=== PATIENT | female | born 1985 | race Hispanic/Latino ===

== ENCOUNTER → 2016-09-18 | Outpatient (CLI) | payer OTHER ==
[~2016-09-18] MED LIST: AMOX500T2 PO; DOCU-143 PO; FERR-74 PO; HYDR-3812 PO; IBUP-1773 PO; PREN-148 PO
--- NOTE | 2016-09-18 15:09 | Diagnostic Imaging Report ---
PROCEDURE: US OB SINGLE FETUS <14 WKS. TECHNIQUE: Multiple real-time grayscale images were obtained over the gravid uterus in various projections. INDICATION: Dating. FINDINGS: The growth parameters are: Head circumference: 14 weeks and one day Abdominal circumference: 14 weeks and one day Femur length: 14 weeks and zero day These average at: 14 weeks and one day. This corresponds with PENELOPE of 03/18/2017. The cervix appears closed and measures approximately 4 cm. There is some shadowing obscuring portions of the cervix. The placental implantation is anterior and appears close to the internal os at this time. IMPRESSION: Live intrauterine . PENELOPE is 03/18/2017. survey at 18-20 weeks of gestation is recommended. Dictated by: Dictated on workstation # [id number]
== END ==
LOC: RAD 13:49
PROVIDERS: ATTEND Family Medicine
DX: Z36 Encounter for antenatal screening of mother (principal); Z3A.14 14 weeks gestation of pregnancy
CPT/HCPCS: 76801

== ENCOUNTER → 2016-10-16 | Outpatient (CLI) | payer OTHER ==
--- NOTE | 2016-10-16 14:33 | Diagnostic Imaging Report ---
INDICATION: survey. TECHNIQUE: Multiple real-time grayscale images were obtained over the gravid uterus. COMPARISON: 09/18/2016. FINDINGS: The previous OB ultrasound exam of 09/18/2016 noted a single live fetus of approximately 14 weeks 1 day gestation +/- 1 week. On this study, the fetus is again identified. The fetus is cephalic in presentation. heart motion is noted and a rate of 142 bpm is recorded. There are no abnormalities identified, but the cord insertion is not well visualized. The placenta is posterior and there is no previa. The amniotic fluid volume is within normal limits. The growth parameters are fairly uniform and have progressed as expected since the prior exam. IMPRESSION: 1. There is a single live fetus of approximately 18 weeks 1 day gestation +/- 1 week. The EDC remains March 18, 2017. 2. There are no abnormalities identified although the cord insertion is not well visualized. It may prove worthwhile to have a short-term (4-6 weeks) follow-up exam for further evaluation of the cord insertion. 3. The growth parameters have progressed as expected since the prior study. Biometrical measurements are as follows: Biparietal 3.8 cm, age 17 weeks 4 days. Head circumference 14.2 cm, age 17 weeks 4 days. Abdominal circumference 11.8 cm, age 17 weeks 4 days. Femur length 2.6 cm, age 18 weeks 0 days. Sonographic estimate age: 17 weeks 5 days. Sonographic estimated date of delivery: 03/21/17. Estimated Weight: 207 gm (+/- 30 gm). LMP percentile: 22%. heart rate: 142 beats per minute. number: 1 of 1. Dictated by: Dictated on workstation # [id number]
== END ==
LOC: RAD 10:03
PROVIDERS: ATTEND Family Medicine
DX: Z36 Encounter for antenatal screening of mother (principal); Z3A.17 17 weeks gestation of pregnancy
CPT/HCPCS: 76805

== ENCOUNTER 2017-03-15 08:58 | Inpatient (IN) | payer SELFPAY ==
[~2017-03-15] VITALS: Ht 152.4 cm; Wt 65.8 kg
[~2017-03-15 08:58] MED LIST changes: +ACHD5005 PO; -FERR-74 PO; +FERR325T18 PO; -HYDR-3812 PO
[2017-03-15] MEDS ORDERED: CITRIC ACID/SOB CIT (BICITRA) 30 ML UDC ONE (09:01)
[2017-03-15] MEDS ORDERED: ceFAZolin 2 GM/50 ML NS 50 ML ONE (09:01)
[2017-03-15] MEDS ORDERED: METOCLOPRAMIDE INJ 10 MG/2 ML (REGLAN) ONE (09:01)
[2017-03-15] MEDS ORDERED: FAMOTIDINE 20MG/2ML IV (PEPCID) ONE (09:01)
[2017-03-15] MEDS: LACTATED RINGERS 1,000 ML IV PRN ×2 (09:10→10:21)
[2017-03-15] MEDS ORDERED: D5 LR IV SOLUTION 1,000 ML IV SCH (09:21)
[2017-03-15 09:27] LABS: BASOPHILS % (AUTO) 0 % (0-10); EOSINOPHILS % (AUTO) 0 % (0-10); HEMATOCRIT 39 % (35-52); HEMOGLOBIN 13.2 G/DL (11.5-16.0); LYMPHOCYTES % (AUTO) 21 % (12-44); MEAN CORPUSCULAR HEMOGLOBIN 28 PG (25-34); MEAN CORPUSCULAR HGB CONC 34 G/DL (32-36); MEAN CORPUSCULAR VOLUME 82 FL (80-99); MEAN PLATELET VOLUME 10.7 FL (7.4-10.4); MONOCYTES # (AUTO) 0.6 X 10^3 (0.0-1.0); MONOCYTES % (AUTO) 7 % (0-12); NEUTROPHILS # (AUTO) 6.7 X 10^3 (1.8-7.8); NEUTROPHILS % (AUTO) 72 % (42-75); PLATELET COUNT 302 10^3/uL (130-400); RED BLOOD COUNT 4.73 10^6/uL (4.35-5.85); RED CELL DISTRIBUTION WIDTH 14.1 % (10.0-14.5); WHITE BLOOD COUNT 9.4 10^3/uL (4.3-11.0)
[2017-03-15 09:30] VITALS: BP 130/88
[2017-03-15] MEDS ORDERED: MINERAL OIL CONCENTRATE 99.9% 15 ML UDC TOP PRN (09:30)
--- NOTE | 2017-03-15 09:48 | Progress Note-Standard ---
Standard Progress Note Progress Notes/Assess & Plan Date Seen by Provider: Mar 15, 2017 Time Seen by Provider: 09:35 Progress/Assessment & Plan This 31-year-old presented today in active labor at 8 cm. This patient followed for care at [facility] and has a significant history for severe shoulder dystocia lasting greater than 5 minutes last previous delivery. Upon screening the patient is no obvious risk factors for shoulder dystocia but given her history of what happened with the last delivery and the records being reviewed section was recommended. I was contacted for delivery of care. Medical history: None Surgical history: None Medications: vitamin Allergies: None heart tracing: Baseline of 150 with minimal to moderate variability, some early decelerations are noted. Tocometry: Contractions every 2-3 minutes noted on external tocometry Membranes intact, SVE 8\80\-1 Diagnosis: 31-year-old at 39 weeks and 3 days' gestation History of shoulder dystocia > 5 minutes Plan: It was discussed with the patient the significant risk of subsequent shoulder dystocia and infant morbidity and mortality with attempted vaginal delivery versus proceeding with therefore section was recommended. Risk of the procedure was discussed with the patient in detail, and all of her questions were answered, and consent was obtained. JANNETTE HAGEN DO Mar 15, 2017 9:48 am
[2017-03-15] MEDS ORDERED: OXYTOCIN/NORMAL SALINE 500 ML IV SCH (09:55)
[2017-03-15] MEDS ORDERED: LACTATED RINGERS 1,000 ML IV PRN (09:57)
[2017-03-15] MEDS ORDERED: MEASLES,MUMPS,RUBELLA 1 EA INJ SC SCH (10:00)
[2017-03-15] MEDS ORDERED: CATHETER FLUSH 10 ML SYR IV PRN (10:00)
[2017-03-15] MEDS ORDERED: FAMOTIDINE 20MG/2ML IV (PEPCID) IV ONE (10:00)
[2017-03-15] MEDS ORDERED: CITRIC ACID/SOB CIT (BICITRA) 30 ML UDC PO ONE (10:00)
[2017-03-15] MEDS ORDERED: TETANUS,DIPTH,PERTUSS P/F (BOOSTRIX) 0.5 ML VIAL IM SCH (10:00)
[2017-03-15] MEDS ORDERED: ONDANSETRON 4 MG/2 ML (SDV) Z0FRAN IVP PRN (10:00)
[2017-03-15] MEDS ORDERED: HYDROmorphone (DILAUDID) 2 MG/ML VIAL IVP PRN (10:00)
[2017-03-15] MEDS ORDERED: METOCLOPRAMIDE INJ 10 MG/2 ML (REGLAN) IV ONE (10:00)
--- NOTE | 2017-03-15 10:00 | Discharge Inst-Women's Service ---
Discharge Inst-Women's Serv Depart Medication/Instructions New, Converted or Re-Newed RX: RX on Chart Consults/Follow Up Additional Follow Up: Yes Orders/Referrals Dr. Saab in 7-[address] Carmona in 6 weeks Activity Activity: Activity as Tolerated Driving Instructions: No Driving for 1 Week NO SMOKING: NO SMOKING Nothing Inside Vagina: No Douching, No [place], No Tampons Diet Discharge Diet: No Restrictions Symptoms to Report to : Bleeding Excessive, Pain Increased, Fever Over 101 Degrees F, Vaginal Bleeding Increase, Questions/Concerns For Any Problems or Questions: Contact Your Physician Skin/Wound Care Infection Signs and Symptoms: Increased Redness, Foul Odor of Wound, Increased Drainage, Skin Itchy or Has a Rash, Increased Swelling, Temperature Above 101 F Operative Area Clean and Dry: Keep Incision Clean/Dry Stitches/[place]/Dermabond: Dermabond, Care of Stitches Bathing Instructions: JANNETTE Paredes DO Mar 15, 2017 10:00
[2017-03-15] MEDS ORDERED: DOCU100C37 PO (10:02)
[2017-03-15] MEDS ORDERED: IBUP-1773 PO (10:02)
[2017-03-15] MEDS ORDERED: ACHD5005 PO (10:02)
--- NOTE | 2017-03-15 10:06 | Progress Note-Post Operative ---
Post-Operative Progess Note Surgeon (s)/Scientist Propagator (s) Surgeon JANNETTE HAGEN DO Scientist Propagator: Belkys Caicedo MS4 Pre-Operative Diagnosis 39 week IUP, Hx of Shoulder dystocia > 5 min Post-Operative Diagnosis same Procedure & Operative Findings Date of Procedure 03/15/17 Procedure Performed/Findings Date of Procedure 03/15/17 Procedure Performed/Findings Once in the operating room epidural analgesia sign of adequate she's placed in supine position with leftward tilt prepped and draped in normal sterile fashion. a Pfannenstiel skin incision is made with a knife and carried down to the underlying fascia using Bovie cautery. The fascial incision is extended laterally using Bovie cautery, the superior aspect of the fascial incision is then grasped with [place] clamps, tented upward, and dissected off the underlying rectus muscles. The inferior aspect of the fascial incision is then grasped with [place] clamps and tented upward and dissected off the rectus muscles. The rectus muscles were then dissected down the midline using Metzenbaum scissors and blunt traction. Peritoneum is identified and entered bluntly and extended using blunt traction. An extra-large Eric ring retractor is placed within the peritoneal incision which offers excellent lateral sidewall retraction. The lower uterine segment is identified, a shallow incision is made to the vascular uterine peritoneum and a low transverse fashion and a bladder flap is developed using blunt dissection. The myotomy is continued until membranes were visualized at which point the uterine incision is extended laterally using banded scissors. The is found in vertex presentation with gentle fundal pressure the infant's head is elevated up to the incision and delivered through the incision. The nares and oropharynx are bulb suctioned, the anterior posterior shoulders were then delivered and the infant is then brought onto the operative field with a cortisol clamped and cut is handed off to waiting nurses in attendance. Cord blood is collected. Three-vessel cord with intact placenta is delivered spontaneously thereafter, IV Pitocin is initiated to facilitate uterine contractions. The uterus becomes firm and bimanual massage the endometrium endometrial cavity is cleared of all clots and debris. The uterus is then exteriorized, I then closed the uterine incision using 0 Vicryl suture running locked fashion, a second layer of imbricating 0 Monocryl was placed excellent hemostasis is noted after doing this. The uterus is in place back within the pelvis, with the pelvis is copious E irrigated using normal saline. Once again no active bleeding is noted from any my dissection planes. I placed Interceed anti-adhesive over my low-transverse incision and proceeded with closing the peritoneum. The peritoneum is reapproximated using 2-0 Vicryl suture in a running fashion. The rectus muscle reapproximated using 3-0 Vicryl suture in an interrupted fashion. The fascia approximated using 0 Vicryl suture running fashion. The subcutaneous tissue was reapproximated using 0 plain in an interrupted subcutaneous stitch and the skin reapproximated using jasen. The patient tolerated the procedure well and was taken to recovery area in stable condition. Lap and sponge count is correct at end of the procedure instrument counts correct as well. 1 g of Ancef were given preoperatively for infection prophylaxis. Anesthesia Type spinal Estimated Blood Loss Estimated blood loss (mL): 500 Specimens/Packing Specimens Removed placenta HIEUJANNETTE Mar 15, 2017 10:06
[2017-03-15] MEDS ORDERED: fentaNYL INJECTION 100 MCG/2 ML AMP ONE (10:13)
[2017-03-15] MEDS ORDERED: NALOXONE 0.4 MG/ML 1 ML (NARCAN) VIAL IV PRN (11:15)
[2017-03-15] MEDS ORDERED: diphenhydrAMINE 50 MG/ML INJ (BENADRYL) IV PRN (11:15)
[2017-03-15] MEDS ORDERED: ONDANSETRON 4 MG/2 ML (SDV) Z0FRAN IV PRN (11:15)
--- NOTE | 2017-03-15 12:35 | History & Physical-OB ---
OB - Chief Complaint & HPI Date/Time Date of Admission: Date of Admission: Mar 15, 2017 at 09:19 Time Seen by Provider: 09:00 Chief Complaint/History OB-Reason for Admission/Chief: Onset of Labor (Presented dilated to 7) Hx : 4 Hx Para: 3 Expected Date of Delivery: Mar 18, 2017 Gestational Age in Weeks: 39 Gestational Age in Days: 4 Allergies and Home Medications Allergies Coded Allergies: No Known Drug Allergies (Unverified , 05/18/15) Home Medications Docusate Sodium 100 Mg Capsule, 100 MG PO BID PRN for constipation, #60 Ref 0 Prescribed by: MELVIN COHEN on 11/14/15 0826 Docusate Sodium 100 Mg Capsule, 100 MG PO BID PRN for CONSTIPATION-1ST LINE, #40 Prescribed by: JANNETTE HAGEN on 03/15/17 1002 Ferrous Sulfate 325 Mg Tablet, 325 MG PO DAILY@0700, #30 Ref 0 Prescribed by: MELVIN COHEN on 11/14/15 0824 Hydrocodone Bit/Acetaminophen 1 Each Tablet, 1-2 TAB PO Q4H PRN for PAIN, #60 Ref 0 Prescribed by: MELVIN COHEN on 11/14/15 0824 Hydrocodone Bit/Acetaminophen 1 Tab Tab, 1-2 TAB PO Q4H PRN for PAIN-MODERATE, # 50 Prescribed by: JANNETTE HAGEN on 03/15/17 1002 Ibuprofen 600 Mg Tablet, 600 MG PO Q6H PRN for PAIN, #60 Ref 0 Prescribed by: MELVIN COHEN on 11/14/15 0824 Ibuprofen 600 Mg Tablet, 600 MG PO Q6H, #80 Prescribed by: JANNETTE HAGEN on 03/15/17 1002 Vit #76/Iron,Carb/FA 1 Each Tablet, 1 EACH PO DAILY, (Reported) OB - History Hx of Present Care: Yes Ultrasounds: Normal mid trimester US Obstetrical Complications: None Medical Complications: None Information Induced Hypertension: No Maternal Gestational Diabetes: No Hemorrhage: Yes (Required 2 units) Obstetrical History Hx : 4 Hx Para: 3 Hx Termination: No Hx Multiple Gestation: No Hx Stillbirth: No Hx Complication: Yes (HEMORRHAGE) Hx Induced Hypertens: No Hx Maternal Gestational Diabet: No Hx Hemorrhage: Yes Delivery History Hx Dystocia: Yes (>5 mins that required 4th degree episotomy) Hx Vacuum Extraction Assisted: Yes Hx Large For Gestational Age I: Yes Hx Small for Gestational Age I: No Hx Section: No Hx Vaginal Delivery Post C-Sec: No Hx Blood Disorders: No Adverse Rxn to Tranfusion: No Patient Past Medical History No chronic medical problems Social History/Family History HIV/AIDS: No Recent Infectious Disease Expo: No Sexually Transmitted Disease: No Alcohol Use: Denies Use Recreational Drug Use: No Smoking Cessation: Never smoker 2nd Hand Smoke Exposure: No Immunizations Rubella: immune RPR/VDRL: Negative GBS Status: Negative HBsAG: Negative OB - Admission Exam Physical Exam Vitals: Vital Signs 03/15/17 09:30 Temp 98.1 Pulse 120 Resp 20 B/P (MAP) 130/88 (102) HEENT: NCAT Heart: Rhythm Normal Lungs: Clear Abdomen: Gravid Extremities: Normal Reflexes: Normal Cervical Dilatation: 8cm Effacement: 100% Station: 0 Membranes: Intact Heart Rate: 140's Accelerations: Accelerations Present Decelerations: No Decelerations Short Term Variability: Present Frequency of Contractions: 5 mins Intensity: Firm Labs Laboratory Tests Test 03/15/17 09:10 Range/Units White Blood Count 9.4 4.3-11.0 10^3/uL Red Blood Count 4.73 4.35-5.85 10^6/uL Hemoglobin 13.2 11.5-16.0 G/DL Hematocrit 39 35-52 % Mean Corpuscular Volume 82 80-99 FL Mean Corpuscular Hemoglobin 28 25-34 PG Mean Corpuscular Hemoglobin Concent 34 32-36 G/DL Red Cell Distribution Width 14.1 10.0-14.5 % Platelet Count 302 130-400 10^3/uL Mean Platelet Volume 10.7 H 7.4-10.4 FL Neutrophils (%) (Auto) 72 42-75 % Lymphocytes (%) (Auto) 21 12-44 % Monocytes (%) (Auto) 7 0-12 % Eosinophils (%) (Auto) 0 0-10 % Basophils (%) (Auto) 0 0-10 % Neutrophils # (Auto) 6.7 1.8-7.8 X 10^3 Lymphocytes # (Auto) 2.0 1.0-4.0 X 10^3 Monocytes # (Auto) 0.6 0.0-1.0 X 10^3 Eosinophils # (Auto) 0.0 0.0-0.3 10^3/uL Basophils # (Auto) 0.0 0.0-0.1 10^3/uL OB - Assessment/Plan/Diagnosis Plan Plan: Section Other Plan 31 yo @ 39.4 wga here in active labor Plan - Plan for primary c/s given previous traumatic vaginal deliveries with shoulder dystocia and hemorrhage - Dr Hagen notified and agrees with plan and consulted for C/s Copy Copies To 1: YAJAIRA CRANE MD, HOLLY R MD Mar 15, 2017 12:35
[2017-03-15 12:45] VITALS: BP 101/68
[2017-03-15] MEDS ORDERED: CATHETER FLUSH 10 ML SYR IV SCH ×2 (14:00)
[2017-03-15] MEDS: KETOROLAC 30 MG/ML VIAL IVP SCH ×2 (14:00→20:50)
[2017-03-15 17:38] VITALS: BP 103/63
[2017-03-15 18:32] VITALS: BP 134/77
[2017-03-15] MEDS: DOCUSATE SODIUM 100 MG (COLACE) CAP PO SCH (20:51)
[2017-03-15 23:15] VITALS: BP 105/60
[2017-03-16] MEDS: HYDROcodone/APAP 5 MG/325 MG (LORTAB) TAB PO PRN ×3 (01:22→13:55)
[2017-03-16 03:30] VITALS: BP 100/59
[2017-03-16] MEDS: KETOROLAC 30 MG/ML VIAL IVP SCH ×2 (03:30→20:43)
[2017-03-16 05:23] LABS: BASOPHILS % (AUTO) 0 % (0-10); EOSINOPHILS # (AUTO) 0.1 10^3/uL (0.0-0.3); EOSINOPHILS % (AUTO) 1 % (0-10); HEMATOCRIT 35 % (35-52); HEMOGLOBIN 11.8 G/DL (11.5-16.0); LYMPHOCYTES # (AUTO) 2.1 X 10^3 (1.0-4.0); LYMPHOCYTES % (AUTO) 19 % (12-44); MEAN CORPUSCULAR HEMOGLOBIN 29 PG (25-34); MEAN CORPUSCULAR HGB CONC 34 G/DL (32-36); MEAN CORPUSCULAR VOLUME 84 FL (80-99); MEAN PLATELET VOLUME 10.2 FL (7.4-10.4); MONOCYTES # (AUTO) 0.8 X 10^3 (0.0-1.0); MONOCYTES % (AUTO) 7 % (0-12); NEUTROPHILS # (AUTO) 8.3 X 10^3 (1.8-7.8); NEUTROPHILS % (AUTO) 74 % (42-75); PLATELET COUNT 270 10^3/uL (130-400); RED BLOOD COUNT 4.13 10^6/uL (4.35-5.85); RED CELL DISTRIBUTION WIDTH 14.2 % (10.0-14.5); WHITE BLOOD COUNT 11.3 10^3/uL (4.3-11.0)
[2017-03-16 08:00] VITALS: BP 100/61
[2017-03-16] MEDS: DOCUSATE SODIUM 100 MG (COLACE) CAP PO SCH ×2 (08:25→21:34)
[2017-03-16] MEDS: IBUPROFEN 600 MG (MOTRIN) TAB PO SCH ×3 (08:26→21:34)
--- NOTE | 2017-03-16 08:28 | Progress Note-Standard ---
Standard Progress Note Progress Notes/Assess & Plan Date Seen by Provider: Mar 16, 2017 Time Seen by Provider: 08:15 Progress/Assessment & Plan Patient is doing well POD 1 PLTCS. Reports decent pain control, pain medication to be given this AM. Ambulating and voiding freely. Vital Sign - Last 24 Hours 03/15/17 03/15/17 03/15/17 03/15/17 09:30 12:45 15:49 17:38 Temp 98.1 97.9 97.9 Pulse 120 64 69 Resp 20 20 20 B/P (MAP) 130/88 (102) 101/68 (79) 103/63 (76) Pulse Ox 99 O2 Delivery Room Air 03/15/17 03/15/17 03/15/17 03/15/17 18:32 19:33 20:16 23:15 Temp 97.5 97.7 98.4 Pulse 94 62 62 67 Resp 20 14 16 B/P (MAP) 134/77 (96) 105/60 (75) Pulse Ox 99 97 97 96 03/16/17 03:30 Temp 97.1 Pulse 79 Resp 18 B/P (MAP) 100/59 (73) Intake and Output 03/15/17 03/15/17 03/16/17 15:00 23:00 07:00 Intake Total 1050 ml 2080 ml Output Total 75 ml 300 ml 400 ml Balance 975 ml 1780 ml -400 ml Incision: c/d/i Laboratory Tests Test 03/15/17 09:10 03/16/17 05:15 Range/Units White Blood Count 9.4 11.3 H 4.3-11.0 10^3/uL Red Blood Count 4.73 4.13 L 4.35-5.85 10^6/uL Hemoglobin 13.2 11.8 11.5-16.0 G/DL Hematocrit 39 35 35-52 % Mean Corpuscular Volume 82 84 80-99 FL Mean Corpuscular Hemoglobin 28 29 25-34 PG Mean Corpuscular Hemoglobin Concent 34 34 32-36 G/DL Red Cell Distribution Width 14.1 14.2 10.0-14.5 % Platelet Count 302 270 130-400 10^3/uL Mean Platelet Volume 10.7 H 10.2 7.4-10.4 FL Neutrophils (%) (Auto) 72 74 42-75 % Lymphocytes (%) (Auto) 21 19 12-44 % Monocytes (%) (Auto) 7 7 0-12 % Eosinophils (%) (Auto) 0 1 0-10 % Basophils (%) (Auto) 0 0 0-10 % Neutrophils # (Auto) 6.7 8.3 H 1.8-7.8 X 10^3 Lymphocytes # (Auto) 2.0 2.1 1.0-4.0 X 10^3 Monocytes # (Auto) 0.6 0.8 0.0-1.0 X 10^3 Eosinophils # (Auto) 0.0 0.1 0.0-0.3 10^3/uL Basophils # (Auto) 0.0 0.0 0.0-0.1 10^3/uL Diagnosis: 31-year-old at 39 weeks and 3 days' gestation POD 1 PLTCS History of shoulder dystocia > 5 minutes Plan: Continue routine PO care Encourage ambulation Anticipate dc tomorrow JANNETTE HAGEN DO Mar 16, 2017 08:28
[2017-03-16 13:00] VITALS: BP 96/61
[2017-03-16 16:25] VITALS: BP 92/54
[2017-03-16 21:34] VITALS: BP 98/67
[2017-03-17] MEDS: IBUPROFEN 600 MG (MOTRIN) TAB PO SCH ×2 (02:34→08:57)
[2017-03-17 02:35] VITALS: BP 92/57
[2017-03-17] MEDS: HYDROcodone/APAP 5 MG/325 MG (LORTAB) TAB PO PRN ×2 (02:35→12:48)
[2017-03-17 08:49] VITALS: BP 98/57
--- NOTE | 2017-03-17 08:50 | Progress Note-Standard ---
Standard Progress Note Progress Notes/Assess & Plan Date Seen by Provider: Mar 17, 2017 Time Seen by Provider: 08:30 Progress/Assessment & Plan Patient is doing well POD 2 PLTCS. Reports decent pain control, pain medication to be given this AM. Ambulating and voiding freely. Vital Sign - Last 24 Hours 03/16/17 03/16/17 03/16/17 03/17/17 13:00 16:25 21:34 02:35 Temp 97.7 98.7 98.6 98.1 Pulse 70 71 90 66 Resp 18 B/P (MAP) 96/61 (73) 92/54 (67) 98/67 (77) 92/57 (69) Pulse Ox 97 98 100 99 O2 Delivery Room Air Room Air Room Air Room Air Intake and Output 03/16/17 03/16/17 03/17/17 15:00 23:00 07:00 Intake Total 1630 ml 800 ml Output Total 1075 ml 1000 ml Balance 555 ml -200 ml Incision: c/d/i Diagnosis: 31-year-old at 39 weeks and 3 days' gestation POD 2 PLTCS History of shoulder dystocia > 5 minutes Plan: Continue routine PO care Encourage ambulation Anticipate dc today JANNETTE HAGEN DO Mar 17, 2017 8:50 am
[2017-03-17 13:00] VITALS: BP 108/67
[2017-03-17 14:00] VITALS: BP 108/67
== END 2017-03-17 14:00 | disposition home or self-care (01) | DRG 766 ==
LOC: WSo 08:58 → LDRP 08:59 → WSo 09:19 → LDRP 09:19
PROVIDERS: ADMIT Family Medicine; ATTEND Family Medicine
PROC: 10D00Z1 Extraction of Products of Conception, Low, Open Approach (ICD-10-PCS; principal; 2017-03-15 10:02)
DX: O26.893 Other specified pregnancy related conditions, third trimester (principal); Z37.0 Single live birth; Z3A.39 39 weeks gestation of pregnancy
CPT/HCPCS: 36415; 85025; 86850; 86900; 86901; 94664; 99212

== ENCOUNTER 2017-12-02 04:34 | Emergency (ER) | payer MEDICAID, OTHER ==
[~2017-12-02] VITALS: Ht 152.4 cm; Wt 65.8 kg
[~2017-12-02 04:34] MED LIST changes: +DOCU100C37 PO
[2017-12-02] MEDS ORDERED: fentaNYL INJECTION 100 MCG/2 ML AMP IVP STA (04:58)
[2017-12-02] MEDS ORDERED: NS IV 1000 ML 1,000 ML IV STA (04:58)
[2017-12-02] MEDS ORDERED: ONDANSETRON 4 MG/2 ML (SDV) Z0FRAN IVP ONE (05:00)
--- NOTE | 2017-12-02 05:05 | ED Abdominal Pain ---
General Stated Complaint: ABD PAIN Source of Information: Patient, Family Exam Limitations: Language Barrier (DALE REMY MD) History of Present Illness Date Seen by Provider: Dec 02, 2017 Time Seen by Provider: 04:47 Initial Comments Here with report of abdominal pain associated with fever, vomiting and diarrhea. This is been going on for 3 days. Reports that is left-sided but also periumbilical. Hurts when she walks or moves. 3 weeks ago had a box fall at work on the right side and had a little pain from that but this appears to be different and is on the left side. Does have some mild back pain. Does report some pain with urination. Timing/Duration: 2-3 Days Severity/Quality: Moderate, Severe, Aching Location: LLQ, Periumbilical Radiation: RLQ, Back Activities at Onset: None Modifying Factors: Improves With Analgesics (Tylenol helping a little with the fever); Worsens With Movement Associated Symptoms: Back Pain; No Chest Pain; Fever/Chills, Nausea/Vomiting; No Shortness of Air (DALE REMY MD) Allergies and Home Medications Allergies Coded Allergies: No Known Drug Allergies (Unverified , 05/18/15) Home Medications Docusate Sodium 100 Mg Capsule, 100 MG PO BID PRN for CONSTIPATION-1ST LINE Prescribed by: JANNETTE HAGEN on 03/15/17 1002 Hydrocodone Bit/Acetaminophen 1 Tab Tab, 1-2 TAB PO Q4H PRN for PAIN-MODERATE Prescribed by: JANNETTE HAGEN on 03/15/17 1002 Ibuprofen 600 Mg Tablet, 600 MG PO Q6H Prescribed by: JANNETTE HAGEN on 03/15/17 1002 Vit #76/Iron,Carb/FA 1 Each Tablet, 1 EACH PO DAILY, (Reported) Patient Home Medication List Home Medication List Reviewed: Yes (DALE REMY MD) Review of Systems Review of Systems Constitutional: chills, fever EENTM: No Symptoms Reported Respiratory: No Symptoms Reported Cardiovascular: No Symptoms Reported Gastrointestinal: See HPI, Abdominal Pain, Diarrhea, Nausea, Vomiting Genitourinary: Burning, Pain Musculoskeletal: back pain, muscle pain Skin: no symptoms reported Psychiatric/Neurological: No Symptoms Reported (DALE REMY MD) All Other Systems Reviewed Negative Unless Noted: Yes (DALE REMY MD) Past Cfwvsud-Fntjht-Bxqqwh Hx Past Med/Social Hx: Reviewed Nursing Past Med/Soc Hx (DALE REMY MD) Patient Social History Alcohol Use: Denies Use Recreational Drug Use: No Smoking Status: Never a Smoker 2nd Hand Smoke Exposure: No Recent Foreign Travel: No Contact w/Someone Who Travel: No (DALE REMY MD) Immunizations Up To Date Date of Influenza Vaccine: Dec 29, 2016 (DALE REMY MD) Seasonal Allergies Seasonal Allergies: No (DALE REMY MD) Past Medical History Surgeries: No Respiratory: No Cardiac: No Neurological: No Reproductive Disorders: No Sexually Transmitted Disease: No HIV/AIDS: No Gastrointestinal: No Musculoskeletal: No Endocrine: No Cancer: No Psychosocial: No Integumentary: No Blood Disorders: No Adverse Reaction/Blood Tranf: No (DALE REMY MD) Family Medical History Reviewed Nursing Family Hx (DALE REMY MD) Patient reports no known family medical history. No Pertinent Family Hx (DALE REMY MD) Physical Exam Vital Signs Vital Signs - First Documented 12/02/17 05:05 Temp 99.9 Pulse 113 Resp 20 B/P (MAP) 116/73 (87) Pulse Ox 100 O2 Delivery Room Air (TERESITA,AMELIA K DO) Vital Signs Capillary Refill : (DALE REMY MD) Height/Weight/BMI Height: 5'0.00" Weight: 145lbs. 2.0oz. [id number]; 28.3 BMI Method: General Appearance: WD/WN, mild distress HEENT: PERRL/EOMI, pharynx normal Neck: full range of motion, supple Respiratory: lungs clear, normal breath sounds Cardiovascular: no murmur, tachycardia Peripheral Pulses: 2+ Dorsalis Pedis (R), 2+ Left Dors-Pedis (L), 2+ Radial Pulses (R), 2+ Radial Pulses (L) Gastrointestinal: soft, tenderness (across the lower abdomen with the greatest on the left lower quadrant and to a lesser extent in the right lower quadrant) Extremities: non-tender, normal inspection Back: no CVA tenderness, other (mild pain in the area of low thoracic upper lumbar region.) Neurologic/Psychiatric: no motor/sensory deficits, alert, oriented x 3 Skin: normal color, warm/dry (DALE REMY MD) Focused Exam Lactate Level 12/02/17 05:05: Lactic Acid Level 1.01 (AMELAI HAYES DO) Lactic Acid Level Laboratory Tests Test 12/02/17 05:05 Lactic Acid Level 1.01 MMOL/L (0.50-2.00) (AMELIA HAYES DO) Progress/Results/Core Measures Results/Orders Lab Results Laboratory Tests Test 12/02/17 04:57 12/02/17 05:05 Range/Units Urine Color YELLOW Urine Clarity CLEAR Urine pH 6 5-9 Urine Specific [place] 1.020 1.016-1.022 Urine Protein NEGATIVE NEGATIVE Urine Glucose (UA) NEGATIVE NEGATIVE Urine Ketones NEGATIVE NEGATIVE Urine Nitrite NEGATIVE NEGATIVE Urine Bilirubin NEGATIVE NEGATIVE Urine Urobilinogen 1 NORMAL MG/DL Urine Leukocyte Esterase 1+ H NEGATIVE Urine RBC (Auto) NEGATIVE NEGATIVE Urine RBC NONE /HPF Urine WBC 0-2 /HPF Urine Squamous Epithelial Cells RARE /HPF Urine Crystals NONE /LPF Urine Bacteria FEW H /HPF Urine Casts NONE /LPF Urine Mucus SMALL H /LPF Urine Culture Indicated YES White Blood Count 12.3 H 4.3-11.0 10^3/uL Red Blood Count 5.11 4.35-5.85 10^6/uL Hemoglobin 14.6 11.5-16.0 G/DL Hematocrit 42 35-52 % Mean Corpuscular Volume 82 80-99 FL Mean Corpuscular Hemoglobin 29 25-34 PG Mean Corpuscular Hemoglobin Concent 35 32-36 G/DL Red Cell Distribution Width 13.0 10.0-14.5 % Platelet Count 316 130-400 10^3/uL Mean Platelet Volume 10.1 7.4-10.4 FL Neutrophils (%) (Auto) 74 42-75 % Lymphocytes (%) (Auto) 12 12-44 % Monocytes (%) (Auto) 8 0-12 % Eosinophils (%) (Auto) 6 0-10 % Basophils (%) (Auto) 0 0-10 % Neutrophils # (Auto) 9.0 H 1.8-7.8 X 10^3 Lymphocytes # (Auto) 1.4 1.0-4.0 X 10^3 Monocytes # (Auto) 1.0 0.0-1.0 X 10^3 Eosinophils # (Auto) 0.8 H 0.0-0.3 10^3/uL Basophils # (Auto) 0.0 0.0-0.1 10^3/uL Sodium Level 137 135-145 MMOL/L Potassium Level 3.7 3.6-5.0 MMOL/L Chloride Level 106 98-107 MMOL/L Carbon Dioxide Level 20 L 21-32 MMOL/L Anion Gap 11 5-14 MMOL/L Blood Urea Nitrogen 11 7-18 MG/DL Creatinine 0.72 0.60-1.30 MG/DL Estimat Glomerular Filtration Rate > 60 BUN/Creatinine Ratio 15 Glucose Level 92 70-105 MG/DL Lactic Acid Level 1.01 0.50-2.00 MMOL/L Calcium Level 9.4 8.5-10.1 MG/DL Corrected Calcium 9.2 8.5-10.1 MG/DL Total Bilirubin 0.4 0.1-1.0 MG/DL Aspartate Amino Transf (AST/SGOT) 25 5-34 U/L Alanine Aminotransferase (ALT/SGPT) 26 0-55 U/L Alkaline Phosphatase 88 40-136 U/L C-Reactive Protein High Sensitivity 1.18 H 0.00-0.50 MG/DL Total Protein 7.9 6.4-8.2 GM/DL Albumin 4.3 3.2-4.5 GM/DL Lipase 29 8-78 U/L (AMELIA HAYES DO) My Orders Orders - AMELIA HAYES DO Us Non Ob Pelvis Comp/Transvag (12/02/17 07:13) (AMELIA HAYES DO) Medications Given in ED Current Medications Medications Dose Ordered Sig/Luze Lena Route Start Time Stop Time Status Last Admin Dose Admin Iohexol 100 ml ONCE ONCE IV 12/02/17 05:45 12/02/17 05:46 DC 12/02/17 05:46 100 ML Ondansetron HCl 4 mg ONCE ONCE IVP 12/02/17 05:00 12/02/17 05:01 DC 12/02/17 05:09 4 MG Sodium Chloride 250 ml ONCE ONCE IV 12/02/17 05:45 12/02/17 05:46 DC 12/02/17 05:46 80 ML (AQUILINO HAYESA Berry PAREDES) Vital Signs/I&O 12/02/17 05:05 Temp 99.9 Pulse 113 Resp 20 B/P (MAP) 116/73 (87) Pulse Ox 100 O2 Delivery Room Air (AMELIA HAYES DO) Progress Progress Note : Progress Note Seen and evaluated. IV, labs, UA, UCG, blood cultures and lactic acid ordered. Normal saline 1 L bolus, Zofran 4 mg IV and fentanyl 50 g IV ordered. Anticipate CT abdomen and pelvis. 0615: Patient resting comfortably. I did discuss all the findings and concerns with patient and family regarding CT scan. We will get a ultrasound due to left ovarian cyst finding an pain. This is likely hemorrhagic but will rule out torsion. Also informed family of renal cyst requiring further evaluation at community done as outpatient. She will need follow-up for this. Ultrasound ordered. Care transferred to Dr. Hayes pending ultrasound results. (DALE REMY MD) Progress Note : Progress Note 0600--ASSUMED CARE FROM DR. REMY, ULTRASOUND PENDING (AMELIA HAYES DO) Diagnostic Imaging Diagonstic Imaging: CT Plain Films/CT/US/NM/MRI: abdomen, pelvis Comments 1. Prominent mesenteric lymph nodes along with fluid seen throughout the small bowel and suspected mild wall thickening with hyperemia raises concern for infectious versus inflammatory enteritis. 2. Multiple cortical right renal cyst, some of which contained thin internal septations. Non-emergent renal mass protocol CT versus MRI is recommended for further evaluation. 3. A 1.5 cm left ovarian hemorrhagic cyst. Pelvic ultrasound may be obtained for further evaluation. 4. Probable under distention of the urinary bladder. Correlate with urinalysis to exclude cystitis. 5. Hepatic steatosis. 6. Left-sided pelvic congestion syndrome is suggested. Reviewed: Reviewed Night [facility] Study, Reviewed by Me (DALE REMY MD) Comments PELVIS ULTRASOUND--IUD IN PLACE, LEFT OVARY NOT VISUALIZED, NO ACUTE ABNORMALITIES PER RADIOLOGIST REPORT @ 1014 Reviewed: Reviewed by Me (AMELIA HAYES DO) Departure Impression Primary Impression: Gastroenteritis Additional Impression: UTI (urinary tract infection) Disposition: 01 HOME, SELF-CARE Condition: Improved Departure-Patient Inst. Referrals: HUNTER REED DO (PCP/Family) Primary Care Physician Patient Instructions: Viral Gastroenteritis, Adult (DC), Urinary Tract Infection, Adult (DC) Add. Discharge Instructions: CLEAR LIQUIDS--WATER, BROTH, JELLO, GATORADE BRATS DIET--BANANAS, RICE, APPLESAUCE, TOAST, SALTINES TYLENOL AND MOTRIN NEEDED FOR PAIN FOLLOW UP WITH YOUR DR IN 2-3 DAYS IF NO BETTER Follow-up with your primary care doctor regarding cyst on the right kidney as you need further evaluation on an outpatient basis. Scripts Ondansetron (Zofran Odt) 4 Mg Tab.rapdis 4 MG PO Q4H for Nausea/Vomiting, #10 TAB Prov: AMELIA HAYES DO 12/02/17 Nitrofurantoin Monohyd/M-Cryst (Macrobid 100 mg Capsule) 100 Mg Capsule 100 MG PO BID, #20 CAP Prov: AMELIA HAYES DO 12/02/17 Copy Copies To 1: HUNTER REED TIMOTHY D MD Dec 02, 2017 05:05 AMELIA HAYES DO Dec 02, 2017 10:19
[2017-12-02 05:10] LABS: BILIRUBIN,URINE NEGATIVE (NEGATIVE); GLUCOSE, URINE (UA) NEGATIVE (NEGATIVE); KETONES,URINE NEGATIVE (NEGATIVE); LEUKOCYTE ESTERASE ,URINE 1+ (NEGATIVE); NITRITE,URINE NEGATIVE (NEGATIVE); PH,URINE 6 (5-9); PROTEIN,URINE NEGATIVE (NEGATIVE); UROBILINOGEN,URINE 1 MG/DL (NORMAL)
[2017-12-02 05:11] LABS: CLARITY,URINE CLEAR; COLOR,URINE YELLOW
[2017-12-02 05:12] LABS: WBC,URINE 0-2 /HPF
[2017-12-02 05:13] LABS: BACTERIA,URINE FEW /HPF; SQUAMOUS EPITHELIAL CELL,UR RARE /HPF
[2017-12-02 05:16] LABS: BASOPHILS % (AUTO) 0 % (0-10); EOSINOPHILS # (AUTO) 0.8 10^3/uL (0.0-0.3); EOSINOPHILS % (AUTO) 6 % (0-10); HEMATOCRIT 42 % (35-52); HEMOGLOBIN 14.6 G/DL (11.5-16.0); LYMPHOCYTES # (AUTO) 1.4 X 10^3 (1.0-4.0); LYMPHOCYTES % (AUTO) 12 % (12-44); MEAN CORPUSCULAR HEMOGLOBIN 29 PG (25-34); MEAN CORPUSCULAR HGB CONC 35 G/DL (32-36); MEAN CORPUSCULAR VOLUME 82 FL (80-99); MEAN PLATELET VOLUME 10.1 FL (7.4-10.4); MONOCYTES % (AUTO) 8 % (0-12); NEUTROPHILS % (AUTO) 74 % (42-75); PLATELET COUNT 316 10^3/uL (130-400); RED BLOOD COUNT 5.11 10^6/uL (4.35-5.85); WHITE BLOOD COUNT 12.3 10^3/uL (4.3-11.0)
[2017-12-02 05:45] LABS: ALANINE AMINOTRANSFERASE 26 U/L (0-55); ALBUMIN 4.3 GM/DL (3.2-4.5); ALKALINE PHOSPHATASE 88 U/L (40-136); BILIRUBIN,TOTAL 0.4 MG/DL (0.1-1.0); BUN/CREATININE RATIO 15; CALCIUM 9.4 MG/DL (8.5-10.1); CARBON DIOXIDE 20 MMOL/L (21-32); CHLORIDE 106 MMOL/L (98-107); CREATININE SERUM 0.72 MG/DL (0.60-1.30); GFR ESTIMATED > 60; GLUCOSE 92 MG/DL (70-105); LIPASE 29 U/L (8-78); POTASSIUM 3.7 MMOL/L (3.6-5.0); SODIUM 137 MMOL/L (135-145); TOTAL PROTEIN 7.9 GM/DL (6.4-8.2)
[2017-12-02] MEDS ORDERED: NS 250 ML (IVPB) BAG IV ONE (05:45)
[2017-12-02] MEDS ORDERED: IOHEXOL 350 MG/ML 100 ML (OMNIPAQUE 350) VIAL IV ONE (05:45)
--- NOTE | 2017-12-02 07:19 | Diagnostic Imaging Report ---
PROCEDURE: CT abdomen and pelvis with contrast. TECHNIQUE: Multiple contiguous axial images were obtained through the abdomen and pelvis after administration of intravenous contrast. INDICATION: Abdominal pain with nausea and vomiting for three days. Patient does have IUD. FINDINGS: Lung bases are clear. Good opacification of the aorta and abdominal organs and vessels. Vessels appear normal throughout. The liver appears normal. Gallbladder and bile ducts are normal. Pancreas is normal. The spleen is normal. Adrenal glands are normal. There are multiple cortical cyst present scattered diffusely throughout the right kidney averaging approximately 1.5 cm in size. No solid masses are demonstrated. Left kidney appears normal. There is no hydronephrosis. No intra-abdominal adenopathy. Small bowel is not distended. The colon shows very little stool throughout. The appendix is normal. There is diverticulosis of the sigmoid colon without evidence of diverticulitis. Uterus appears normal with IUD in place. There is 1.5 cm complex cyst in the left ovary. No free air or free fluid. No intra-abdominal adenopathy. No bony lesion. IMPRESSION: 1. The appendix is normal. 2. Multiple cysts within the right kidney without evidence of solid renal masses or obstruction. 3. 1.5 cm cyst in the left ovary with some internal echoes likely representing hemorrhagic cyst. Dictated by: Dictated on workstation # [id number]
--- NOTE | 2017-12-02 09:38 | Diagnostic Imaging Report ---
PROCEDURE: US Non-ob pelvis comp/trans. TECHNIQUE: Multiple realtime grayscale images were obtained of the pelvis in various projections endovaginally. Transabdominal imaging was also performed. INDICATION: Abdominal pain and irregular menses. The uterus measures 7.8 x 6.5 x 4.4 cm. No myometrial mass is seen. Endometrium is 4 mm in thickness. There is an IUD which appears to be appropriately centered in the endometrial canal. The left ovary was not visualized. Right ovary measures 3.4 x 2.2 x 1.8 cm. There is blood flow to the right ovary. No mass or free fluid is seen. IMPRESSION: 1. IUD appears to be appropriately located within the endometrial canal. 2. No significant abnormalities detected. Dictated by: Dictated on workstation # [id number]
[2017-12-02] MEDS ORDERED: ONDA4TAB8 PO (10:18)
[2017-12-02] MEDS ORDERED: NITR-65 PO (10:18)
[2017-12-02 10:56] VITALS: BP 116/73
== END 2017-12-02 10:56 | disposition home or self-care (01) ==
LOC: EDUNIT# 04:34 → ER 04:35
DX: K52.9 Noninfective gastroenteritis and colitis, unspecified (principal); N39.0 Urinary tract infection, site not specified
CPT/HCPCS: 36415; 74177; 76830; 76856; 80053; 81000; 83605; 83690; 84703; 85025; 86141; 87040; 87088

== ENCOUNTER 2018-03-19 14:49 | Emergency (ER) | payer MEDICAID, OTHER ==
[~2018-03-19] VITALS: Ht 157.5 cm; Wt 59.9 kg
[~2018-03-19 14:49] MED LIST changes: +NITR-65 PO; +ONDA4TAB8 PO
[2018-03-19] MEDS ORDERED: ONDANSETRON 4 MG/2 ML (SDV) Z0FRAN IVP ONE (15:00)
[2018-03-19] MEDS ORDERED: NS IV 1000 ML 1,000 ML IV SCH ×2 (15:00→17:00)
[2018-03-19] MEDS ORDERED: fentaNYL INJECTION 100 MCG/2 ML AMP IVP ONE (15:00)
--- NOTE | 2018-03-19 15:08 | ED Abdominal Pain ---
General Stated Complaint: ABD PAIN/VOMITING Source of Information: Patient, Family, [employer] Exam Limitations: No Limitations History of Present Illness Date Seen by Provider: Mar 19, 2018 Time Seen by Provider: 15:05 Initial Comments This 32-year-old female presents with a complaint of right-sided abdominal pain that began yesterday. Patient had associated nausea and vomiting today. The patient states that her last period was approximately a week ago. Patient has a 1 female. The patient denies use of daily medication. She denies allergies. She denies smoking drinking or drugs. The patient has had no significant constipation or dysuria. Patient was referred to the emergency department from [facility]. Allergies and Home Medications Allergies Coded Allergies: No Known Drug Allergies (Unverified , 05/18/15) Home Medications Docusate Sodium 100 Mg Capsule, 100 MG PO BID PRN for CONSTIPATION-1ST LINE Prescribed by: JANNETTE HAGEN on 03/15/17 1002 Hydrocodone Bit/Acetaminophen 1 Tab Tab, 1-2 TAB PO Q4H PRN for PAIN-MODERATE Prescribed by: JANNETTE HAGEN on 03/15/17 1002 Ibuprofen 600 Mg Tablet, 600 MG PO Q6H Prescribed by: JANNETTE HAGEN on 03/15/17 1002 Nitrofurantoin Monohyd/M-Cryst 100 Mg Capsule, 100 MG PO BID Prescribed by: AMELIA LO on 12/02/17 1018 Ondansetron 4 Mg Tab.rapdis, 4 MG PO Q4H Prescribed by: AMELIA LO on 12/02/17 1018 Vit #76/Iron,Carb/FA 1 Each Tablet, 1 EACH PO DAILY, (Reported) Patient Home Medication List Home Medication List Reviewed: Yes Review of Systems Review of Systems Constitutional: No chills, No fever EENTM: No Blurred Vision, No Ear Pain Respiratory: Denies Cough Cardiovascular: Denies Chest Pain Gastrointestinal: Abdominal Pain; Denies Diarrhea; Nausea, Vomiting Genitourinary: No Symptoms Reported; Denies Frequency, Denies Flank Pain Musculoskeletal: No back pain Skin: No change in color, No rash Psychiatric/Neurological: No Symptoms Reported Endocrine: No Symptoms Reported Hematologic/Lymphatic: No Symptoms Reported Past Xbalugg-Ouwugt-Yoqaey Hx Past Med/Social Hx: Reviewed Nursing Past Med/Soc Hx Patient Social History 2nd Hand Smoke Exposure: No Recent Foreign Travel: No Contact w/Someone Who Travel: No Immunizations Up To Date Date of Influenza Vaccine: Dec 29, 2016 Seasonal Allergies Seasonal Allergies: No Past Medical History Surgeries: No Respiratory: No Cardiac: No Neurological: No Reproductive Disorders: No Sexually Transmitted Disease: No HIV/AIDS: No Gastrointestinal: No Musculoskeletal: No Endocrine: No Cancer: No Psychosocial: No Integumentary: No Blood Disorders: No Adverse Reaction/Blood Tranf: No Family Medical History Patient reports no known family medical history. No Pertinent Family Hx Physical Exam Vital Signs Vital Signs - First Documented 03/19/18 14:56 Temp 98.7 Pulse 73 Resp 18 B/P (MAP) 124/82 (96) Pulse Ox 99 O2 Delivery Room Air Capillary Refill : Height/Weight/BMI Height: 5'0.00" Weight: 145lbs. 2.0oz. 65.860002lv; 28.3 BMI Method:Stated General Appearance: mild distress HEENT: normal ENT inspection Neck: non-tender, full range of motion, normal inspection Respiratory: lungs clear Cardiovascular: regular rate, rhythm Gastrointestinal: abnormal bowel sounds (hypoactive), tenderness (right upper and right lower quadrants) Extremities: normal range of motion, non-tender, normal inspection Back: normal inspection Neurologic/Psychiatric: no motor/sensory deficits, alert, normal mood/affect, oriented x 3 Skin: normal color, warm/dry; No rash Progress/Results/Core Measures Results/Orders Lab Results Laboratory Tests Test 03/19/18 14:58 03/19/18 15:16 Range/Units White Blood Count 10.9 4.3-11.0 10^3/uL Red Blood Count 5.29 4.35-5.85 10^6/uL Hemoglobin 15.0 11.5-16.0 G/DL Hematocrit 44 35-52 % Mean Corpuscular Volume 83 80-99 FL Mean Corpuscular Hemoglobin 28 25-34 PG Mean Corpuscular Hemoglobin Concent 34 32-36 G/DL Red Cell Distribution Width 13.1 10.0-14.5 % Platelet Count 390 130-400 10^3/uL Mean Platelet Volume 9.7 7.4-10.4 FL Neutrophils (%) (Auto) 61 42-75 % Lymphocytes (%) (Auto) 31 12-44 % Monocytes (%) (Auto) 6 0-12 % Eosinophils (%) (Auto) 2 0-10 % Basophils (%) (Auto) 0 0-10 % Neutrophils # (Auto) 6.6 1.8-7.8 X 10^3 Lymphocytes # (Auto) 3.4 1.0-4.0 X 10^3 Monocytes # (Auto) 0.7 0.0-1.0 X 10^3 Eosinophils # (Auto) 0.2 0.0-0.3 10^3/uL Basophils # (Auto) 0.0 0.0-0.1 10^3/uL Sodium Level 140 135-145 MMOL/L Potassium Level 3.5 L 3.6-5.0 MMOL/L Chloride Level 102 98-107 MMOL/L Carbon Dioxide Level 29 21-32 MMOL/L Anion Gap 9 5-14 MMOL/L Blood Urea Nitrogen 7 7-18 MG/DL Creatinine 0.70 0.60-1.30 MG/DL Estimat Glomerular Filtration Rate > 60 BUN/Creatinine Ratio 10 Glucose Level 96 70-105 MG/DL Calcium Level 9.7 8.5-10.1 MG/DL Corrected Calcium 9.3 8.5-10.1 MG/DL Total Bilirubin 0.4 0.1-1.0 MG/DL Aspartate Amino Transf (AST/SGOT) 25 5-34 U/L Alanine Aminotransferase (ALT/SGPT) 28 0-55 U/L Alkaline Phosphatase 95 40-136 U/L Total Protein 8.3 H 6.4-8.2 GM/DL Albumin 4.5 3.2-4.5 GM/DL Lipase 12 8-78 U/L Urine Color YELLOW Urine Clarity CLEAR Urine pH 7 5-9 Urine Specific [place] 1.015 L 1.016-1.022 Urine Protein 2+ H NEGATIVE Urine Glucose (UA) NEGATIVE NEGATIVE Urine Ketones 1+ H NEGATIVE Urine Nitrite NEGATIVE NEGATIVE Urine Bilirubin NEGATIVE NEGATIVE Urine Urobilinogen 1 NORMAL MG/DL Urine Leukocyte Esterase 2+ H NEGATIVE Urine RBC (Auto) 1+ H NEGATIVE Urine RBC RARE /HPF Urine WBC 10-25 H /HPF Urine Squamous Epithelial Cells 10-25 H /HPF Urine Crystals NONE /LPF Urine Bacteria FEW H /HPF Urine Casts NONE /LPF Urine Mucus MODERATE H /LPF Urine Culture Indicated YES Urine Test NEGATIVE NEGATIVE My Orders Orders - HOLLY ALVAREZ MD Cbc With Automated Diff (03/19/18 14:58) Comprehensive Metabolic Panel (03/19/18 14:58) Lipase (03/19/18 14:58) Ua Culture If Indicated (03/19/18 14:58) Ns Iv 1000 Ml (Sodium Chloride 0.9%) (03/19/18 15:00) Fentanyl Injection (Sublimaze Injection (03/19/18 15:00) Ondansetron Injection (Zofran Injectio (03/19/18 15:00) Ct Abd/Pelv W (Appendicitis) (03/19/18 14:58) Iohexol Injection (Omnipaque 350 Mg/Ml 1 (03/19/18 15:15) Contrast Received (Contrast Received) (03/19/18 15:15) Sodium Chloride Flush (Catheter Flush Sy (03/19/18 15:15) Ns (Ivpb) (Sodium Chloride 0.9% Ivpb Bag (03/19/18 15:15) Urine Culture (03/19/18 15:16) Ns Iv 1000 Ml (Sodium Chloride 0.9%) (03/19/18 17:00) Ciprofloxacin Iv 400mg/200ml (Cipro Iv S (03/19/18 17:00) Hcg,Qualitative Urine (03/19/18 17:44) Medications Given in ED Current Medications Medications Dose Ordered Sig/Luz Elena Route Start Time Stop Time Status Last Admin Dose Admin Ciprofloxacin/ Dextrose 200 ml @ 200 mls/hr ONCE ONCE IV 03/19/18 17:00 03/19/18 17:59 DC 03/19/18 17:20 200 MLS/HR Fentanyl Citrate 50 mcg ONCE ONCE IVP 03/19/18 15:00 03/19/18 15:02 DC 03/19/18 15:14 50 MCG Iohexol 100 ml ONCE ONCE IV 03/19/18 15:15 03/19/18 15:16 DC 03/19/18 18:35 100 ML Ondansetron HCl 4 mg ONCE ONCE IVP 03/19/18 15:00 03/19/18 15:02 DC 03/19/18 15:14 4 MG Promethazine HCl 25 mg ONCE ONCE IVP 03/19/18 16:30 03/19/18 16:31 DC 03/19/18 16:36 25 MG Sodium Chloride 10 ml NEEDED PRN IV 03/19/18 15:15 03/19/18 18:35 10 ML Sodium Chloride 100 ml ONCE ONCE IV 03/19/18 15:15 03/19/18 15:16 DC 03/19/18 18:35 100 ML Vital Signs/I&O 03/19/18 14:56 Temp 98.7 Pulse 73 Resp 18 B/P (MAP) 124/82 (96) Pulse Ox 99 O2 Delivery Room Air Progress Progress Note : Time: 18:40 Progress Note Patient had laboratory evidence of acute UTI. She received 400 mg of Cipro IV. Patient's white count was not significantly elevated. Her urine test was negative. Patient's pain was much improved with fentanyl and her nausea was relieved with Zofran and subsequently Phenergan. [address] demonstrated ladder wall thickening but no evidence of other acute pathology. All treat the patient was Cipro and Zofran at home for her urinary tract infection and nausea. I will ask that she follow up with [facility] on Thursday. I invited her to return to the emergency department she had any further problems or questions. Departure Impression Primary Impression: Urinary tract infection Qualified Codes: N30.00 - Acute cystitis without hematuria Disposition: HOME, SELF-CARE Condition: Improved Departure-Patient Inst. Decision time for Depature: 18:55 Referrals: HUNTER REED DO (PCP/Family) Primary Care Physician Patient Instructions: Urinary Tract Infection, Adult (DC) Add. Discharge Instructions: Cipro and Zofran as prescribed. Close follow-up with [facility] Thursday. Return if any problems or questions. HOLLY ALVAREZ MD Mar 19, 2018 15:08
[2018-03-19 15:13] LABS: BASOPHILS % (AUTO) 0 % (0-10); EOSINOPHILS # (AUTO) 0.2 10^3/uL (0.0-0.3); EOSINOPHILS % (AUTO) 2 % (0-10); HEMATOCRIT 44 % (35-52); LYMPHOCYTES # (AUTO) 3.4 X 10^3 (1.0-4.0); LYMPHOCYTES % (AUTO) 31 % (12-44); MEAN CORPUSCULAR HEMOGLOBIN 28 PG (25-34); MEAN CORPUSCULAR HGB CONC 34 G/DL (32-36); MEAN CORPUSCULAR VOLUME 83 FL (80-99); MEAN PLATELET VOLUME 9.7 FL (7.4-10.4); MONOCYTES # (AUTO) 0.7 X 10^3 (0.0-1.0); MONOCYTES % (AUTO) 6 % (0-12); NEUTROPHILS # (AUTO) 6.6 X 10^3 (1.8-7.8); NEUTROPHILS % (AUTO) 61 % (42-75); PLATELET COUNT 390 10^3/uL (130-400); RED BLOOD COUNT 5.29 10^6/uL (4.35-5.85); RED CELL DISTRIBUTION WIDTH 13.1 % (10.0-14.5); WHITE BLOOD COUNT 10.9 10^3/uL (4.3-11.0)
[2018-03-19] MEDS ORDERED: CATHETER FLUSH 10 ML SYR IV PRN (15:15)
[2018-03-19] MEDS ORDERED: RECEIVED CONTRAST (Hold Metformin) IV SCH (15:15)
[2018-03-19] MEDS ORDERED: IOHEXOL 350 MG/ML 100 ML (OMNIPAQUE 350) VIAL IV ONE (15:15)
[2018-03-19] MEDS ORDERED: NS 100 ML (IVPB) BAG IV ONE (15:15)
[2018-03-19 15:30] LABS: BILIRUBIN,URINE NEGATIVE (NEGATIVE); CLARITY,URINE CLEAR; COLOR,URINE YELLOW; GLUCOSE, URINE (UA) NEGATIVE (NEGATIVE); KETONES,URINE 1+ (NEGATIVE); LEUKOCYTE ESTERASE ,URINE 2+ (NEGATIVE); NITRITE,URINE NEGATIVE (NEGATIVE); PH,URINE 7 (5-9); PROTEIN,URINE 2+ (NEGATIVE); UROBILINOGEN,URINE 1 MG/DL (NORMAL)
[2018-03-19 15:33] LABS: ALANINE AMINOTRANSFERASE 28 U/L (0-55); ALBUMIN 4.5 GM/DL (3.2-4.5); ALKALINE PHOSPHATASE 95 U/L (40-136); BILIRUBIN,TOTAL 0.4 MG/DL (0.1-1.0); BUN/CREATININE RATIO 10; CALCIUM 9.7 MG/DL (8.5-10.1); CARBON DIOXIDE 29 MMOL/L (21-32); CHLORIDE 102 MMOL/L (98-107); GFR ESTIMATED > 60; GLUCOSE 96 MG/DL (70-105); LIPASE 12 U/L (8-78); POTASSIUM 3.5 MMOL/L (3.6-5.0); SODIUM 140 MMOL/L (135-145); TOTAL PROTEIN 8.3 GM/DL (6.4-8.2)
[2018-03-19 15:43] LABS: BACTERIA,URINE FEW /HPF; RBC,URINE RARE /HPF
[2018-03-19] MEDS ORDERED: PROMETHAZINE INJ 25 MG/ML (PHENERGAN) AMP IVP ONE (16:30)
[2018-03-19] MEDS ORDERED: CIPROFLOXACIN IV 400MG/200ML 200 ML IV ONE (17:00)
--- NOTE | 2018-03-19 18:51 | Diagnostic Imaging Report ---
PROCEDURE: CT abdomen and pelvis with contrast, rule out appendicitis. TECHNIQUE: Multiple contiguous axial images were obtained through the abdomen and pelvis after the administration of intravenous contrast. INDICATION: Abdominal pain, nausea, vomiting. COMPARISON: 12/02/2017. FINDINGS: Lung bases are clear. Gallbladder, solid organs, vascular structures and bowel are stable. Benign renal cysts are seen on the right. There is no hydronephrosis. No free air, free fluid or inflammation is seen. The appendix is normal. There is no mesenteric or retroperitoneal lymphadenopathy. IUD is seen within the uterus. There is some slight thickening of the urinary bladder wall which could be a cystitis. Please correlate with urinalysis. There is no hernia. Osseous structures are age-appropriate. IMPRESSION: 1. Questionable urinary bladder thickening, possibly cystitis. Please correlate with urinalysis. 2. IUD within the uterus. 3. Normal appendix. 4. No additional acute abnormality identified. Dictated by: Dictated on workstation # [id number]
[2018-03-19 19:05] VITALS: BP 105/65
== END 2018-03-19 19:05 | disposition home or self-care (01) ==
LOC: EDUNIT# 14:49 → ER 14:50
DX: N39.0 Urinary tract infection, site not specified (principal); Z98.890 Other specified postprocedural states
CPT/HCPCS: 36415; 74177; 80053; 81000; 83690; 84703; 85025; 87088

== ENCOUNTER 2018-07-02 14:43 | Emergency (ER) | payer SELFPAY ==
[~2018-07-02] VITALS: Ht 160 cm; Wt 68.0 kg
--- NOTE | 2018-07-02 15:05 | ED Abdominal Pain ---
General Chief Complaint: - Urinary Stated Complaint: ABD PAIN Source of Information: Patient Exam Limitations: No Limitations History of Present Illness Date Seen by Provider: July 02, 2018 Time Seen by Provider: 15:03 Initial Comments To ER per private vehicle from [facility] with reports of periumbilical/ suprapubic abdominal pain that radiates through to her back. She has had nausea but no vomiting. No bowel changes. No dysuria. Her only abdominal surgical history is of a 1. The symptoms of pain and nausea began last night. Timing/Duration: 12-24 Hours Severity/Quality: Moderate Location: Suprapubic Radiation: No Radiation Activities at Onset: None Associated Symptoms: Nausea/Vomiting Allergies and Home Medications Allergies Coded Allergies: No Known Drug Allergies (Unverified , 05/18/15) Home Medications Docusate Sodium 100 Mg Capsule, 100 MG PO BID PRN for CONSTIPATION-1ST LINE Prescribed by: JANNETTE HAGEN on 03/15/17 1002 Hydrocodone Bit/Acetaminophen 1 Tab Tab, 1-2 TAB PO Q4H PRN for PAIN-MODERATE Prescribed by: JANNETTE HAGEN on 03/15/17 1002 Ibuprofen 600 Mg Tablet, 600 MG PO Q6H Prescribed by: JANNETTE HAGEN on 03/15/17 1002 Nitrofurantoin Monohyd/M-Cryst 100 Mg Capsule, 100 MG PO BID Prescribed by: AMELIA LO on 12/02/17 1018 Ondansetron 4 Mg Tab.rapdis, 4 MG PO Q4H Prescribed by: AMELIA LO on 12/02/17 1018 Vit #76/Iron,Carb/FA 1 Each Tablet, 1 EACH PO DAILY, (Reported) Patient Home Medication List Home Medication List Reviewed: Yes Review of Systems Review of Systems Constitutional: see HPI EENTM: No Symptoms Reported Respiratory: No Symptoms Reported Cardiovascular: No Symptoms Reported Gastrointestinal: See HPI, Abdominal Pain, Nausea Genitourinary: No Symptoms Reported Musculoskeletal: no symptoms reported Skin: no symptoms reported Psychiatric/Neurological: No Symptoms Reported Endocrine: No Symptoms Reported Past Eaghuwz-Dtafub-Adfpib Hx Patient Social History 2nd Hand Smoke Exposure: No Recent Foreign Travel: No Contact w/Someone Who Travel: No Recent Hopitalizations: No Immunizations Up To Date Date of Influenza Vaccine: Dec 29, 2016 Seasonal Allergies Seasonal Allergies: No Past Medical History Surgeries: No Respiratory: No Cardiac: No Neurological: No Reproductive Disorders: No Sexually Transmitted Disease: No HIV/AIDS: No Gastrointestinal: No Musculoskeletal: No Endocrine: No Cancer: No Psychosocial: No Integumentary: No Blood Disorders: No Adverse Reaction/Blood Tranf: No Family Medical History Patient reports no known family medical history. No Pertinent Family Hx Physical Exam Vital Signs Vital Signs - First Documented 07/02/18 14:58 Temp 98.1 Pulse 75 Resp 16 B/P (MAP) 117/68 (84) Capillary Refill : Height/Weight/BMI Height: 5'2.00" Weight: 132lbs. 0oz. [id number]; 28.3 BMI Method:Stated General Appearance: WD/WN, no apparent distress Respiratory: no respiratory distress, no accessory muscle use Gastrointestinal: normal bowel sounds, soft, tenderness Extremities: normal range of motion, non-tender Neurologic/Psychiatric: alert, normal mood/affect, oriented x 3 Skin: normal color, warm/dry Progress/Results/Core Measures Results/Orders Lab Results Laboratory Tests Test 07/02/18 15:00 07/02/18 15:37 Range/Units Urine Color YELLOW Urine Clarity CLEAR Urine pH 6 5-9 Urine Specific Welsh 1.015 L 1.016-1.022 Urine Protein NEGATIVE NEGATIVE Urine Glucose (UA) NEGATIVE NEGATIVE Urine Ketones 1+ H NEGATIVE Urine Nitrite NEGATIVE NEGATIVE Urine Bilirubin NEGATIVE NEGATIVE Urine Urobilinogen NORMAL NORMAL MG/DL Urine Leukocyte Esterase 1+ H NEGATIVE Urine RBC (Auto) NEGATIVE NEGATIVE Urine RBC NONE /HPF Urine WBC 2-5 /HPF Urine Squamous Epithelial Cells 5-10 /HPF Urine Crystals NONE /LPF Urine Bacteria NEGATIVE /HPF Urine Casts NONE /LPF Urine Mucus SMALL H /LPF Urine Culture Indicated NO Urine Test NEGATIVE NEGATIVE White Blood Count 10.1 4.3-11.0 10^3/uL Red Blood Count 4.74 4.35-5.85 10^6/uL Hemoglobin 13.4 11.5-16.0 G/DL Hematocrit 40 35-52 % Mean Corpuscular Volume 84 80-99 FL Mean Corpuscular Hemoglobin 28 25-34 PG Mean Corpuscular Hemoglobin Concent 34 32-36 G/DL Red Cell Distribution Width 12.6 10.0-14.5 % Platelet Count 332 130-400 10^3/uL Mean Platelet Volume 9.8 7.4-10.4 FL Neutrophils (%) (Auto) 61 42-75 % Lymphocytes (%) (Auto) 29 12-44 % Monocytes (%) (Auto) 6 0-12 % Eosinophils (%) (Auto) 4 0-10 % Basophils (%) (Auto) 0 0-10 % Neutrophils # (Auto) 6.2 1.8-7.8 X 10^3 Lymphocytes # (Auto) 2.9 1.0-4.0 X 10^3 Monocytes # (Auto) 0.6 0.0-1.0 X 10^3 Eosinophils # (Auto) 0.5 H 0.0-0.3 10^3/uL Basophils # (Auto) 0.0 0.0-0.1 10^3/uL Sodium Level 137 135-145 MMOL/L Potassium Level 3.6 3.6-5.0 MMOL/L Chloride Level 106 98-107 MMOL/L Carbon Dioxide Level 22 21-32 MMOL/L Anion Gap 9 5-14 MMOL/L Blood Urea Nitrogen 7 7-18 MG/DL Creatinine 0.64 0.60-1.30 MG/DL Estimat Glomerular Filtration Rate > 60 BUN/Creatinine Ratio 11 Glucose Level 80 70-105 MG/DL Calcium Level 9.1 8.5-10.1 MG/DL Corrected Calcium 9.1 8.5-10.1 MG/DL Total Bilirubin 0.5 0.1-1.0 MG/DL Aspartate Amino Transf (AST/SGOT) 19 5-34 U/L Alanine Aminotransferase (ALT/SGPT) 27 0-55 U/L Alkaline Phosphatase 80 40-136 U/L Total Protein 7.2 6.4-8.2 GM/DL Albumin 4.0 3.2-4.5 GM/DL My Orders Orders - NEYMAR LANDAVERDE APRN Ua Culture If Indicated (07/02/18 14:57) Cbc With Automated Diff (07/02/18 14:57) Comprehensive Metabolic Panel (07/02/18 14:57) Ed Iv/Invasive Line Start (07/02/18 14:57) Ct Abd/Pelv W (Appendicitis) (07/02/18 15:02) Ondansetron Injection (Zofran Injectio (07/02/18 15:15) Fentanyl Injection (Sublimaze Injection (07/02/18 15:15) Iohexol Injection (Omnipaque 350 Mg/Ml 1 (07/02/18 15:15) Received Contrast (Hold Metformin- Contr (07/02/18 15:15) Hcg,Qualitative Urine (07/02/18 15:29) Ketorolac Injection (Toradol Injection) (07/02/18 16:30) Wet Prep (07/02/18 16:24) Neisseria Gonorrhea Swab (07/02/18 16:24) Shannan Prep (07/02/18 16:24) Chlamydia Trachomatis Swab (07/02/18 16:24) Medications Given in ED Current Medications Medications Dose Ordered Sig/Luz Elena Route Start Time Stop Time Status Last Admin Dose Admin Fentanyl Citrate 50 mcg ONCE ONCE IVP 07/02/18 15:15 07/02/18 15:16 DC 07/02/18 15:27 50 MCG Iohexol 100 ml ONCE ONCE IV 07/02/18 15:15 07/02/18 15:16 DC 07/02/18 16:03 100 ML Ondansetron HCl 8 mg ONCE ONCE IVP 07/02/18 15:15 07/02/18 15:16 DC 07/02/18 15:23 8 MG Vital Signs/I&O 07/02/18 14:58 Temp 98.1 Pulse 75 Resp 16 B/P (MAP) 117/68 (84) Departure Communication (Admissions) Pelvic exam done with GIORGIO Flood student support advisor at the bedside accompanying me. There is no cervical motion tenderness, minimal whitish discharge from the cervix. Impression Primary Impression: Pelvic pain Disposition: 01 HOME, SELF-CARE Condition: Stable Departure-Patient Inst. Decision time for Depature: 16:41 [facility]: [facility] (PCP/Family) Primary Care Physician Patient Instructions: Acute Pelvic Pain, Ovarian Cyst (DC) Add. Discharge Instructions: 1. Return to the emergency room for any concerns such as worsening pain lightheadedness or fevers. 2. Follow-up with your doctor next week 3. All discharge instructions reviewed with patient and/or family. Voiced understanding. Scripts Hydrocodone Bit/Acetaminophen (Hydrocodone/Acetaminophen 5/325mg Tablet) 1 Tab Tab 1 EACH PO Q4-6HR PRN for PAIN-MODERATE MDD 10 for 3 Days, #14 TAB Prov: NEYMAR LANDAVERDE ANESTHESIOLOGY MEDICAL DOCTOR 07/02/18 NEYMAR LANDAVERDE ANESTHESIOLOGY MEDICAL DOCTOR July 02, 2018 15:04
[2018-07-02] MEDS ORDERED: ONDANSETRON 4 MG/2 ML (SDV) Z0FRAN IVP ONE (15:15)
[2018-07-02] MEDS ORDERED: fentaNYL INJECTION 100 MCG/2 ML AMP IVP ONE (15:15)
[2018-07-02] MEDS ORDERED: IOHEXOL 350 MG/ML 100 ML (OMNIPAQUE 350) VIAL IV ONE (15:15)
[2018-07-02] MEDS ORDERED: HOLD METFORMIN - RECEIVED CONTRAST 20 ML VIAL IV SCH (15:15)
[2018-07-02 15:17] LABS: BILIRUBIN,URINE NEGATIVE (NEGATIVE); GLUCOSE, URINE (UA) NEGATIVE (NEGATIVE); KETONES,URINE 1+ (NEGATIVE); LEUKOCYTE ESTERASE ,URINE 1+ (NEGATIVE); NITRITE,URINE NEGATIVE (NEGATIVE); PH,URINE 6 (5-9); PROTEIN,URINE NEGATIVE (NEGATIVE); UROBILINOGEN,URINE NORMAL (NORMAL)
[2018-07-02 15:40] LABS: BACTERIA,URINE NEGATIVE /HPF; CLARITY,URINE CLEAR; COLOR,URINE YELLOW
[2018-07-02 15:44] LABS: BASOPHILS % (AUTO) 0 % (0-10); EOSINOPHILS # (AUTO) 0.5 10^3/uL (0.0-0.3); EOSINOPHILS % (AUTO) 4 % (0-10); HEMATOCRIT 40 % (35-52); HEMOGLOBIN 13.4 G/DL (11.5-16.0); LYMPHOCYTES # (AUTO) 2.9 X 10^3 (1.0-4.0); LYMPHOCYTES % (AUTO) 29 % (12-44); MEAN CORPUSCULAR HEMOGLOBIN 28 PG (25-34); MEAN CORPUSCULAR HGB CONC 34 G/DL (32-36); MEAN CORPUSCULAR VOLUME 84 FL (80-99); MEAN PLATELET VOLUME 9.8 FL (7.4-10.4); MONOCYTES # (AUTO) 0.6 X 10^3 (0.0-1.0); MONOCYTES % (AUTO) 6 % (0-12); NEUTROPHILS # (AUTO) 6.2 X 10^3 (1.8-7.8); NEUTROPHILS % (AUTO) 61 % (42-75); PLATELET COUNT 332 10^3/uL (130-400); RED CELL DISTRIBUTION WIDTH 12.6 % (10.0-14.5); WHITE BLOOD COUNT 10.1 10^3/uL (4.3-11.0)
[2018-07-02 16:05] LABS: ALANINE AMINOTRANSFERASE 27 U/L (0-55); ALKALINE PHOSPHATASE 80 U/L (40-136); BILIRUBIN,TOTAL 0.5 MG/DL (0.1-1.0); BUN/CREATININE RATIO 11; CALCIUM 9.1 MG/DL (8.5-10.1); CARBON DIOXIDE 22 MMOL/L (21-32); CHLORIDE 106 MMOL/L (98-107); CREATININE SERUM 0.64 MG/DL (0.60-1.30); GFR ESTIMATED > 60; GLUCOSE 80 MG/DL (70-105); POTASSIUM 3.6 MMOL/L (3.6-5.0); SODIUM 137 MMOL/L (135-145); TOTAL PROTEIN 7.2 GM/DL (6.4-8.2)
--- NOTE | 2018-07-02 16:26 | Diagnostic Imaging Report ---
PROCEDURE: CT abdomen and pelvis with contrast, rule out appendicitis. TECHNIQUE: Multiple contiguous axial images were obtained through the abdomen and pelvis after the administration of intravenous contrast. DATE: July 02, 2018. COMPARISON: CT abdomen and pelvis, March 19, 2018. INDICATION: 33-year-old female, abdominal pain for three days. FINDINGS: The visualized portions of the lungs are clear. The heart is not enlarged. There is no identified pericardial effusion. The liver is normal in size and contour. There is no identified liver lesion. The main, right and left portal veins are patent. The gallbladder is unremarkable. There is no intrahepatic or extrahepatic bile duct dilation. The main pancreatic duct is not abnormally dilated. Unremarkable appearance of the pancreatic parenchyma. The spleen is normal in size. The adrenal glands are unremarkable. There are numerous low-attenuation right renal lesions with internal attenuation values consistent with benign cysts. The right renal parenchyma is unremarkable in appearance. The urinary collecting systems are not distended. There is no identified renal or ureteral stone. The urinary bladder is underdistended. There is mild diffuse urinary bladder wall thickening which does appear to be prominent for degree of underdistention. This is similar to prior exam. This may relate to chronic outlet obstruction and/or cystitis. The intrauterine contraceptive device appears to be within the midline uterus, most likely in the endometrial cavity. The uterus is heterogeneous in attenuation which is nonspecific. There is a low-attenuation right adnexal mass on axial image 105, measuring 2.8 cm in size most likely relating to an ovarian cyst or follicle. This is new since comparison exam. The appendix is best seen on axial image 101 and adjacent sequential images. There is no evidence of acute appendicitis. The appendix is normal in appearance. There is a very small fat-containing umbilical hernia. There is no free intraperitoneal air. There is no drainable fluid collection. There is no free pelvic fluid. There is no identified abnormally enlarged lymph node in the abdomen or pelvis which specifically meets CT size criteria for adenopathy. There is no identified acute bony abnormality. Subcentimeter sclerotic focus in the right femoral head most likely relates to a benign bone island. IMPRESSION: CT abdomen and pelvis: 1. Mild diffuse urinary bladder wall thickening which may relate to cystitis and/or chronic outlet obstruction. Appearance is similar to prior CT. 2. No evidence of acute appendicitis. 3. Multiple right renal cysts. Dictated by: Dictated on workstation # [id number]
[2018-07-02] MEDS ORDERED: KETOROLAC 30 MG/ML VIAL IVP ONE (16:30)
[2018-07-02] MEDS ORDERED: ACHD5005 PO (16:42)
[2018-07-02 17:18] VITALS: BP 110/60
== END 2018-07-02 17:22 | disposition home or self-care (01) ==
LOC: EDUNIT# 14:43 → ER 14:45
DX: R10.2 Pelvic and perineal pain (principal)
CPT/HCPCS: 36415; 74177; 80053; 81000; 84703; 85025; 87210; 87491; 87591

== ENCOUNTER 2018-07-05 15:44 | Emergency (ER) | payer SELFPAY ==
[~2018-07-05] VITALS: Ht 149.9 cm; Wt 60.8 kg
--- NOTE | 2018-07-05 16:05 | NUR ---
LANGUAGE LINE USED TO COMMUNICATE WITH PT. PT STANDING MOVING SIDE TO SIDE AT TRIAGE, UNABLE TO SIT STILL
--- NOTE | 2018-07-05 16:06 | ED Abdominal Pain ---
General Chief Complaint: Abdominal/GI Problems Stated Complaint: STOMACH PAIN WORSE Source of Information: Patient Exam Limitations: No Limitations History of Present Illness Date Seen by Provider: July 05, 2018 Time Seen by Provider: 16:04 Initial Comments To ER per private vehicle with reports of having worsening suprapubic lower abdominal pain that is midline. No dysuria or bowel changes. She has had nausea and vomiting a few times. She's had chills but no measured fever. She was seen here 3 days ago for the same. History of present illness review of systems on exam done with the help of phone interpreters as she is Congolese-speaking Timing/Duration: 3-4 Days Severity/Quality: Severe Location: Periumbilical, Suprapubic Radiation: No Radiation Activities at Onset: None Allergies and Home Medications Allergies Coded Allergies: No Known Drug Allergies (Unverified , 05/18/15) Home Medications Docusate Sodium 100 Mg Capsule, 100 MG PO BID PRN for CONSTIPATION-1ST LINE Prescribed by: JANNETTE HAGEN on 03/15/17 1002 Hydrocodone Bit/Acetaminophen 1 Tab Tab, 1-2 TAB PO Q4H PRN for PAIN-MODERATE Prescribed by: JANNETTE HAGEN on 03/15/17 1002 Hydrocodone Bit/Acetaminophen 1 Tab Tab, 1 EACH PO Q4-6HR PRN for PAIN-MODERATE Prescribed by: NEYMAR LANDAVERDE on 07/02/18 1642 Ibuprofen 600 Mg Tablet, 600 MG PO Q6H Prescribed by: JANNETTE HAGEN on 03/15/17 1002 Nitrofurantoin Monohyd/M-Cryst 100 Mg Capsule, 100 MG PO BID Prescribed by: AMELIA LO on 12/02/17 1018 Ondansetron 4 Mg Tab.rapdis, 4 MG PO Q4H Prescribed by: AMELIA LO on 12/02/17 1018 Vit #76/Iron,Carb/FA 1 Each Tablet, 1 EACH PO DAILY, (Reported) Patient Home Medication List Home Medication List Reviewed: Yes Review of Systems Review of Systems Constitutional: see HPI EENTM: No Symptoms Reported Respiratory: No Symptoms Reported Cardiovascular: No Symptoms Reported Gastrointestinal: See HPI, Abdominal Pain; Denies Constipated, Denies Diarrhea ; Nausea Genitourinary: No Symptoms Reported Musculoskeletal: no symptoms reported Skin: no symptoms reported Psychiatric/Neurological: No Symptoms Reported Endocrine: No Symptoms Reported Past Vbrjkxo-Iekowe-Hotklf Hx Patient Social History 2nd Hand Smoke Exposure: No Recent Foreign Travel: No Contact w/Someone Who Travel: No Recent Hopitalizations: No Immunizations Up To Date Date of Influenza Vaccine: Dec 29, 2016 Seasonal Allergies Seasonal Allergies: No Past Medical History Surgeries: No Respiratory: No Cardiac: No Neurological: No Reproductive Disorders: No Sexually Transmitted Disease: No HIV/AIDS: No Gastrointestinal: No Musculoskeletal: No Endocrine: No Cancer: No Psychosocial: No Integumentary: No Blood Disorders: No Adverse Reaction/Blood Tranf: No Family Medical History Patient reports no known family medical history. No Pertinent Family Hx Physical Exam Vital Signs Vital Signs - First Documented 07/05/18 15:57 Temp 98.6 Pulse 85 Resp 22 B/P (MAP) 113/85 (94) Pulse Ox 98 O2 Delivery Room Air Capillary Refill : Height/Weight/BMI Height: 5'3.00" Weight: 150lbs. 0oz. 68.364284oo; 28.3 BMI Method:Estimated General Appearance: WD/WN, moderate distress HEENT: PERRL/EOMI, normal ENT inspection Respiratory: no respiratory distress, no accessory muscle use Gastrointestinal: normal bowel sounds, soft, tenderness Extremities: normal range of motion, non-tender Neurologic/Psychiatric: alert, normal mood/affect, oriented x 3 Skin: normal color, warm/dry Progress/Results/Core Measures Results/Orders Lab Results Laboratory Tests Test 07/05/18 16:00 Range/Units White Blood Count 10.4 4.3-11.0 10^3/uL Red Blood Count 4.84 4.35-5.85 10^6/uL Hemoglobin 13.7 11.5-16.0 G/DL Hematocrit 41 35-52 % Mean Corpuscular Volume 85 80-99 FL Mean Corpuscular Hemoglobin 28 25-34 PG Mean Corpuscular Hemoglobin Concent 34 32-36 G/DL Red Cell Distribution Width 12.9 10.0-14.5 % Platelet Count 357 130-400 10^3/uL Mean Platelet Volume 10.0 7.4-10.4 FL Neutrophils (%) (Auto) 62 42-75 % Lymphocytes (%) (Auto) 28 12-44 % Monocytes (%) (Auto) 6 0-12 % Eosinophils (%) (Auto) 4 0-10 % Basophils (%) (Auto) 0 0-10 % Neutrophils # (Auto) 6.4 1.8-7.8 X 10^3 Lymphocytes # (Auto) 2.9 1.0-4.0 X 10^3 Monocytes # (Auto) 0.6 0.0-1.0 X 10^3 Eosinophils # (Auto) 0.5 H 0.0-0.3 10^3/uL Basophils # (Auto) 0.0 0.0-0.1 10^3/uL Sodium Level 138 135-145 MMOL/L Potassium Level 3.7 3.6-5.0 MMOL/L Chloride Level 105 98-107 MMOL/L Carbon Dioxide Level 24 21-32 MMOL/L Anion Gap 9 5-14 MMOL/L Blood Urea Nitrogen 11 7-18 MG/DL Creatinine 0.67 0.60-1.30 MG/DL Estimat Glomerular Filtration Rate > 60 BUN/Creatinine Ratio 16 Glucose Level 81 70-105 MG/DL Calcium Level 9.5 8.5-10.1 MG/DL Corrected Calcium 9.3 8.5-10.1 MG/DL Total Bilirubin 0.4 0.1-1.0 MG/DL Aspartate Amino Transf (AST/SGOT) 20 5-34 U/L Alanine Aminotransferase (ALT/SGPT) 29 0-55 U/L Alkaline Phosphatase 73 40-136 U/L Total Protein 7.5 6.4-8.2 GM/DL Albumin 4.2 3.2-4.5 GM/DL My Orders Orders - NEYMAR LANDAVERDE APRN Cbc With Automated Diff (07/05/18 15:49) Comprehensive Metabolic Panel (07/05/18 15:49) Us Non Ob Pelvis Comp/Transvag (07/05/18 15:49) Ketorolac Injection (Toradol Injection) (07/05/18 16:15) Ondansetron Injection (Zofran Injectio (07/05/18 16:15) Hydromorphone Injection (Dilaudid Inject (07/05/18 16:15) Hydromorphone Injection (Dilaudid Inject (07/05/18 17:00) Medications Given in ED Current Medications Medications Dose Ordered Sig/Luz Elena Route Start Time Stop Time Status Last Admin Dose Admin Hydromorphone HCl 0.5 mg ONCE ONCE IV 07/05/18 16:15 07/05/18 16:16 DC 07/05/18 16:47 0.5 MG Ketorolac Tromethamine 30 mg ONCE ONCE IVP 07/05/18 16:15 07/05/18 16:16 DC 07/05/18 16:47 30 MG Ondansetron HCl 4 mg ONCE ONCE IVP 07/05/18 16:15 07/05/18 16:16 DC 07/05/18 16:47 4 MG Vital Signs/I&O 07/05/18 07/05/18 07/05/18 15:57 16:47 16:47 Temp 98.6 98.6 98.6 Pulse 85 Resp 22 B/P (MAP) 113/85 (94) Pulse Ox 98 O2 Delivery Room Air Diagnostic Imaging Diagonstic Imaging: Ultrasound Comments NAME: JAGDISH CR MED REC#: [id number] PT STATUS: REG ER : 1985 PHYSICIAN: NEYMAR LANDAVERDE APRN ADMIT DATE: 07/05/18/ER Draft Date of Exam:07/05/18 US NON OB PELVIS COMP/TRANSVAG Clinical indication: Patient with stomach pain. Exam: Transabdominal and transvaginal ultrasound of the pelvis. Comparison: CT scan of the abdomen and pelvis performed with contrast dated 07/02/2018. Findings: The uterus has normal echogenicity and configuration. IUD is noted with some component overlying the low uterus and possibly cervix. The uterus measures 7.9 cm x 4.4 cm x 5.2 cm. Endometrium measures 2 mm. There is a 5.0 cm x 4.4 cm x 4.2 cm right adnexal mass which demonstrates no central Doppler flow. There is increased echogenicity seen within it. Bilateral ovaries are not visualized on this exam. There is no free fluid in the pelvis. Impression: 1: There is a 5.0 cm lesion in the right adnexal area which measures 5.0 cm in greatest axial dimension. This most correlates with the cystic structure seen on the comparison CT scan. Considerations may include a hemorrhagic cyst or an endometrioma. Followup ultrasound of the pelvis in 6 weeks is suggested for further evaluation. 2: The ovaries are unable to be visualized on this exam. 3: IUD is possibly in the lower uterus/cervical region. Patient was noted to have IUD in good position within the fundus on the comparison CT scan. Dictated on workstation # [id number] Dict: 07/05/18 1649 Trans: 07/05/18 1657 [facility] [id number] Interpreted by: COLLEEN WILLSON MD Electronically signed by: Departure Communication (Admissions) [id number] discussed the case with Dr. Rodriguez just to notify him should she come back in with a syncopal event if this were to rupture and continued to hemorrhage into the peritoneal cavity. I did this because 2 days ago the cyst measured 2.[address] so it has essentially doubled in size and 48 hours. In the meantime we'll treat with stronger pain medication. Discussed with Dr. Gramajo, he agrees with plan of care. Impression Primary Impression: Hemorrhagic cyst of right ovary Disposition: HOME, SELF-CARE Condition: Stable Departure-Patient Inst. Decision time for Depature: 17:09 Referrals: [facility] [place] Primary Care Physician JANNETTE HAGEN DENNIS G MD SEALS, LARRY E DO Patient Instructions: Ovarian Cyst (DC) Add. Discharge Instructions: 1. Call a health promotion officer tomorrow to make an appointment to be seen this week. Return to the emergency room if you become lightheaded or generally weak or any other concerns. All discharge instructions reviewed with patient and/or family. Voiced understanding. Scripts Oxycodone HCl/Acetaminophen (Percocet 7.5-325 mg Tablet) 1 Each Tablet 1 TAB PO Q6H PRN for PAIN-MODERATE MDD 4 TABS for 5 Days, #30 TAB Prov: NEYMAR LANDAVERDE APRN 07/05/18 NEYMAR LANDAVERDE APRN July 05, 2018 16:06
[2018-07-05] MEDS ORDERED: HYDROmorphone 2 MG/ML VIAL (DILAUDID) IV ONE ×2 (16:15→17:00)
[2018-07-05] MEDS ORDERED: ONDANSETRON 4 MG/2 ML (SDV) Z0FRAN IVP ONE ×2 (16:15→18:00)
[2018-07-05] MEDS ORDERED: KETOROLAC 30 MG/ML VIAL IVP ONE (16:15)
[2018-07-05 16:32] LABS: BASOPHILS % (AUTO) 0 % (0-10); EOSINOPHILS # (AUTO) 0.5 10^3/uL (0.0-0.3); EOSINOPHILS % (AUTO) 4 % (0-10); HEMATOCRIT 41 % (35-52); HEMOGLOBIN 13.7 G/DL (11.5-16.0); LYMPHOCYTES # (AUTO) 2.9 X 10^3 (1.0-4.0); LYMPHOCYTES % (AUTO) 28 % (12-44); MEAN CORPUSCULAR HEMOGLOBIN 28 PG (25-34); MEAN CORPUSCULAR HGB CONC 34 G/DL (32-36); MEAN CORPUSCULAR VOLUME 85 FL (80-99); MONOCYTES # (AUTO) 0.6 X 10^3 (0.0-1.0); MONOCYTES % (AUTO) 6 % (0-12); NEUTROPHILS # (AUTO) 6.4 X 10^3 (1.8-7.8); NEUTROPHILS % (AUTO) 62 % (42-75); PLATELET COUNT 357 10^3/uL (130-400); RED CELL DISTRIBUTION WIDTH 12.9 % (10.0-14.5); WHITE BLOOD COUNT 10.4 10^3/uL (4.3-11.0)
[2018-07-05 16:49] LABS: ALANINE AMINOTRANSFERASE 29 U/L (0-55); ALBUMIN 4.2 GM/DL (3.2-4.5); ALKALINE PHOSPHATASE 73 U/L (40-136); BILIRUBIN,TOTAL 0.4 MG/DL (0.1-1.0); BUN/CREATININE RATIO 16; CALCIUM 9.5 MG/DL (8.5-10.1); CARBON DIOXIDE 24 MMOL/L (21-32); CHLORIDE 105 MMOL/L (98-107); CREATININE SERUM 0.67 MG/DL (0.60-1.30); GFR ESTIMATED > 60; GLUCOSE 81 MG/DL (70-105); POTASSIUM 3.7 MMOL/L (3.6-5.0); SODIUM 138 MMOL/L (135-145); TOTAL PROTEIN 7.5 GM/DL (6.4-8.2)
--- NOTE | 2018-07-05 16:58 | Diagnostic Imaging Report ---
Clinical indication: Patient with stomach pain. Exam: Transabdominal and transvaginal ultrasound of the pelvis. Comparison: CT scan of the abdomen and pelvis performed with contrast dated 07/02/2018. Findings: The uterus has normal echogenicity and configuration. IUD is noted with some component overlying the low uterus and possibly cervix. The uterus measures 7.9 cm x 4.4 cm x 5.2 cm. Endometrium measures 2 mm. There is a 5.0 cm x 4.4 cm x 4.2 cm right adnexal mass which demonstrates no central Doppler flow. There is increased echogenicity seen within it. Bilateral ovaries are not visualized on this exam. There is no free fluid in the pelvis. Impression: 1: There is a 5.0 cm lesion in the right adnexal area which measures 5.0 cm in greatest axial dimension. This most correlates with the cystic structure seen on the comparison CT scan. Considerations may include a hemorrhagic cyst or an endometrioma. Followup ultrasound of the pelvis in 6 weeks is suggested for further evaluation. 2: The ovaries are unable to be visualized on this exam. 3: IUD is possibly in the lower uterus/cervical region. Patient was noted to have IUD in good position within the fundus on the comparison CT scan. Dictated by: Dictated on workstation # [id number]
[2018-07-05] MEDS ORDERED: OXYC1TAB16 PO (17:09)
--- NOTE | 2018-07-05 17:57 | NUR ---
WENT TO CHECK ON PT, PT SLEEPING, WHEN I WOKE PT UP PT BEGAN TO MOTION LIKE SHE WAS GOING TO THROW UP, BASEN GIVEN AND PT THREW UP SHORTLY AFTER NEYMAR LANDAVERDE WALKED IN THE . ORDER GIVEN FOT ZOFRAN 8 MG.
--- NOTE | 2018-07-05 18:16 | NUR ---
ENTERED PT'S RM TO SEE HOW SHE WAS FEELING AND SHE BEGAN TO THROW UP AGAIN. 1820 I CALLED THE LANGUAGE LINE TO TALK TO THE PT AND THE PT STATES THAT SHE FEELS DIZZY. I EXPLAINED THAT THIS COULD BE FROM THE PAIN MEDICATION THAT WE GAVE HER. I LET HER KNOW THAT SHE IS READY FOR DISCHARGE WHENEVER SHE FEELS BETTER AND THAT WE WOULD WATCH HER UNTIL SHE DOESN'T FEEL DIZZY BECAUSE SHE STATED THAT SHE DID NOT FEEL LIKE SHE COULD WALK AT THIS TIME. THE PT STATED UNDERSTANDING TO THIS PLAN.
--- NOTE | 2018-07-05 19:00 | NUR ---
REPORT GIVEN TO JOSÉ MIGUEL NEAL. PT SLEEPING WHEN WE ENTERED THE , WOKE PT UP AND SHE MOTIONED LIKE SHE WAS STILL DIZZY. WAITING TILL PT NOT DIZZY TO DISCHARGE.
--- NOTE | 2018-07-05 19:33 | NUR ---
PT RESTING IN BED. PT WAS AROUSED AND IMMEDIATELY C/O DIZZINESS AFTER BEING WOKEN UP. PROVIDER UPDATED.
[2018-07-05 20:01] VITALS: BP 115/72
== END 2018-07-05 20:01 | disposition home or self-care (01) ==
LOC: EDUNIT# 15:44 → ER 15:47
DX: N83.201 Unspecified ovarian cyst, right side (principal)
CPT/HCPCS: 36415; 76830; 76856; 80053; 85025

== ENCOUNTER 2018-12-01 08:00 | Day surgery (SDC) | payer SELFPAY ==
[~2018-12-01] VITALS: Ht 157.5 cm; Wt 59.3 kg
[~2018-12-01 08:00] MED LIST changes: +OXYC1TAB16 PO
[2018-12-01] MEDS ORDERED: LACTATED RINGERS 1,000 ML IV ONE (08:14)
[2018-12-01] MEDS ORDERED: KETOROLAC 30 MG/ML VIAL IVP ONE (08:15)
[2018-12-01] MEDS ORDERED: ONDANSETRON 4 MG/2 ML (SDV) Z0FRAN IVP ONE ×3 (08:15→10:00)
[2018-12-01] MEDS ORDERED: FAMOTIDINE 20MG/2ML IV (PEPCID) IVP ONE (08:15)
[2018-12-01 08:21] LABS: BILIRUBIN,URINE NEGATIVE (NEGATIVE); CLARITY,URINE CLEAR; COLOR,URINE YELLOW; GLUCOSE, URINE (UA) NEGATIVE (NEGATIVE); KETONES,URINE 1+ (NEGATIVE); LEUKOCYTE ESTERASE ,URINE 3+ (NEGATIVE); NITRITE,URINE NEGATIVE (NEGATIVE); PH,URINE 5 (5-9); PROTEIN,URINE 3+ (NEGATIVE); UROBILINOGEN,URINE 1 MG/DL (NORMAL)
--- NOTE | 2018-12-01 08:23 | ED Abdominal Pain ---
General Chief Complaint: Abdominal/GI Problems Stated Complaint: ABD PAIN Source of Information: Patient Exam Limitations: Language Barrier (language line) History of Present Illness Date Seen by Provider: Dec 01, 2018 Time Seen by Provider: 08:09 Initial Comments Patient presents with last day or so progressively worsening pain in her epigastric and right upper quadrant abdominal compartments with nausea but no vomiting. No fevers but she's had chills. No diarrhea had a bowel movement yesterday was normal. No history of early bowel, inflammatory bowel. She's had times one but no other surgeries. She is not on control or taking any routine medicines. Denies any history of medical problems. No dys uria. Allergies and Home Medications Allergies Coded Allergies: No Known Drug Allergies (Unverified , 05/18/15) Home Medications Docusate Sodium 100 Mg Capsule, 100 MG PO BID PRN for CONSTIPATION-1ST LINE Prescribed by: JANNETTE HAGEN on 03/15/17 1002 Hydrocodone Bit/Acetaminophen 1 Tab Tab, 1-2 TAB PO Q4H PRN for PAIN-MODERATE Prescribed by: JANNETTE HAGEN on 03/15/17 1002 Hydrocodone Bit/Acetaminophen 1 Tab Tab, 1 EACH PO Q4-6HR PRN for PAIN-MODERATE Prescribed by: NEYMAR LANDAVERDE on 07/02/18 1642 Ibuprofen 600 Mg Tablet, 600 MG PO Q6H Prescribed by: JANNETTE HAGEN on 03/15/17 1002 Nitrofurantoin Monohyd/M-Cryst 100 Mg Capsule, 100 MG PO BID Prescribed by: AMELIA LO on 12/02/17 1018 Ondansetron 4 Mg Tab.rapdis, 4 MG PO Q4H Prescribed by: AMELIA LO on 12/02/17 1018 Oxycodone HCl/Acetaminophen 1 Each Tablet, 1 TAB PO Q6H PRN for PAIN-MODERATE Prescribed by: NEYMAR LANDAVERDE on 07/05/18 1709 Vit #76/Iron,Carb/FA 1 Each Tablet, 1 EACH PO DAILY, (Reported) Patient Home Medication List Home Medication List Reviewed: Yes Review of Systems Review of Systems Constitutional: No chills, No fever; malaise EENTM: No Blurred Vision, No Double Vision Respiratory: Denies Cough, Denies Shortness of Air Cardiovascular: Denies Chest Pain, Denies Edema Gastrointestinal: See HPI; Denies Abdomen Distended; Abdominal Pain; Denies Constipated, Denies Diarrhea; Nausea; Denies Vomiting Genitourinary: Denies Burning, Denies Discharge Musculoskeletal: No back pain, No joint pain Past Mzecmzh-Uurtgs-Loyjug Hx Patient Social History Alcohol Use: Denies Use Recreational Drug Use: No Smoking Status: Never a Smoker 2nd Hand Smoke Exposure: No Recent Hopitalizations: No Immunizations Up To Date Date of Influenza Vaccine: Dec 29, 2016 Seasonal Allergies Seasonal Allergies: No Past Medical History Surgeries: No Respiratory: No Cardiac: No Neurological: No Reproductive Disorders: No Female Reproductive Disorders: Ovarian Cyst Sexually Transmitted Disease: No HIV/AIDS: No Gastrointestinal: No Musculoskeletal: No Endocrine: No Cancer: No Psychosocial: No Integumentary: No Blood Disorders: No Adverse Reaction/Blood Tranf: No Family Medical History Patient reports no known family medical history. No Pertinent Family Hx Physical Exam Vital Signs Vital Signs - First Documented 12/01/18 08:05 Temp 37.1 Pulse 107 Resp 16 B/P (MAP) 130/99 (109) Pulse Ox 98 O2 Delivery Room Air Capillary Refill : Height/Weight/BMI Height: 4'11.00" Weight: 134lbs. 0oz. 60.651224xh; 28.3 BMI Method:Actual General Appearance: WD/WN, mild distress HEENT: PERRL/EOMI, pharynx normal Neck: full range of motion, normal inspection Respiratory: no respiratory distress, no accessory muscle use Cardiovascular: normal peripheral pulses, regular rate, rhythm, tachycardia (100) Peripheral Pulses: 2+ Radial Pulses (R), 2+ Radial Pulses (L) Gastrointestinal: normal bowel sounds, soft, no organomegaly, guarding, tenderness (RUQ with Alexis's sign), other (neg mesenteric signs) Extremities: normal range of motion, non-tender, normal inspection, normal capillary refill Neurologic/Psychiatric: alert, oriented x 3 Skin: normal color, warm/dry Progress/Results/Core Measures Results/Orders Lab Results Laboratory Tests Test 12/01/18 08:12 12/01/18 08:25 Range/Units Urine Color YELLOW Urine Clarity CLEAR Urine pH 5 5-9 Urine Specific Manning 1.025 H 1.016-1.022 Urine Protein 3+ H NEGATIVE Urine Glucose (UA) NEGATIVE NEGATIVE Urine Ketones 1+ H NEGATIVE Urine Nitrite NEGATIVE NEGATIVE Urine Bilirubin NEGATIVE NEGATIVE Urine Urobilinogen 1 NORMAL MG/DL Urine Leukocyte Esterase 3+ H NEGATIVE Urine RBC (Auto) 1+ H NEGATIVE Urine RBC 2-5 H /HPF Urine WBC 50-100 H /HPF Urine Squamous Epithelial Cells 25-50 H /HPF Urine Crystals NONE /LPF Urine Bacteria MODERATE H /HPF Urine Casts NONE /LPF Urine Mucus LARGE H /LPF Urine Culture Indicated YES White Blood Count 9.8 4.3-11.0 10^3/uL Red Blood Count 5.07 4.35-5.85 10^6/uL Hemoglobin 14.5 11.5-16.0 G/DL Hematocrit 43 35-52 % Mean Corpuscular Volume 84 80-99 FL Mean Corpuscular Hemoglobin 29 25-34 PG Mean Corpuscular Hemoglobin Concent 34 32-36 G/DL Red Cell Distribution Width 12.9 10.0-14.5 % Platelet Count 315 130-400 10^3/uL Mean Platelet Volume 9.6 7.4-10.4 FL Neutrophils (%) (Auto) 57 42-75 % Lymphocytes (%) (Auto) 29 12-44 % Monocytes (%) (Auto) 7 0-12 % Eosinophils (%) (Auto) 7 0-10 % Basophils (%) (Auto) 0 0-10 % Neutrophils # (Auto) 5.6 1.8-7.8 X 10^3 Lymphocytes # (Auto) 2.8 1.0-4.0 X 10^3 Monocytes # (Auto) 0.7 0.0-1.0 X 10^3 Eosinophils # (Auto) 0.6 H 0.0-0.3 10^3/uL Basophils # (Auto) 0.0 0.0-0.1 10^3/uL Sodium Level 139 135-145 MMOL/L Potassium Level 3.9 3.6-5.0 MMOL/L Chloride Level 106 98-107 MMOL/L Carbon Dioxide Level 25 21-32 MMOL/L Anion Gap 8 5-14 MMOL/L Blood Urea Nitrogen 10 7-18 MG/DL Creatinine 0.70 0.60-1.30 MG/DL Estimat Glomerular Filtration Rate > 60 BUN/Creatinine Ratio 14 Glucose Level 94 70-105 MG/DL Calcium Level 9.4 8.5-10.1 MG/DL Corrected Calcium 9.3 8.5-10.1 MG/DL Total Bilirubin 0.7 0.1-1.0 MG/DL Aspartate Amino Transf (AST/SGOT) 27 5-34 U/L Alanine Aminotransferase (ALT/SGPT) 37 0-55 U/L Alkaline Phosphatase 79 40-136 U/L Troponin I < 0.028 <0.028 NG/ML Total Protein 7.4 6.4-8.2 GM/DL Albumin 4.1 3.2-4.5 GM/DL Lipase 14 8-78 U/L My Orders Orders - TRUONG ZEPEDA Ua Culture If Indicated (12/01/18 08:01) Urine Bedside (12/01/18 08:01) Cbc With Automated Diff (12/01/18 08:14) Comprehensive Metabolic Panel (12/01/18 08:14) Lipase (12/01/18 08:14) Ed Iv/Invasive Line Start (12/01/18 08:14) Lactated Ringers (Lr 1000 Ml Iv Solution (12/01/18 08:14) Us Gallbladder [id number] (12/01/18 08:14) Famotidine Injection (Pepcid Injection) (12/01/18 08:15) Ondansetron Injection (Zofran Injectio (12/01/18 08:15) Ketorolac Injection (Toradol Injection) (12/01/18 08:15) Urine Culture (12/01/18 08:12) Ceftriaxone For Iv Use (Rocephin For I (12/01/18 09:30) Fentanyl Injection (Sublimaze Injection (12/01/18 09:30) Troponin I (12/01/18 09:34) Ekg Tracing (12/01/18 09:34) Continuous Ekg Monitoring (12/01/18 09:34) Ondansetron Injection (Zofran Injectio (12/01/18 10:00) Ct Abdomen/Pelvis W (12/01/18 09:47) Ondansetron Injection (Zofran Injectio (12/01/18 10:00) Iohexol Injection (Omnipaque 350 Mg/Ml 1 (12/01/18 10:00) Received Contrast (Hold Metformin- Contr (12/01/18 10:00) Ns (Ivpb) (Sodium Chloride 0.9% Ivpb Bag (12/01/18 10:00) Fentanyl Injection (Sublimaze Injection (10/2/19 10:15) Promethazine Injection (Phenergan Injec (12/01/18 11:15) Ed Iv/Invasive Line Start (12/01/18 11:05) Ns Iv 500 Ml (Sodium Chloride 0.9%) (12/01/18 11:05) Medications Given in ED Current Medications Medications Dose Ordered Sig/Luz Elena Route Start Time Stop Time Status Last Admin Dose Admin Ceftriaxone Sodium 1000 mg/ Sterile Water 10 ml @ 200 mls/hr ONCE ONCE IV 12/01/18 09:30 12/01/18 09:32 DC 12/01/18 09:33 200 MLS/HR Famotidine 20 mg ONCE ONCE IVP 12/01/18 08:15 12/01/18 08:18 DC 12/01/18 08:26 20 MG Fentanyl Citrate 50 mcg ONCE ONCE IVP 12/01/18 09:30 12/01/18 09:31 DC 12/01/18 09:33 50 MCG Fentanyl Citrate 50 mcg ONCE ONCE IVP 12/01/18 10:15 12/01/18 10:16 DC 12/01/18 10:05 50 MCG Iohexol 75 ml ONCE ONCE IV 12/01/18 10:00 12/01/18 10:01 DC 12/01/18 10:17 77 ML Ketorolac Tromethamine 30 mg ONCE ONCE IVP 12/01/18 08:15 12/01/18 08:18 DC 12/01/18 08:26 30 MG Lactated Ringer's 1,000 ml @ 0 mls/hr Q0M ONCE IV 12/01/18 08:14 12/01/18 08:18 DC 12/01/18 08:26 1,000 MLS/HR Ondansetron HCl 4 mg ONCE ONCE IVP 12/01/18 08:15 12/01/18 08:18 DC 12/01/18 08:26 4 MG Ondansetron HCl 8 mg ONCE ONCE IVP 12/01/18 10:00 12/01/18 10:01 DC 12/01/18 08:48 8 MG Promethazine HCl 25 mg ONCE ONCE IVP 12/01/18 11:15 12/01/18 11:16 DC 12/01/18 11:14 25 MG Sodium Chloride 100 ml ONCE ONCE IV 12/01/18 10:00 12/01/18 10:01 DC 12/01/18 10:17 80 ML Sodium Chloride 500 ml @ 0 mls/hr Q0M ONCE IV 12/01/18 11:05 12/01/18 11:06 DC 12/01/18 11:14 500 MLS/HR Vital Signs/I&O 12/01/18 08:05 Temp 37.1 Pulse 107 Resp 16 B/P (MAP) 130/99 (109) Pulse Ox 98 O2 Delivery Room Air Progress Progress Note #1: Time: 08:21 Progress Note GB US, 1L LR, Labs, UA, Toradol, Zofran, Pepcid. Cholecystitis versus gastritis versus gastroenteritis versus less likely pancreatitis versus other? Progress Note #2: Time: 09:25 Progress Note The patient still having some pain. We'll plan to give her some fentanyl and Rocephin. Her urine probably recommend represents contamination but could be UTI/pyelonephritis. Put her out on Keflex. Labs look fine. We'll recommend a HIDA scan outpatient. 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 No rebound tenderness over McBurney's point nor Rovsing sign. The tenderness in the right lower quadrant is new. Planned obtain CT scan. She became nauseated with our examination so we have given her 8 mg Zofran and a total of 100 g of fentanyl for pain. The first 50 g did significantly help her pain. Progress Note #4: Time: 11:05 Progress Note The patient still having nausea with vomiting. We'll give her 25 mg of Phenergan a little bit more IV fluids and if this is not correct her symptoms we could put her on observation for intractable nausea and vomiting most likely due to biliary dyskinesia. Progress Note #5: Time: 11:48 Progress Note After Phenergan the patient is still having some nausea. We have offered him observation stay for intractable nausea vomiting versus outpatient management and she would prefer to stay for now. We have explained the workup will still be outpatient and she is okay with that. Initial ECG Impression Date: Dec 01, 2018 Initial ECG Impression Time: 09:40 Initial ECG Rate: 56 Initial ECG Rhythm: Normal Sinus Initial ECG Intervals: Normal Initial ECG Impression: Normal Comment Normal sinus rhythm without ST changes. Diagnostic Imaging Diagonstic Imaging: Ultrasound Plain Films/CT/US/NM/MRI: abdomen (GB) Comments No stones or sludge. No pericholecystic fluid. There are some kidney cysts with the greatest diameter 1.8 cm. NAME: JAGDISH CR [facility] REC#: [id number] PT STATUS: REG ER : 1985 PHYSICIAN: TRUONG ZEPEDA MD ADMIT DATE: 12/01/18/ER Signed Date of Exam:12/01/18 US GALLBLADDER [id number] EXAMINATION: US Abdomen limited. TECHNIQUE: Multiple real-time grayscale images were obtained over the right upper quadrant in various projections. HISTORY: Epigastric pain FINDINGS: Comparison is 04/22/2015 The liver is normal in size and echogenicity. No focal lesions are seen. The portal vein is patent with hepatopedal flow. Gallbladder is normal without wall thickening or pericholecystic fluid. The gallbladder wall measures 1 mm. Common duct measures 4 mm. There is no biliary ductal dilation. The visualized portions of the pancreas are normal. The right kidney contains multiple cysts but is otherwise normal without hydronephrosis. There is no ascites. Sonographic Alexis sign is negative. IMPRESSION: 1. Unremarkable right upper quadrant ultrasound. Dictated by: Dictated on workstation # [id number] Dict: 12/01/18925 Trans: 12/01/18927 [facility] [id number] Interpreted by: KINGSLEY ZHANG MD Electronically signed by: KINGSLEY ZHANG MD 12/01/18927 Reviewed: Reviewed by Me Diagonstic Imaging: CT (with IV contrast) Plain Films/CT/US/NM/MRI: abdomen, pelvis Comments Appendix is visualized are unremarkable. Gallbladder has no pericholecystic fluid or dilatation of the ducts. No free fluid or free air. Bilateral ovarian cysts. Unremarkable CT of the abdomen and pelvis. NAME: JAGDISH CR [facility] REC#: [id number] PT STATUS: REG ER : 1985 PHYSICIAN: TRUONG ZEPEDA MD ADMIT DATE: 12/01/18/ER Draft Date of Exam:12/01/18 CT ABDOMEN/PELVIS W PROCEDURE: CT abdomen and pelvis with contrast. TECHNIQUE: Multiple contiguous axial images were obtained through the abdomen and pelvis after administration of intravenous contrast. Auto Exposure Controls were utilized during the CT exam to meet ALARA standards for radiation dose reduction. INDICATION: Right abdominal pain The previous CT abdomen/pelvis exam of 07/02/2018 failed to show any evidence for acute appendicitis. There was a 2.8 cm cyst arising from the right ovary however. On this exam the appendix was visualized and is still not abnormally thickened. The appendix is in close proximity to the aforementioned right ovarian cyst. The cyst now measures 2.7 cm. There is no solid pelvic mass or free fluid collection to suggest an acute abnormality. In the interval since the prior exam a 3.8 cm left ovarian cyst has developed. As noted on the previous study there is an IUD in place. The IUD seems to be in good position. The uterus itself is similar in appearance to the prior exam. The urinary bladder is grossly unremarkable. The multiple small cysts involving the cortex of the right kidney seen previously are again evident. Both kidneys do show excretion of the contrast and there is no evidence for obstruction of either collecting system. The liver, spleen, pancreas, adrenals, gallbladder, aorta and inferior vena cava are unremarkable for an acute abnormality. There may be a small amount of sludge within the gallbladder. If further study is desired, then ultrasound would be recommended. The stomach is not well distended and consequently difficult to assess. The lung bases are clear. The bone windows show no evidence for a fracture or for a destructive lesion. IMPRESSION: 1. There is still no evidence for acute appendicitis. 2. There are bilateral ovarian cysts. 3. There is no acute abnormality of the abdomen and pelvis noted otherwise. 4. Results were discussed with Dr. ZEPEDA in the Emergency Room. Dictated on workstation # [id number] Dict: 12/01/18 1024 Trans: 12/01/18 1109 [place] [id number] Interpreted by: RISSA BOWMAN MD Electronically signed by: Reviewed: Reviewed by Me Departure Communication (Admissions) Time/Spoke to Admitting Phy: 12:00 Discussed case lab imaging with Dr. Fry and she agrees to observe the patient for intractable nausea vomiting Impression Primary Impression: Intractable nausea and vomiting Additional Impression: Abdominal pain Qualified Codes: R10.11 - Right upper quadrant pain Disposition: ADMITTED INPATIENT Condition: Stable Admissions Decision to Admit Reason: Admit from ER (General) Decision to Admit/Date: Dec 01, 2018 Time/Decision to Admit Time: 11:43 Departure-Patient Inst. Referrals: [facility] [place] (PCP/Family) Primary Care Physician TRUONG ZEPEDA Dec 01, 2018 08:23
[2018-12-01 08:30] LABS: BASOPHILS % (AUTO) 0 % (0-10); EOSINOPHILS # (AUTO) 0.6 10^3/uL (0.0-0.3); EOSINOPHILS % (AUTO) 7 % (0-10); HEMATOCRIT 43 % (35-52); HEMOGLOBIN 14.5 G/DL (11.5-16.0); LYMPHOCYTES # (AUTO) 2.8 X 10^3 (1.0-4.0); LYMPHOCYTES % (AUTO) 29 % (12-44); MEAN CORPUSCULAR HEMOGLOBIN 29 PG (25-34); MEAN CORPUSCULAR HGB CONC 34 G/DL (32-36); MEAN CORPUSCULAR VOLUME 84 FL (80-99); MEAN PLATELET VOLUME 9.6 FL (7.4-10.4); MONOCYTES # (AUTO) 0.7 X 10^3 (0.0-1.0); MONOCYTES % (AUTO) 7 % (0-12); NEUTROPHILS # (AUTO) 5.6 X 10^3 (1.8-7.8); NEUTROPHILS % (AUTO) 57 % (42-75); PLATELET COUNT 315 10^3/uL (130-400); RED CELL DISTRIBUTION WIDTH 12.9 % (10.0-14.5); WHITE BLOOD COUNT 9.8 10^3/uL (4.3-11.0)
[2018-12-01 08:36] LABS: BACTERIA,URINE MODERATE /HPF; SQUAMOUS EPITHELIAL CELL,UR 25-50 /HPF; WBC,URINE 50-100 /HPF
[2018-12-01 08:58] LABS: ALANINE AMINOTRANSFERASE 37 U/L (0-55); ALBUMIN 4.1 GM/DL (3.2-4.5); ALKALINE PHOSPHATASE 79 U/L (40-136); BILIRUBIN,TOTAL 0.7 MG/DL (0.1-1.0); BUN/CREATININE RATIO 14; CALCIUM 9.4 MG/DL (8.5-10.1); CARBON DIOXIDE 25 MMOL/L (21-32); CHLORIDE 106 MMOL/L (98-107); GFR ESTIMATED > 60; GLUCOSE 94 MG/DL (70-105); LIPASE 14 U/L (8-78); POTASSIUM 3.9 MMOL/L (3.6-5.0); SODIUM 139 MMOL/L (135-145); TOTAL PROTEIN 7.4 GM/DL (6.4-8.2)
--- NOTE | 2018-12-01 09:24 | NUR ---
IN TALKING TO PT AT THIS TIME
[2018-12-01] MEDS ORDERED: cefTRIAXone FOR IV USE 1,000 MG in WATER (STERILE) FOR INJECTION 10 ML IV ONE (09:30)
[2018-12-01] MEDS ORDERED: fentaNYL INJECTION 100 MCG/2 ML AMP IVP ONE ×2 (09:30→10:15)
--- NOTE | 2018-12-01 09:30 | Diagnostic Imaging Report ---
EXAMINATION: US Abdomen limited. TECHNIQUE: Multiple real-time grayscale images were obtained over the right upper quadrant in various projections. HISTORY: Epigastric pain FINDINGS: Comparison is 04/22/2015 The liver is normal in size and echogenicity. No focal lesions are seen. The portal vein is patent with hepatopedal flow. Gallbladder is normal without wall thickening or pericholecystic fluid. The gallbladder wall measures 1 mm. Common duct measures 4 mm. There is no biliary ductal dilation. The visualized portions of the pancreas are normal. The right kidney contains multiple cysts but is otherwise normal without hydronephrosis. There is no ascites. Sonographic Alexis sign is negative. IMPRESSION: 1. Unremarkable right upper quadrant ultrasound. Dictated by: Dictated on workstation # [id number]
[2018-12-01] MEDS ORDERED: IOHEXOL 350 MG/ML 100 ML (OMNIPAQUE 350) VIAL IV ONE (10:00)
[2018-12-01] MEDS ORDERED: HOLD METFORMIN - RECEIVED CONTRAST 20 ML VIAL IV SCH (10:00)
[2018-12-01] MEDS ORDERED: NS 100 ML (IVPB) BAG IV ONE (10:00)
--- NOTE | 2018-12-01 10:53 | NUR ---
DR IN ROOM WITH PT AT THIS TIME.
[2018-12-01] MEDS ORDERED: NS IV 500 ML 500 ML IV ONE (11:05)
--- NOTE | 2018-12-01 11:11 | Diagnostic Imaging Report ---
PROCEDURE: CT abdomen and pelvis with contrast. TECHNIQUE: Multiple contiguous axial images were obtained through the abdomen and pelvis after administration of intravenous contrast. Auto Exposure Controls were utilized during the CT exam to meet ALARA standards for radiation dose reduction. INDICATION: Right abdominal pain The previous CT abdomen/pelvis exam of 07/02/2018 failed to show any evidence for acute appendicitis. There was a 2.8 cm cyst arising from the right ovary however. On this exam the appendix was visualized and is still not abnormally thickened. The appendix is in close proximity to the aforementioned right ovarian cyst. The cyst now measures 2.7 cm. There is no solid pelvic mass or free fluid collection to suggest an acute abnormality. In the interval since the prior exam a 3.8 cm left ovarian cyst has developed. As noted on the previous study there is an IUD in place. The IUD seems to be in good position. The uterus itself is similar in appearance to the prior exam. The urinary bladder is grossly unremarkable. The multiple small cysts involving the cortex of the right kidney seen previously are again evident. Both kidneys do show excretion of the contrast and there is no evidence for obstruction of either collecting system. The liver, spleen, pancreas, adrenals, gallbladder, aorta and inferior vena cava are unremarkable for an acute abnormality. There may be a small amount of sludge within the gallbladder. If further study is desired, then ultrasound would be recommended. The stomach is not well distended and consequently difficult to assess. The lung bases are clear. The bone windows show no evidence for a fracture or for a destructive lesion. IMPRESSION: 1. There is still no evidence for acute appendicitis. 2. There are bilateral ovarian cysts. 3. There is no acute abnormality of the abdomen and pelvis noted otherwise. 4. These results were discussed with Dr. ZEPEDA in the Emergency Room. Dictated by: Dictated on workstation # [id number]
[2018-12-01] MEDS ORDERED: PROMETHAZINE INJ 25 MG/ML (PHENERGAN) AMP IVP ONE (11:15)
[2018-12-01 12:30] VITALS: BP 98/58
--- NOTE | 2018-12-01 12:30 | NUR ---
JAGDISH CR admitted to room 418-1, with an admitting diagnosis of INTRACTABLE NAUSEA/VOMITTING,RIGHT UPPER QUADRANT ABDOMINAL PAIN, on 12/01/18 from ED via WHEELCHAIR, accompanied by STAFF AND FAMILY.JAGDISH CR introduced to surroundings, call light, bed controls, phone, TV, temperature control, lights, meal times, smoking policy, visitor policy, side rail policy, bathrooms and showers. Patient Rights given to patient in the handbook. JAGDISH CR verbalizes understanding that [facility] is not responsible for the loss or damage to any personal effects or valuables that are kept in the patients posession during their hospitalization. JAGDISH CR verbalizes understanding of Interdisciplinary Patient Education. Patient and/or family were informed about the Rapid Response Team and its purpose.
[2018-12-01] MEDS ORDERED: ONDANSETRON 4 MG/2 ML (SDV) Z0FRAN IV PRN (13:00)
[2018-12-01] MEDS ORDERED: PROMETHAZINE INJ 25 MG/ML (PHENERGAN) AMP IV PRN (13:00)
[2018-12-01] MEDS ORDERED: ACETAMINOPHEN 500 MG TAB (TYLENOL) PO PRN (13:00)
[2018-12-01] MEDS ORDERED: CATHETER FLUSH 10 ML SYR IV PRN (13:15)
[2018-12-01] MEDS: CATHETER FLUSH 10 ML SYR IV SCH ×2 (14:03→21:00)
--- NOTE | 2018-12-01 14:23 | History & Physical ---
CISCO LOPEZ, 12/01/18 1423: HPI History of Present Illness: CC: nausea and vomiting HPI: Pt had a headache on Thursday and she believes this is when her illness began. On Thursday afternoon, pt ate and vomited. She denied feeling sick at that time. Pt awoke yesterday was having abdominal pain along with nausea and vomiting. She rated her pain 10/10 on the pain scale, but after medications in the ER, she rates it a 3/10. She localizes her pain around her umbilicus and it radiates into her epigastric area. All food triggers her abdominal pain and she can note nothing specific that triggers her pain. She had been taking Tylenol at home to help with the pain, but it didn't work. She describes the pain as "pushing" and states that it comes from the inside. Source: patient Exam Limitations: language barrier (needs retirement sales consultant) Date seen by provider: Dec 01, 2018 Time Seen by Provider: 13:45 Attending Physician Melvin Cohen MD [facility] [place] Consult Date of Admission Dec 01, 2018 at 12:12 Home Medications Home Medications Reviewed patient Home Medication Reconciliation performed by pharmacy medication reconciliations certified technician and/or nursing. Patients Allergies have been reviewed. Allergies Coded Allergies: No Known Drug Allergies (Unverified , 05/18/15) APF-Kiztxo-Yuokgf Hx Patient Social History Alcohol Use: Denies Use Recreational Drug Use: No Smoking Status: Never a Smoker 2nd Hand Smoke Exposure: No Recent Foreign Travel: No Contact w/other who traveled: No Recent Hopitalizations: No Recent Infectious Disease Expo: No Immunizations Up To Date Date of Influenza Vaccine: Dec 29, 2016 Past Medical History PSHx: 1. Family Medical History Significant Family History: No Pertinent Family Hx (Pt denies family medical history) Family History: Patient reports no known family medical history. Review of Systems ([facility]) Constitutional: chills; No fever EENTM: No nose congestion, No throat pain Respiratory: No cough, No short of breath Cardiovascular: chest pain (when stomach hurts); No palpitations Gastrointestinal: abdominal pain; No constipation; diarrhea (yesterday), nausea, vomiting Genitourinary: No dysuria, No frequency; other (c/o increased concentration) Musculoskeletal: No muscle stiffness, No muscle weakness Skin: No lesions, No rash Psychiatric/Neurological: Anxiety, Depressed; Denies Numbness, Denies Tingling Physical Exam-([facility]) Physical Exam Vital Signs VS - Last 72 Hours, by Label 12/01/18 12/01/18 12/01/18 12/01/18 08:05 12:30 12:40 15:00 Temp 37.1 36.6 Pulse 107 62 65 Resp 16 16 16 B/P (MAP) 130/99 (109) 98/58 100/68 Pulse Ox 98 97 98 O2 Delivery Room Air Room Air Room Air Capillary Refill : Less Than 3 Seconds General Appearance: WD/WN, no apparent distress Eyes: Bilateral Eye Normal Inspection, Bilateral Eye EOMI HEENT: pharynx normal; No pale conjunctivae (R), No pale conjunctivae (L) Neck: supple, other (tender on R side) Respiratory: chest non-tender, lungs clear, normal breath sounds, no respiratory distress, no accessory muscle use Cardiovascular: regular rate, rhythm, no murmur Peripheral Pulses: 2+ Radial Pulses (R), 2+ Radial Pulses (L) Gastrointestinal: normal bowel sounds, tenderness (RLQ especially, but generalized abdominal pain), other (negative Alexis's sign) Extremities: no pedal edema, no calf tenderness, other (pain in RLE near hip) Neurologic/Psychiatric: alert, normal mood/affect, oriented x 3 Skin: normal color, warm/dry Lymphatic: no adenopathy Assessment/Plan Assessment/Plan Assessment & Plan Assessment: 1. Nausea and vomiting 2. Generalized abdominal pain 3. Chest pain correlating with abdominal pain 4. RUQ pain 5. Bilateral ovarian cysts noted on CT Plan: 1. Continue Zofran and Phenergan for n/v. 2. Utilize pain medications if necessary. Clear liquids as tolerated but otherwise NPO. 3. May consult general surgery for EGD if symptoms persist. 4. U/S negative, needs outpatient HIDA scan if symptoms persist. 5. Finding may correlate with RLQ and R thigh pain. Pelvic U/S could be utilized to monitor if other scans are negative. MELVIN COHEN MD 12/01/18 4620: Home Medications Allergies Coded Allergies: No Known Drug Allergies (Unverified , 05/18/15) TRA-Ozxalq-Uxepyi Hx Family Medical History Family History: Patient reports no known family medical history. Reviewed Test Results Reviewed Test Results Lab Laboratory Tests Test 12/01/18 08:12 12/01/18 08:25 Range/Units Urine Color YELLOW Urine Clarity CLEAR Urine pH 5 5-9 Urine Specific [place] 1.025 H 1.016-1.022 Urine Protein 3+ H NEGATIVE Urine Glucose (UA) NEGATIVE NEGATIVE Urine Ketones 1+ H NEGATIVE Urine Nitrite NEGATIVE NEGATIVE Urine Bilirubin NEGATIVE NEGATIVE Urine Urobilinogen 1 NORMAL MG/DL Urine Leukocyte Esterase 3+ H NEGATIVE Urine RBC (Auto) 1+ H NEGATIVE Urine RBC 2-5 H /HPF Urine WBC 50-100 H /HPF Urine Squamous Epithelial Cells 25-50 H /HPF Urine Crystals NONE /LPF Urine Bacteria MODERATE H /HPF Urine Casts NONE /LPF Urine Mucus LARGE H /LPF Urine Culture Indicated YES White Blood Count 9.8 4.3-11.0 10^3/uL Red Blood Count 5.07 4.35-5.85 10^6/uL Hemoglobin 14.5 11.5-16.0 G/DL Hematocrit 43 35-52 % Mean Corpuscular Volume 84 80-99 FL Mean Corpuscular Hemoglobin 29 25-34 PG Mean Corpuscular Hemoglobin Concent 34 32-36 G/DL Red Cell Distribution Width 12.9 10.0-14.5 % Platelet Count 315 130-400 10^3/uL Mean Platelet Volume 9.6 7.4-10.4 FL Neutrophils (%) (Auto) 57 42-75 % Lymphocytes (%) (Auto) 29 12-44 % Monocytes (%) (Auto) 7 0-12 % Eosinophils (%) (Auto) 7 0-10 % Basophils (%) (Auto) 0 0-10 % Neutrophils # (Auto) 5.6 1.8-7.8 X 10^3 Lymphocytes # (Auto) 2.8 1.0-4.0 X 10^3 Monocytes # (Auto) 0.7 0.0-1.0 X 10^3 Eosinophils # (Auto) 0.6 H 0.0-0.3 10^3/uL Basophils # (Auto) 0.0 0.0-0.1 10^3/uL Sodium Level 139 135-145 MMOL/L Potassium Level 3.9 3.6-5.0 MMOL/L Chloride Level 106 98-107 MMOL/L Carbon Dioxide Level 25 21-32 MMOL/L Anion Gap 8 5-14 MMOL/L Blood Urea Nitrogen 10 7-18 MG/DL Creatinine 0.70 0.60-1.30 MG/DL Estimat Glomerular Filtration Rate > 60 BUN/Creatinine Ratio 14 Glucose Level 94 70-105 MG/DL Calcium Level 9.4 8.5-10.1 MG/DL Corrected Calcium 9.3 8.5-10.1 MG/DL Total Bilirubin 0.7 0.1-1.0 MG/DL Aspartate Amino Transf (AST/SGOT) 27 5-34 U/L Alanine Aminotransferase (ALT/SGPT) 37 0-55 U/L Alkaline Phosphatase 79 40-136 U/L Troponin I < 0.028 <0.028 NG/ML Total Protein 7.4 6.4-8.2 GM/DL Albumin 4.1 3.2-4.5 GM/DL Lipase 14 8-78 U/L Physical Exam-([facility]) Physical Exam General Appearance: WD/WN Respiratory: lungs clear, normal breath sounds, no respiratory distress, no accessory muscle use Cardiovascular: regular rate, rhythm, no murmur Gastrointestinal: normal bowel sounds, soft, guarding (voluntary), tenderness (RLQ especially, but generalized abdominal pain); No other (negative Alexis's sign) Extremities: no pedal edema Neurologic/Psychiatric: alert, normal mood/affect Skin: normal color, warm/dry Assessment/Plan Assessment/Plan Admission Status: Observation (1) Intractable nausea and vomiting Status: Acute Assessment & Plan: Supportive care with IVF and antiemetics, unclear etiology. Possibly viral gastritis. (2) Abdominal pain Status: Acute Assessment & Plan: CT abdomen without GI pathology. RUQ ultrasound without liver or gall bladder abnormality. Consider HIDA outpatient, EGD. Qualifiers: Qualified Codes: R10.11 - Right upper quadrant pain (3) Ovarian cyst Status: Chronic Qualifiers: Qualified Codes: N83.201 - Unspecified ovarian cyst, right side; N83.202 - Unspecified ovarian cyst, left side (4) DVT prophylaxis Status: Acute Assessment & Plan: SCDs Supervisory-Addendum Brief Verification & Attestation Participated in pt care: history, MDM, physical Personally performed: exam, history, MDM Care discussed with: Medical Student Procedures: n/a Verification and Attestation of Medical Student E/M Service A medical student performed and documented this service in my presence. I reviewed and verified all information documented by the medical student and made modifications to such information, when appropriate. I personally performed the physical exam and medical decision making. See my portion of note for my physical exam findings and problem list for my assessment and plan. Melvin Cohen, Dec 01, 2018,16:41 CISCO LOPEZ, Dec 01, 2018 14:23 MELVIN COHEN MD Dec 01, 2018 16:05
[2018-12-01] MEDS: fentaNYL INJECTION 100 MCG/2 ML AMP IV PRN ×2 (14:52→21:02)
[2018-12-01] MEDS: KETOROLAC 15 MG/ML VIAL IV PRN (14:53)
--- NOTE | 2018-12-01 15:43 | NUR ---
Pt is [employer]. provided blessing.
[2018-12-01 15:50] VITALS: BP 99/59
[2018-12-01 20:30] VITALS: BP 94/57
[2018-12-01 23:45] VITALS: BP 95/61
[2018-12-02] VITALS (7 sets, daily range): BP systolic 87–121; BP diastolic 58–84
[2018-12-02 05:01] LABS: BASOPHILS % (AUTO) 0 % (0-10); EOSINOPHILS # (AUTO) 0.8 10^3/uL (0.0-0.3); EOSINOPHILS % (AUTO) 8 % (0-10); HEMATOCRIT 38 % (35-52); HEMOGLOBIN 12.8 G/DL (11.5-16.0); LYMPHOCYTES % (AUTO) 32 % (12-44); MEAN CORPUSCULAR HEMOGLOBIN 29 PG (25-34); MEAN CORPUSCULAR HGB CONC 33 G/DL (32-36); MEAN CORPUSCULAR VOLUME 87 FL (80-99); MEAN PLATELET VOLUME 10.1 FL (7.4-10.4); MONOCYTES # (AUTO) 0.6 X 10^3 (0.0-1.0); MONOCYTES % (AUTO) 7 % (0-12); NEUTROPHILS % (AUTO) 53 % (42-75); PLATELET COUNT 261 10^3/uL (130-400); RED CELL DISTRIBUTION WIDTH 12.7 % (10.0-14.5); WHITE BLOOD COUNT 9.5 10^3/uL (4.3-11.0)
[2018-12-02 05:34] LABS: ALANINE AMINOTRANSFERASE 43 U/L (0-55); ALBUMIN 3.4 GM/DL (3.2-4.5); ALKALINE PHOSPHATASE 72 U/L (40-136); BILIRUBIN,TOTAL 0.3 MG/DL (0.1-1.0); BUN/CREATININE RATIO 12; CALCIUM 8.2 MG/DL (8.5-10.1); CARBON DIOXIDE 25 MMOL/L (21-32); CHLORIDE 108 MMOL/L (98-107); CREATININE SERUM 0.65 MG/DL (0.60-1.30); GFR ESTIMATED > 60; GLUCOSE 104 MG/DL (70-105); POTASSIUM 4.1 MMOL/L (3.6-5.0); SODIUM 138 MMOL/L (135-145); TOTAL PROTEIN 5.6 GM/DL (6.4-8.2)
[2018-12-02] MEDS: CATHETER FLUSH 10 ML SYR IV SCH ×3 (07:05→20:39)
[2018-12-02] MEDS: KETOROLAC 15 MG/ML VIAL IV PRN ×2 (07:06→18:11)
--- NOTE | 2018-12-02 11:00 | NUR ---
Anointed to day by Fr Red Fabian.
[2018-12-02] MEDS: fentaNYL INJECTION 100 MCG/2 ML AMP IV PRN ×4 (11:06→22:00)
--- NOTE | 2018-12-02 13:21 | Progress Note ---
CISCO LOPEZ, 12/02/18 1321: Subjective Subjective/Events-last exam Pt seen and examined. She is feeling a bit better than yesterday, having a little nausea but no vomiting. Denies BM. Is not eating. She is on clear liquids but they make her want to vomit; she states she cannot. C/o abdominal pain that is localized around her umbilicus. Rates 6/10 on the pain scale and described as "stabbing". Pain meds help a bit but wear off quickly. Objective Exam Last Set of Vital Signs Vital Signs Date Time Temp Pulse Resp B/P (MAP) Pulse Ox O2 Delivery O2 Flow Rate FiO2 12/02/18 11:42 36.6 57 16 95/60 (72) 96 Room Air Capillary Refill : Less Than 3 Seconds I&O Intake and Output 12/02/18 00:00 Intake Total 120 ml Output Total 0 ml Balance 120 ml Intake Oral 120 ml Output Urine Total 0 ml # Voids 1 Daily Weight Change Unsure Unsure General: Alert, Oriented X3 Lungs: Clear to Auscultation, Normal Air Movement Heart: Regular Rate, No Murmurs Abdomen: Normal Bowel Sounds, Other (tenderness in LLQ) Extremities: Normal Pulses, No Tenderness/Swelling Results/Procedures Lab Laboratory Tests 12/02/18 04:29: White Blood Count 9.5, Red Blood Count 4.42, Hemoglobin 12.8, Hematocrit 38, Mean Corpuscular Volume 87, Mean Corpuscular Hemoglobin 29, Mean Corpuscular Hemoglobin Concent 33, Red Cell Distribution Width 12.7, Platelet Count 261, Mean Platelet Volume 10.1, Neutrophils (%) (Auto) 53, Lymphocytes (%) (Auto) 32, Monocytes (%) (Auto) 7, Eosinophils (%) (Auto) 8, Basophils (%) (Auto) 0, Neutrophils # (Auto) 5.0, Lymphocytes # (Auto) 3.0, Monocytes # (Auto) 0.6, Eosi nophils # (Auto) 0.8H, Basophils # (Auto) 0.0, Sodium Level 138, Potassium Level 4.1, Chloride Level 108H, Carbon Dioxide Level 25, Anion Gap 5, Blood Urea Nitrogen 8, Creatinine 0.65, Estimat Glomerular Filtration Rate > 60, BUN/Creatinine Ratio 12, Glucose Level 104, Calcium Level 8.2L, Corrected Calcium 8.7, Total Bilirubin 0.3, Aspartate Amino Transf (AST/SGOT) 37H, Alanine Aminotransferase (ALT/SGPT) 43, Alkaline Phosphatase 72, Total Protein 5.6L, Albumin 3.4 12/02/18 10:35: Microbiology 12/01/18 Urine Culture - Preliminary, Resulted Culture In Progress Assessment/Plan Assessment/Plan Assessment & Plan Assessment: 1. Nausea and vomiting 2. Generalized abdominal pain 3. Eosinophilia 4. Elevated LFTs Plan: 1. Continue Zofran and Phenergan for n/v. Keep on clear liquids as tolerated. 2. Consulted general surgery for pain. Surgery will perform EGD. Pt changed to NPO. 3. Parasite panel considered for unexplained eosinophilia. This could be causing her abdominal pain, nausea, and vomiting. 4. Hepatitis panels drawn (1) Intractable nausea and vomiting Status: Acute Assessment & Plan: Supportive care with IVF and antiemetics, unclear etiology. Possibly viral gastritis. (2) Abdominal pain Status: Acute Assessment & Plan: CT abdomen without GI pathology. RUQ ultrasound without liver or gall bladder abnormality. Consider HIDA outpatient, EGD. Qualifiers: Qualified Codes: R10.11 - Right upper quadrant pain (3) Ovarian cyst Status: Chronic Qualifiers: Qualified Codes: N83.201 - Unspecified ovarian cyst, right side; N83.202 - Unspecified ovarian cyst, left side (4) DVT prophylaxis Status: Acute Assessment & Plan: [facility] Clinical Quality Measures DVT/VTE Risk/Contraindication: Risk Factor Score Per Nursin RFS Level Per Nursing on Admit: 1=Low/No VTE PPX SARIAH FRY MD 12/02/18 1438: Assessment/Plan Assessment/Plan (1) Intractable nausea and vomiting Status: Acute Assessment & Plan: Supportive care with IVF and antiemetics, unclear etiology. Possibly viral gastritis. (2) Abdominal pain Status: Acute Assessment & Plan: CT abdomen without GI pathology. RUQ ultrasound without liver or gall bladder abnormality. Consider HIDA outpatient, EGD. 12/02 Worsening pain in spite of pain meds, will consult Surgery, possible inpatient EGD. Consider parasite testing given elevated eosinophils. Qualifiers: Qualified Codes: R10.11 - Right upper quadrant pain (3) DVT prophylaxis Status: Acute Assessment & Plan: [facility] [place] Supervisory-Addendum Brief Verification & Attestation Participated in pt care: history, MDM, physical Personally performed: exam, history, MDM Care discussed with: Medical Student Procedures: n/a Verification and Attestation of Medical Student E/M Service A medical student performed and documented this service in my presence. I reviewed and verified all information documented by the medical student and made modifications to such information, when appropriate. I personally performed the physical exam and medical decision making. See problem list for my assessment and plan. Sariah Fry, Dec 02, 2018,14:38 CISCO LOPEZ, Dec 02, 2018 13:21 SARIAH FRY MD Dec 02, 2018 14:38
--- NOTE | 2018-12-02 13:33 | Consultation - Surgery ---
ANGELO ISABEL,MED STUDENT 12/02/18 1332: History of Present Illness History of Present Illness Patient Consulted On(goran/time) 12/02/18 13:27 Date Seen by Provider: Dec 02, 2018 Time Seen by Provider: 13:00 History of Present Illness Surgical consult for Nausea/Vomiting HPI per ED: Patient presents with last day or so progressively worsening pain in her epigastric and right upper quadrant abdominal compartments with nausea but no vomiting. No fevers but she's had chills. No diarrhea had a bowel movement yesterday was normal. No history of early bowel, inflammatory bowel. She's had times one but no other surgeries. She is not on control or taking any routine medicines. Denies any history of medical problems. No dysuria. Patient states the illness began with a headache followed by nausea and some vomiting. She does note some bright red blood in her vomit. She has not had a bowel movement since Thursday but states she it typical very regular and has a stool every day. She states she began to notice black stools 2 weeks ago but denies any bright red blood in stool. she is having abdominal pain that is around the umbilicus and radiates to the back when it is at its worst. She states when she cam in her pain was a 10/10 and characterized as being "pushed into her insides". She states the pain is now better controlled with the pain medication. She denies any dysuria or frequency. The nausea is still present but she states she has not been able to vomit since last night. Allergies and Home Medications Allergies Coded Allergies: No Known Drug Allergies (Unverified , 05/18/15) Home Medications No Active Prescriptions or Reported Meds Past Jwdlyte-Sfjfyl-Jrolei Hx Patient Social History Alcohol Use: Denies Use Recreational Drug Use: No Smoking Status: Never a Smoker 2nd Hand Smoke Exposure: No Recent Foreign Travel: No Contact w/Someone Who Travel: No Recent Infectious Disease Expo: No Recent Hopitalizations: No Immunizations Up To Date Date of Influenza Vaccine: Nov 17, 2018 Seasonal Allergies Seasonal Allergies: No Surgeries History of Surgeries: Yes Surgeries: Section (03/2017) Respiratory History of Respiratory Disorde: No Cardiovascular History of Cardiac Disorders: No Neurological History of Neurological Disord: No Reproductive System Hx Reproductive Disorders: No Sexually Transmitted Disease: No HIV/AIDS: No Female Reproductive Disorders: Ovarian Cyst (bilateral) Genitourinary History of Genitourinary Disor: No Gastrointestinal History of Gastrointestinal Di: No Musculoskeletal History of Musculoskeletal Dis: No Endocrine History of Endocrine Disorders: No HEENT History of HEENT Disorders: No Loss of Vision: Denies Hearing Impairment: Denies Cancer History of Cancer: No Psychosocial History of Psychiatric Problem: No Integumentary History of Skin or Integumenta: No Blood Transfusions History of Blood Disorders: No Adverse Reaction to a Blood Tr: No Family Medical History Significant Family History: Cancer (mother, unsure type) Family Medial History: Patient reports no known family medical history. Review of Systems-General Constitutional: chills; No fever EENTM: No blurred vision, No throat pain Respiratory: No cough, No short of breath Cardiovascular: No chest pain, No edema Gastrointestinal: abdominal pain (periumbilical), constipation; No diarrhea; hematemesis; No heartburn; melena, nausea, vomiting Genitourinary: No decreased output, No dysuria, No frequency Musculoskeletal: back pain; No joint pain Skin: No change in hair/nails, No rash Psychiatric/Neurological: Headache, Weakness Other no history of easy bleeding or bruising Physical Exam-General Problems Physical Exam Vital Signs Vital Signs - First Documented 12/01/18 08:05 Temp 37.1 Pulse 107 Resp 16 B/P (MAP) 130/99 (109) Pulse Ox 98 O2 Delivery Room Air Capillary Refill : Less Than 3 Seconds General Appearance: WD/WN, no apparent distress Eyes: Bilateral Eye PERRL, Bilateral Eye EOMI HEENT: PERRL/EOMI, other (mucous membrances moist) Respiratory: chest non-tender, lungs clear, normal breath sounds Cardiovascular: regular rate, rhythm Peripheral Pulses: 2+ Radial Pulses (R), 2+ Radial Pulses (L) Gastrointestinal: normal bowel sounds, soft; No distended; guarding (involuntary at epigastric); No rebound; tenderness Extremities: no pedal edema, no calf tenderness Neurologic/Psychiatric: alert, oriented x 3 Skin: normal color, warm/dry Lymphatic: no adenopathy Data Review Labs Laboratory Tests 12/02/18 04:29: White Blood Count 9.5, Red Blood Count 4.42, Hemoglobin 12.8, Hematocrit 38, Mean Corpuscular Volume 87, Mean Corpuscular Hemoglobin 29, Mean Corpuscular Hemoglobin Concent 33, Red Cell Distribution Width 12.7, Platelet Count 261, Mean Platelet Volume 10.1, Neutrophils (%) (Auto) 53, Lymphocytes (%) (Auto) 32, Monocytes (%) (Auto) 7, Eosinophils (%) (Auto) 8, Basophils (%) (Auto) 0, Neutrophils # (Auto) 5.0, Lymphocytes # (Auto) 3.0, Monocytes # (Auto) 0.6, Eosinophils # (Auto) 0.8H, Basophils # (Auto) 0.0, Sodium Level 138, Potassium Level 4.1, Chloride Level 108H, Carbon Dioxide Level 25, Anion Gap 5, Blood Urea Nitrogen 8, Creatinine 0.65, Estimat Glomerular Filtration Rate > 60, BUN/Creatinine Ratio 12, Glucose Level 104, Calcium Level 8.2L, Corrected Calcium 8.7, Total Bilirubin 0.3, Aspartate Amino Transf (AST/SGOT) 37H, Alanine Aminotransferase (ALT/SGPT) 43, Alkaline Phosphatase 72, Total Protein 5.6L, Albumin 3.4 12/02/18 10:35: Microbiology 12/01/18 Urine Culture - Preliminary, Resulted Culture In Progress Radiology Abdomen/Pelvis CT: IMPRESSION: 1. There is still no evidence for acute appendicitis. 2. There are bilateral ovarian cysts. 3. There is no acute abnormality of the abdomen and pelvis noted otherwise. Assessment/Plan Assessment/Plan Assessment/Plan Hematemesis Nausea/Vomiting Constipation Continue antiemetics and pain control as needed. Discussed need for EGD due to epigastric pain and hematemesis. Risk and benefits discussed. She has been NPO since early this morning Clinical Quality Measures DVT/VTE Risk/Contraindication: Risk Factor Score Per Nursin RFS Level Per Nursing on Admit: 1=Low/No VTE PPX CHANO MOREL DO 12/02/18 1631: History of Present Illness History of Present Illness Time Seen by Provider: 16:01 History of Present Illness Pt stated she just got some pulsing pain in RUQ. Last time she vomited blood was last night. Allergies and Home Medications Allergies Coded Allergies: No Known Drug Allergies (Unverified , 05/18/15) Home Medications No Active Prescriptions or Reported Meds Patient Home Medication List Home Medication List Reviewed: Yes Past Ryvgflt-Fssrtx-Wamrlt Hx Family Medical History Family Medial History: Patient reports no known family medical history. Assessment/Plan Assessment/Plan Assessment/Plan Plan to do EGD tonight to look at stomach; discussed risks and complications with pt (using global logistics manager) all questions answered to her satisfaction. CT showed increase in ovarian cysts, but no other acute process. Probably can go home tomorrow if we don't find anything. Supervisory-Addendum Brief Verification & Attestation Participated in pt care: history, MDM, physical Personally performed: exam, history, MDM Care discussed with: Medical Student Procedures: n/a Verification and Attestation of Medical Student E/M Service A medical student performed and documented this service in my presence. I reviewed and verified all information documented by the medical student and made modifications to such information, when appropriate. I personally performed the physical exam and medical decision making. Chano Morel, Dec 02, 2018,16:31 ANGELO ISABEL,MED STUDENT Dec 02, 2018 13:32 CHANO MOREL DO Dec 02, 2018 16:31
[2018-12-02] MEDS ORDERED: HURRICAINE EXT TUBE (BENZOCAINE) ONE (19:14)
[2018-12-02] MEDS ORDERED: LACTATED RINGERS 1,000 ML IV ONE (19:18)
[2018-12-02] MEDS ORDERED: LACTATED RINGERS 1,000 ML IV STA (19:30)
[2018-12-02] MEDS ORDERED: HURRICAINE EXT TUBE (BENZOCAINE) XX PRN (19:30)
[2018-12-02] MEDS ORDERED: proPOfol 200 MG/20 ML (DIPRIVAN) VIAL IV ONE (19:48)
--- NOTE | 2018-12-02 20:09 | Progress Note-Post Operative ---
Post-Operative Progess Note Surgeon (s)/Hvac Service Manager (s) Surgeon TOMAS BOWERS DO Hvac Service Manager: none Pre-Operative Diagnosis Hematemesis, Abd pain Post-Operative Diagnosis Same plus Hiatal hernia Gastritis Duodenitis Esophagitis Procedure & Operative Findings Date of Procedure 12/02/18 Procedure Performed/Findings EGD with bx Anesthesia Type IV sedation by SCREEN MAKING TECHNICIAN Estimated Blood Loss Estimated blood loss (mL): scant Specimens/Packing Specimens Removed duodenal bx antral bx Body of stomach bx GE jxn bx TOMAS BOWERS DO Dec 02, 2018 20:09
--- NOTE | 2018-12-02 20:18 | Anesthesia-General Post-Op ---
MAC Patient Condition Mental Status/LOC: Same as Preop Cardiovascular: Satisfactory Nausea/Vomiting: Absent Respiratory: Satisfactory Pain: Controlled Complications: Absent Post Op Complications Complications None Follow Up Care/Instructions Patient Instructions None needed. Anesthesiology Discharge Order Discharge Order Patient is doing well, no complaints, stable vital signs, no apparent adverse anesthesia problems. No complications reported per nursing. RIANA MENDOZA CRNA Dec 02, 2018 20:18
[2018-12-02 22:04] LABS: HEPATITIS C ANTIBODY C Non-Reactive (Non-Reactive)
[2018-12-03 00:06] VITALS: BP 107/70
--- NOTE | 2018-12-03 01:16 | OPERATIVE REPORT ---
DATE OF SERVICE: 12/02/2018 PREOPERATIVE DIAGNOSES: 1. Hematemesis. 2. Abdominal pain. POSTOPERATIVE DIAGNOSES: 1. Hematemesis. 2. Abdominal pain. 3. Hiatal hernia. 4. Gastritis. 5. Duodenitis. 6. Esophagitis. PROCEDURE: EGD with biopsy. SURGEON: Chano Morel D.O. ELEVATOR DISPATCHER: None. ANESTHESIA: IV sedation by WRITER PRODUCER. SPECIMEN: Biopsy from the duodenum, one biopsy from antrum, one biopsy from body of stomach, one biopsy from GE junction. BLOOD LOSS: Scant. FLUIDS: Per anesthesia. POSTOPERATIVE CONDITION: Stable. INDICATION FOR PROCEDURE: The patient is a 33-year-old female who has been having abdominal pain, basically not getting any better, had an episode of hematemesis. CAT scan basically did not show any except for some increased ovarian cysts. No acute processes, needed an EGD for workup. FINDINGS: The patient had some areas in the duodenum, which looked like villi was missing, possibly ulcers. She had some blood in the stomach and severe inflammation. Picture was taken and biopsy done. She also had some creeping up of the Z line at the GE junction. PROCEDURE NOTE: After informed consent was obtained, the patient was brought to the endoscopy suite and placed in the left lateral decubitus position. She was administered IV sedation by the WRITER PRODUCER, who monitored her vitals the entire time, heart rate, blood pressure and pulse ox and the scope was inserted down the mouth through the esophagus into the stomach, pushed towards the antrum, saw some gastritis, pushed into the duodenum and duodenum looked like there was a little bit of duodenitis and then areas almost looked like villi missing from the small intestine like ulcers, did a biopsy of one of these areas, then pulled the scope back into the antrum and did a biopsy of the antrum. Retroflexed the scope, saw some more gastritis, looked like almost bleeding tracts, took a picture of this, looked like she had a small hiatal hernia. A picture of this was taken as well. Did a biopsy of the body of stomach and then pulled into the GE junction, saw some creeping up of the Z line, did a biopsy here, may have some minimal esophagitis and then pulled the scope up the esophagus and out the mouth. The patient tolerated the procedure and she was recovered in endoscopy suite. Job ID: [id number] DocumentID: [id number] Dictated Date: 12/02/2018 20:10:04 Client Support Representative Date: 12/03/2018 01:15:04 Dictated By: CHANO MOREL DO
[2018-12-03 04:34] VITALS: BP 105/69
[2018-12-03] MEDS: CATHETER FLUSH 10 ML SYR IV SCH (05:57)
[2018-12-03] MEDS: fentaNYL INJECTION 100 MCG/2 ML AMP IV PRN (05:57)
[2018-12-03 06:05] LABS: BASOPHILS % (AUTO) 0 % (0-10); EOSINOPHILS # (AUTO) 0.7 10^3/uL (0.0-0.3); EOSINOPHILS % (AUTO) 8 % (0-10); HEMATOCRIT 39 % (35-52); HEMOGLOBIN 12.7 G/DL (11.5-16.0); LYMPHOCYTES # (AUTO) 3.5 X 10^3 (1.0-4.0); LYMPHOCYTES % (AUTO) 40 % (12-44); MEAN CORPUSCULAR HEMOGLOBIN 29 PG (25-34); MEAN CORPUSCULAR HGB CONC 33 G/DL (32-36); MEAN CORPUSCULAR VOLUME 87 FL (80-99); MEAN PLATELET VOLUME 10.1 FL (7.4-10.4); MONOCYTES # (AUTO) 0.5 X 10^3 (0.0-1.0); MONOCYTES % (AUTO) 6 % (0-12); NEUTROPHILS % (AUTO) 46 % (42-75); PLATELET COUNT 290 10^3/uL (130-400); RED CELL DISTRIBUTION WIDTH 12.9 % (10.0-14.5); WHITE BLOOD COUNT 8.6 10^3/uL (4.3-11.0)
[2018-12-03 06:26] LABS: ALANINE AMINOTRANSFERASE 43 U/L (0-55); ALBUMIN 3.3 GM/DL (3.2-4.5); ALKALINE PHOSPHATASE 62 U/L (40-136); BILIRUBIN,TOTAL 0.5 MG/DL (0.1-1.0); BUN/CREATININE RATIO 16; CALCIUM 8.6 MG/DL (8.5-10.1); CARBON DIOXIDE 24 MMOL/L (21-32); CHLORIDE 107 MMOL/L (98-107); CREATININE SERUM 0.62 MG/DL (0.60-1.30); GFR ESTIMATED > 60; GLUCOSE 79 MG/DL (70-105); POTASSIUM 3.6 MMOL/L (3.6-5.0); SODIUM 140 MMOL/L (135-145); TOTAL PROTEIN 6.1 GM/DL (6.4-8.2)
[2018-12-03 08:00] VITALS: BP 98/63
[2018-12-03] MEDS ORDERED: PANTOPRAZOLE 40 MG (PROTONIX) VIAL IV SCH (09:00)
--- NOTE | 2018-12-03 09:47 | Progress Note - Surgery ---
Subjective Time Seen by a Provider: 09:18 Subjective/Events-last exam Pt seen and examined, states minimal pain. Tolerating clears and would like to go home. Review of Systems General: No Chills, No Night Sweats Pulmonary: No Dyspnea, No Cough Cardiovascular: No: Chest Pain, Palpitations Gastrointestinal: Abdominal Pain (minimal, better than yesterday ); No: Nausea, Vomiting Objective Exam Vital Signs Date Time Temp Pulse Resp B/P (MAP) Pulse Ox O2 Delivery O2 Flow Rate FiO2 12/03/18 08:00 37.3 70 16 98/63 (75) 97 Room Air 12/03/18 04:34 37.1 68 16 105/69 (81) 98 Room Air 12/03/18 00:06 36.6 58 16 107/70 (82) 97 Room Air 12/02/18 20:40 Room Air 12/02/18 20:25 37.4 71 20 121/84 (96) 98 Room Air 12/02/18 20:10 68 16 100 Room Air 12/02/18 20:05 69 16 100 Room Air 12/02/18 15:50 36.6 68 18 87/58 (68) 98 Room Air 12/02/18 11:42 36.6 57 16 95/60 (72) 96 Room Air I & O 12/03/18 07:00 Intake Total 650 ml Output Total 0 ml Balance 650 ml Capillary Refill : Less Than 3 Seconds General Appearance: No Apparent Distress, WD/WN Respiratory: Chest Non Tender, Lungs Clear, Normal Breath Sounds, No Accessory Muscle Use, No Respiratory Distress Cardiovascular: Regular Rate, Rhythm, No Murmur Peripheral Pulses: 2+ Radial Pulses (R), 2+ Radial Pulses (L) Gastrointestinal: normal bowel sounds, soft; No distended, No rebound; tenderness (minimal upper abdomen) Neurologic/Psychiatric: Alert, Oriented x3 Results Lab Laboratory Tests 12/02/18 10:35: Hepatitis A IgM Antibody Non-Reactive, Hepatitis B Surface Antigen Non-Reactive, Hepatitis B Core IgM Antibody Non-Reactive, Hepatitis C Antibody Non-Reactive 12/03/18 05:25: White Blood Count 8.6, Red Blood Count 4.43, Hemoglobin 12.7, Hematocrit 39, Mean Corpuscular Volume 87, Mean Corpuscular Hemoglobin 29, Mean Corpuscular Hemoglobin Concent 33, Red Cell Distribution Width 12.9, Platelet Count 290, Mean Platelet Volume 10.1, Neutrophils (%) (Auto) 46, Lymphocytes (%) (Auto) 40, Monocytes (%) (Auto) 6, Eosinophils (%) (Auto) 8, Basophils (%) (Auto) 0, Neutrophils # (Auto) 4.0, Lymphocytes # (Auto) 3.5, Monocytes # (Auto) 0.5, Eosinophils # (Auto) 0.7H, Basophils # (Auto) 0.0, Sodium Level 140, Potassium Level 3.6, Chloride Level 107, Carbon Dioxide Level 24, Anion Gap 9, Blood Urea Nitrogen 10, Creatinine 0.62, Estimat Glomerular Filtration Rate > 60, BUN/Creatinine Ratio 16, Glucose Level 79, Calcium Level 8.6, Corrected Calcium 9.2, Total Bilirubin 0.5, Aspartate Amino Transf (AST/SGOT) 27, Alanine Aminotransferase (ALT/SGPT) 43, Alkaline Phosphatase 62, Total Protein 6.1L, Albumin 3.3 Microbiology 12/01/18 Urine Culture - Final, Complete 3 or more isolates Strep, Beta Hemolytic Group B Assessment/Plan Assessment/Plan Assessment/Plan Abdominal pain Gastritis Duodenitis Esophagitis EGD done and biopsies obtained. Pt can be sent home and follow up in my office in a week. Clinical Quality Measures DVT/VTE Risk/Contraindication: Risk Factor Score Per Nursin RFS Level Per Nursing on Admit: 1=Low/No VTE PPTOMAS GARCIA DO Dec 03, 2018 09:47
--- NOTE | 2018-12-03 09:49 | Endoscopy Discharge Instruct ---
Endo Procedure/Findings Findings 1.: Gastritis 2.: Other Findings (Esophagitis, Duodenitis) Discharge Instructions - Activity: You might feel a little sleepy until tomorrow. This is due to the medicine you received to relax you. Until tomorrow, you should: NOT drive a car, operate machinery or power tools. NOT drink any alcoholic beverages. NOT make any important decisions or sign importortant papers. Do not return to work until tomorrow, unless otherwise instructed. Resume previous activities tomorrow. Diet: Start by taking liquids. If you tolerate liquids, advance to solid food. Make an appointment for one week, 1.: EGD in 1 year Notify Physician - If you experience excessive bleeding, unusual abdominal pain, fever, or chest pain, contact your doctor immediately. TOMAS BOWERS DO Dec 03, 2018 09:49
[2018-12-03] MEDS ORDERED: SUCR1TAB PO (10:39)
[2018-12-03] MEDS ORDERED: PANT40TA3 PO (10:39)
[2018-12-03] MEDS ORDERED: TRAM50TA2 PO (10:39)
--- NOTE | 2018-12-03 10:42 | Discharge Instructions ---
Discharge [facility] Discharge Medications New, Converted or Re-Newed RX: Transmitted to Pharmacy (Tramadol on chart) New Medications: Pantoprazole Sodium (Pantoprazole Sodium) 40 Mg Tablet.dr 40 MG PO DAILY, #30 TAB 0 Refills Tramadol HCl (Tramadol HCl) 50 Mg Tablet 50 MG PO Q4H PRN for PAIN-SEVERE, #15 TAB 0 Refills Sucralfate (Sucralfate) 1 Gm Tablet 1 GM PO ACHS, #120 TAB 0 Refills Patient Instructions Goal/Follow Up Appt: Follow up with Camille Mcadams APRN at [facility] on 12/06 at 11:20 am. Activity & Diet Discharge Diet: No Restrictions Activity as Tolerated: Yes MELVIN COHEN MD Dec 03, 2018 10:42
[2018-12-03] MEDS ORDERED: SUCRALFATE 1 GM (CARAFATE) TAB PO SCH (11:00)
[2018-12-03 11:44] VITALS: BP 98/63
--- NOTE | 2018-12-03 11:45 | NUR ---
JAGDISH CR demonstrates understanding of discharge instructions and accurately returns instructions upon questioning. Copy of Post-Discharge Instructions and Medication Discharge Instructions given to PT. JAGDISH CR is able to manage continuing needs after discharge. Patients belongings returned to PT. Skin dry and intact; no breakdown noted. Patient discharged from [facility] on 12/03/18 at 1045. JAGDISH CR left floor via WC, accompanied by STAFF AND . Addendum: 12/03/18 at 1211 by CHICHI PICKENS RN Discharge date and time: 12/03/2018 at 1145.
--- NOTE | 2018-12-03 17:07 | Discharge Summary ---
Discharge Summary Hospital Course Problems/Diagnosis: (1) Intractable nausea and vomiting Status: Resolved Resolution Date/Time: 12/03/18 @ 17:03 Assessment & Plan: Supportive care with IVF and antiemetics, unclear etiology. EGD done and showed gastritis, esophagitis, possible ulcer, started on pantoprazole and carafate, discussed avoidance of NSAIDs, caffeine, spicy foods, alcohol, smoking (2) Abdominal pain Status: Acute Assessment & Plan: CT abdomen without GI pathology. RUQ ultrasound without liver or gall bladder abnormality. Consider HIDA outpatient, EGD. 12/02 Worsening pain in spite of pain meds, will consult Surgery, possible inpatient EGD. Consider parasite testing given elevated eosinophils. 12/03 significant gastritis/esophagitis with blood in stomach on EGD, started PPI and carafate. Qualifiers: Qualified Codes: R10.11 - Right upper quadrant pain (3) Ovarian cyst Status: Chronic Assessment & Plan: Recommended repeat ultrasound if she has lower abdominal pain that persists, especially after treatment of above issues. Qualifiers: Qualified Codes: N83.201 - Unspecified ovarian cyst, right side; N83.202 - Unspecified ovarian cyst, left side Hospital Course Date of Admission: Dec 01, 2018 at 12:12 Admission Diagnosis : Family Physician/Provider: [place] [place] Date of Discharge: 12/03/18 Discharge Diagnosis: See problems Hospital Course: See above Labs and Pending Lab Test: Laboratory Tests 12/03/18 05:25: White Blood Count 8.6, Red Blood Count 4.43, Hemoglobin 12.7, Hematocrit 39, Mean Corpuscular Volume 87, Mean Corpuscular Hemoglobin 29, Mean Corpuscular Hemoglobin Concent 33, Red Cell Distribution Width 12.9, Platelet Count 290, Mean Platelet Volume 10.1, Neutrophils (%) (Auto) 46, Lymphocytes (%) (Auto) 40, Monocytes (%) (Auto) 6, Eosinophils (%) (Auto) 8, Basophils (%) (Auto) 0, Neutrophils # (Auto) 4.0, Lymphocytes # (Auto) 3.5, Monocytes # (Auto) 0.5, Eosinophils # (Auto) 0.7H, Basophils # (Auto) 0.0, Sodium Level 140, Potassium Level 3.6, Chloride Level 107, Carbon Dioxide Level 24, Anion Gap 9, Blood Urea Nitrogen 10, Creatinine 0.62, Estimat Glomerular Filtration Rate > 60, BUN/Creatinine Ratio 16, Glucose Level 79, Calcium Level 8.6, Corrected Calcium 9.2, Total Bilirubin 0.5, Aspartate Amino Transf (AST/SGOT) 27, Alanine Aminotransferase (ALT/SGPT) 43, Alkaline Phosphatase 62, Total Protein 6.1L, Albumin 3.3 Microbiology 12/01/18 Urine Culture - Final, Complete 3 or more isolates Strep, Beta Hemolytic Group B Home Meds Active Tramadol HCl 50 Mg Tablet 50 Mg PO Q4H PRN Pantoprazole Sodium 40 Mg Tablet.dr 40 Mg PO DAILY Sucralfate 1 Gm Tablet 1 Gm PO ACHS Assessment/Pt DC Instructions See above Discharge Physical Examination Allergies: Coded Allergies: No Known Drug Allergies (Unverified , 05/18/15) General Appearance: No Apparent Distress, WD/WN Respiratory: Lungs Clear, Normal Breath Sounds Cardiovascular: Regular Rate, Rhythm, No Murmur Gastrointestinal: Normal Bowel Sounds, Soft, Other (mild epigastric ttp, much improved from yesterday) Extremity: No Pedal Edema Neurologic/Psychiatric: Alert, No Motor/Sensory Deficits Copy Copies To 1: Camille Mcadams APRN Discharge Summary Date of Admission Dec 01, 2018 at 12:12 Date of Discharge Dec 03, 2018 at 11:45 Discharge Date: Dec 03, 2018 Clinical Quality Measures DVT/VTE Risk/Contraindication: Risk Factor Score Per Nursin RFS Level Per Nursing on Admit: 1=Low/No VTE PPX MELVIN COHEN MD Dec 03, 2018 17:07
== END 2018-12-03 10:41 | disposition home or self-care (01) ==
LOC: EDUNIT# 08:00 → ER 08:01 → 4TH 12:12 → UNDOADMOB 12:12 → SDC 12:30 → 4TH 12:30 → SDC 12-03 10:41 → UNDODISOB 12-03 11:45
PROVIDERS: ATTEND Family Medicine
DX: K21.0 Gastro-esophageal reflux disease with esophagitis (principal); K29.30 Chronic superficial gastritis without bleeding; K29.80 Duodenitis without bleeding; K44.9 Diaphragmatic hernia without obstruction or gangrene; K92.0 Hematemesis; N83.202 Unspecified ovarian cyst, left side; N83.201 Unspecified ovarian cyst, right side; Z79.899 Other long term (current) drug therapy
CPT/HCPCS: 36415; 74177; 76705; 80053; 80074; 81000; 83690; 84484; 84703; 85025; 87077; 87088; 88305; 88342; 93005; 96361; 96374; 96375; 96376; G0378

== ENCOUNTER 2018-12-21 10:44 | Observation (INO) | payer OTHER ==
[~2018-12-21] VITALS: Ht 142 cm; Wt 60.9 kg
[~2018-12-21 10:44] MED LIST changes: +PANT40TA3 PO; +SUCR1TAB PO; +TRAM50TA2 PO
--- NOTE | 2018-12-21 12:16 | NUR ---
IS ASKING THAT I GIVE HER SOMETHING FOR PAIN. NOTIFIED I COULD NOT GIVE ANYTHING UNTIL THE DR HAS SEEN HER AND HAS IT ORDERED.
--- NOTE | 2018-12-21 12:45 | ED Abdominal Pain ---
General Chief Complaint: Abdominal/GI Problems Stated Complaint: ABD PAIN Nursing Triage Note: ABD PAIN WITH NAUSEA X2 DAYS. HX OF STOMACH ULCERS. 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 of Information: Patient, Family Exam Limitations: Language Barrier History of Present Illness Date Seen by Provider: Dec 21, 2018 Time Seen by Provider: 12:42 Initial Comments This 33-year-old 1 female presents with a complaint of persistent epigastric pain with associated nausea and vomiting. The patient has been evaluated frequently during the month and said go with findings of a peptic ulcer. She has however not improved with a proton pump inhibitor and Carafate. The patient denies hematemesis, black or tarry stools, associated shortness of breath, chest pain, dysuria or frequency, remarkable radiation of the epigastric pain, for similar episodes before in the past month. Allergies and Home Medications Allergies Coded Allergies: No Known Drug Allergies (Unverified , 05/18/15) Home Medications Pantoprazole Sodium 40 Mg Tablet.dr, 40 MG PO DAILY Prescribed by: MELVIN COHEN on 12/03/18 1039 Sucralfate 1 Gm Tablet, 1 GM PO ACHS Prescribed by: MELVIN COHEN on 12/03/18 1039 Patient Home Medication List Home Medication List Reviewed: Yes Review of Systems Review of Systems Constitutional: No chills, No fever EENTM: No Blurred Vision Respiratory: Denies Cough Cardiovascular: Denies Chest Pain, Denies Palpitations Gastrointestinal: Abdominal Pain; Denies Diarrhea; Nausea, Vomiting Genitourinary: Denies Burning, Denies Frequency Musculoskeletal: No back pain Skin: No change in color, No rash Psychiatric/Neurological: No Symptoms Reported Endocrine: No Symptoms Reported Hematologic/Lymphatic: No Symptoms Reported Past [id number] Hx Past Med/Social Hx: Reviewed Nursing Past Med/Soc Hx Patient Social History 2nd Hand Smoke Exposure: No Recent Foreign Travel: No Contact w/Someone Who Travel: No Recent Infectious Disease Expo: No Recent Hopitalizations: No Immunizations Up To Date Date of Influenza Vaccine: Nov 17, 2018 Seasonal Allergies Seasonal Allergies: No Past Medical History Surgeries: Yes Section Respiratory: No Cardiac: No Neurological: No : No Reproductive Disorders: No 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 Cancer Physical Exam Vital Signs Vital Signs - First Documented 12/21/18 12:05 Temp 37.0 Pulse 78 Resp 16 B/P (MAP) 126/63 (84) Pulse Ox 97 O2 Delivery Room Air Capillary Refill : Less Than 3 Seconds Height/Weight/BMI Height: 4'11.00" Weight: 134lbs. 0oz. 60.501430pb; 34.00 BMI Method:Actual General Appearance: WD/WN, mild distress HEENT: normal ENT inspection Neck: full range of motion, normal inspection Respiratory: normal breath sounds Cardiovascular: regular rate, rhythm Gastrointestinal: abnormal bowel sounds (hypoactive), tenderness (in the epigastric region) Extremities: normal range of motion, non-tender, normal inspection Back: normal inspection Neurologic/Psychiatric: no motor/sensory deficits, alert, normal mood/affect Skin: normal color, warm/dry Progress/Results/Core Measures Results/Orders Lab Results Laboratory Tests Test 12/21/18 12:40 12/21/18 13:30 Range/Units White Blood Count 12.6 H 4.3-11.0 10^3/uL Red Blood Count 5.08 4.35-5.85 10^6/uL Hemoglobin 14.3 11.5-16.0 G/DL Hematocrit 43 35-52 % Mean Corpuscular Volume 85 80-99 FL Mean Corpuscular Hemoglobin 28 25-34 PG Mean Corpuscular Hemoglobin Concent 33 32-36 G/DL Red Cell Distribution Width 12.9 10.0-14.5 % Platelet Count 412 H 130-400 10^3/uL Mean Platelet Volume 9.8 7.4-10.4 FL Neutrophils (%) (Auto) 73 42-75 % Lymphocytes (%) (Auto) 19 12-44 % Monocytes (%) (Auto) 5 0-12 % Eosinophils (%) (Auto) 3 0-10 % Basophils (%) (Auto) 0 0-10 % Neutrophils # (Auto) 9.3 H 1.8-7.8 X 10^3 Lymphocytes # (Auto) 2.4 1.0-4.0 X 10^3 Monocytes # (Auto) 0.7 0.0-1.0 X 10^3 Eosinophils # (Auto) 0.3 0.0-0.3 10^3/uL Basophils # (Auto) 0.0 0.0-0.1 10^3/uL Sodium Level 139 135-145 MMOL/L Potassium Level 3.9 3.6-5.0 MMOL/L Chloride Level 105 98-107 MMOL/L Carbon Dioxide Level 23 21-32 MMOL/L Anion Gap 11 5-14 MMOL/L Blood Urea Nitrogen 11 7-18 MG/DL Creatinine 0.71 0.60-1.30 MG/DL Estimat Glomerular Filtration Rate > 60 BUN/Creatinine Ratio 15 Glucose Level 104 70-105 MG/DL Calcium Level 9.6 8.5-10.1 MG/DL Corrected Calcium 9.3 8.5-10.1 MG/DL Total Bilirubin 0.5 0.1-1.0 MG/DL Aspartate Amino Transf (AST/SGOT) 20 5-34 U/L Alanine Aminotransferase (ALT/SGPT) 28 0-55 U/L Alkaline Phosphatase 88 40-136 U/L Total Protein 8.0 6.4-8.2 GM/DL Albumin 4.4 3.2-4.5 GM/DL Lipase 12 8-78 U/L Urine Color YELLOW Urine Clarity CLEAR Urine pH 7 5-9 Urine Specific [place] 1.010 L 1.016-1.022 Urine Protein NEGATIVE NEGATIVE Urine Glucose (UA) NEGATIVE NEGATIVE Urine Ketones NEGATIVE NEGATIVE Urine Nitrite NEGATIVE NEGATIVE Urine Bilirubin NEGATIVE NEGATIVE Urine Urobilinogen NORMAL NORMAL MG/DL Urine Leukocyte Esterase 1+ H NEGATIVE Urine RBC (Auto) NEGATIVE NEGATIVE Urine RBC 0-2 /HPF Urine WBC 5-10 H /HPF Urine Squamous Epithelial Cells 5-10 /HPF Urine Crystals NONE /LPF Urine Bacteria FEW H /HPF Urine Casts NONE /LPF Urine Mucus MODERATE H /LPF Urine Culture Indicated YES My Orders Orders - HOLLY ALVAREZ MD Ondansetron Injection (Zofran Injectio (12/21/18 13:00) Morphine Injection (Morphine Injection (12/21/18 12:50) Ns Iv 1000 Ml (Sodium Chloride 0.9%) (12/21/18 13:00) Cbc With Automated Diff (12/21/18 12:51) Comprehensive Metabolic Panel (12/21/18 12:51) Lipase (12/21/18 12:51) Ua Culture If Indicated (12/21/18 12:51) Ct Abdomen/Pelvis Wo (12/21/18 12:53) Lidocaine 2% Viscous 15 Ml (Xylocaine Vi (12/21/18 13:15) Antacid Suspension (Mylanta Suspension (12/21/18 13:15) Morphine Injection (Morphine Injection (12/21/18 14:20) Urine Culture (12/21/18 13:30) Promethazine Injection (Phenergan Injec (12/21/18 14:45) Medications Given in ED Current Medications Medications Dose Ordered Sig/Luz Elena Route Start Time Stop Time Status Last Admin Dose Admin Al Hydrox/Mg Hydrox/Simethicone 30 ml ONCE ONCE PO 12/21/18 13:15 12/21/18 13:16 DC 12/21/18 13:16 30 ML Lidocaine HCl 5 ml ONCE ONCE PO 12/21/18 13:15 12/21/18 13:16 DC 12/21/18 13:16 5 ML Ondansetron HCl 4 mg ONCE ONCE IVP 12/21/18 13:00 12/21/18 13:01 DC 12/21/18 13:14 4 MG Promethazine HCl 25 mg ONCE ONCE IVP 12/21/18 14:45 12/21/18 14:46 DC 12/21/18 14:45 25 MG Vital Signs/I&O 12/21/18 12:05 Temp 37.0 Pulse 78 Resp 16 B/P (MAP) 126/63 (84) Pulse Ox 97 O2 Delivery Room Air Blood Pressure Mean: 84 Progress Progress Note : Time: 15:[address] of the abdomen and pelvis was unremarkable. Laboratory evaluation including CBC and complete metabolic panel and lipase were normal. The patient failed to respond to antiemetics and pain medication. Patient was given IV Zofran and fentanyl and continued to have severe epigastric pain and vomiting. Patient was given morphine and Phenergan and had no significant relief of her pain or nausea. I discussed with Dr. Morel the patient's presentation. He recommended patient be admitted for EGD in the morning. Dr. Tsagn was kind enough to admit the patient to an observation bed. Departure Communication (Admissions) Time/Spoke to Admitting Phy: 15:12 Dr. Tsang Time/Spoke to Consulting Phy: 15:13 Dr. Morel Impression Primary Impression: Nausea and vomiting Qualified Codes: R11.2 - Nausea with vomiting, unspecified Additional Impression: Abdominal pain Qualified Codes: R10.10 - Upper abdominal pain, unspecified Disposition: 09 ADMITTED INPATIENT Condition: Unchanged Admissions Decision to Admit Reason: Admit from ER (General) Decision to Admit/Date: Dec 21, 2018 Time/Decision to Admit Time: 15:12 Departure-Patient Inst. Referrals: [facility] [place] ([place]P/Family) Primary Care Physician HOLLY ALVAREZ MD Dec 21, 2018 12:45
[2018-12-21] MEDS ORDERED: morphine INJ 10 MG/ML 1ML (SYR OR VIAL) IVP STA ×2 (12:50→14:20)
[2018-12-21 13:00] LABS: BASOPHILS % (AUTO) 0 % (0-10); EOSINOPHILS # (AUTO) 0.3 10^3/uL (0.0-0.3); EOSINOPHILS % (AUTO) 3 % (0-10); HEMATOCRIT 43 % (35-52); HEMOGLOBIN 14.3 G/DL (11.5-16.0); LYMPHOCYTES # (AUTO) 2.4 X 10^3 (1.0-4.0); LYMPHOCYTES % (AUTO) 19 % (12-44); MEAN CORPUSCULAR HEMOGLOBIN 28 PG (25-34); MEAN CORPUSCULAR HGB CONC 33 G/DL (32-36); MEAN CORPUSCULAR VOLUME 85 FL (80-99); MEAN PLATELET VOLUME 9.8 FL (7.4-10.4); MONOCYTES # (AUTO) 0.7 X 10^3 (0.0-1.0); MONOCYTES % (AUTO) 5 % (0-12); NEUTROPHILS # (AUTO) 9.3 X 10^3 (1.8-7.8); NEUTROPHILS % (AUTO) 73 % (42-75); PLATELET COUNT 412 10^3/uL (130-400); RED CELL DISTRIBUTION WIDTH 12.9 % (10.0-14.5); WHITE BLOOD COUNT 12.6 10^3/uL (4.3-11.0)
[2018-12-21] MEDS ORDERED: ONDANSETRON 4 MG/2 ML (SDV) Z0FRAN IVP ONE (13:00)
[2018-12-21] MEDS ORDERED: NS IV 1000 ML 1,000 ML IV SCH (13:00)
[2018-12-21 13:11] LABS: ALANINE AMINOTRANSFERASE 28 U/L (0-55); ALBUMIN 4.4 GM/DL (3.2-4.5); ALKALINE PHOSPHATASE 88 U/L (40-136); BILIRUBIN,TOTAL 0.5 MG/DL (0.1-1.0); BUN/CREATININE RATIO 15; CALCIUM 9.6 MG/DL (8.5-10.1); CARBON DIOXIDE 23 MMOL/L (21-32); CHLORIDE 105 MMOL/L (98-107); CREATININE SERUM 0.71 MG/DL (0.60-1.30); GFR ESTIMATED > 60; GLUCOSE 104 MG/DL (70-105); LIPASE 12 U/L (8-78); POTASSIUM 3.9 MMOL/L (3.6-5.0); SODIUM 139 MMOL/L (135-145)
[2018-12-21] MEDS ORDERED: ANTACID SUSP 30 ML UDC (MYLANTA) PO ONE (13:15)
[2018-12-21] MEDS ORDERED: LIDOCAINE 2% VISCOUS 15 ML UDC PO ONE (13:15)
[2018-12-21 14:08] LABS: BILIRUBIN,URINE NEGATIVE (NEGATIVE); CLARITY,URINE CLEAR; COLOR,URINE YELLOW; GLUCOSE, URINE (UA) NEGATIVE (NEGATIVE); KETONES,URINE NEGATIVE (NEGATIVE); LEUKOCYTE ESTERASE ,URINE 1+ (NEGATIVE); NITRITE,URINE NEGATIVE (NEGATIVE); PH,URINE 7 (5-9); PROTEIN,URINE NEGATIVE (NEGATIVE)
--- NOTE | 2018-12-21 14:15 | Diagnostic Imaging Report ---
PROCEDURE: CT abdomen and pelvis without contrast. TECHNIQUE: Multiple contiguous axial images were obtained through the abdomen and pelvis without the use of intravenous contrast. Auto Exposure Controls were utilized during the CT exam to meet ALARA standards for radiation dose reduction. INDICATION: Abdominal pain and nausea for 2 days. Correlation is made with prior CT from 12/01/2018. The lung bases are clear. The liver and gallbladder are unremarkable. No biliary duct dilatation is seen. The pancreas and spleen are unremarkable. No adrenal mass is detected. Multiple cortical low densities involving the right kidney are again noted suggestive of cysts. No calculi are seen. There is no hydronephrosis. Aorta is non-aneurysmal. The small and large bowel loops are of normal caliber. Appendix is visualized and unremarkable. No free fluid or fluid collection is identified. Uterus contains an IUD. The bladder is decompressed. No inflammatory changes are identified. There is some mild sclerosis involving the sacroiliac joints bilaterally consistent with sacroiliitis. IMPRESSION: 1. Unremarkable noncontrast CT of the abdomen and pelvis. There is no evidence of urinary tract calculi or obstruction. There is no CT evidence of acute appendicitis. 2. Findings suggestive of mild sacroiliitis bilaterally. Dictated by: Dictated on workstation # [id number]
[2018-12-21 14:25] LABS: BACTERIA,URINE FEW /HPF; RBC,URINE 0-2 /HPF
--- NOTE | 2018-12-21 14:39 | NUR ---
Pt has vomited immediately after each dose of morphine. Dr. Muller notified.
[2018-12-21] MEDS ORDERED: PROMETHAZINE INJ 25 MG/ML (PHENERGAN) AMP IVP ONE (14:45)
--- NOTE | 2018-12-21 17:08 | NUR ---
JAGDISH CR admitted to room 431-1, with an admitting diagnosis of PERSISTENT ABD PAIN AND VOMITING, on 12/21/18 from ED via BED, accompanied by STAFF. JAGDISH CR introduced to surroundings, call light, bed controls, phone, TV, temperature control, lights, meal times, smoking policy, visitor policy, side rail policy, bathrooms and showers. Patient Rights given to patient in the handbook. JAGDISH CR verbalizes understanding that [facility] is not responsible for the loss or damage to any personal effects or valuables that are kept in the patients posession during their hospitalization. The following Patient Care Plans were discussed with the PATIENT, PAIN, FLUID ALTERATION AND KNOWLEDGE: Discharge Planning. JAGDISH CR verbalizes understanding of Interdisciplinary Patient Education.
[2018-12-21] MEDS ORDERED: CATHETER FLUSH 10 ML SYR IV PRN (17:30)
[2018-12-21] MEDS: NS IV 1000 ML 1,000 ML IV SCH (18:07)
[2018-12-21] MEDS ORDERED: FLU QUADRIvalent (5+ YOA) 2019-2020 (AFLURIA) 0.5 ML IM ONE (18:15)
--- NOTE | 2018-12-21 19:03 | Consultation - Surgery ---
DOMENICO REYES,MED STUDENT 12/21/18 1903: History of Present Illness History of Present Illness Patient Consulted On(goran/time) 12/21/18 18:35 Date Seen by Provider: Dec 21, 2018 Time Seen by Provider: 18:35 History of Present Illness 33yo female c/o epigastric abdominal pain and nausea and vomiting for 3 days. Symptoms began Thursday when she noticed she was dizzy and had a headache, and the n became nauseous and started vomiting. Over the next two days she vomiting up some blood. 20 days ago she also had an episode of abdominal pain and vomiting, and an EGD was performed at that time which revealed 2 gastric ulcers. She was prescribed a PPI, which has not helped her symptoms. Allergies and Home Medications Allergies Coded Allergies: No Known Drug Allergies (Unverified , 05/18/15) Home Medications Pantoprazole Sodium 40 Mg Tablet.dr, 40 MG PO DAILY Prescribed by: MELVIN COHEN on 12/03/18 1039 Sucralfate 1 Gm Tablet, 1 GM PO ACHS Prescribed by: MELVIN COHEN on 12/03/18 1039 Patient Home Medication List Home Medication List Reviewed: No Past Bmsittb-Wuvzkh-Xftxva Hx Patient Social History Alcohol Use: Denies Use Recreational Drug Use: No Smoking Status: Never a Smoker 2nd Hand Smoke Exposure: No Recent Foreign Travel: No Contact w/Someone Who Travel: No Recent Infectious Disease Expo: No Recent Hopitalizations: No Physical Abuse Screen: No Sexual Abuse: No Immunizations Up To Date Date of Influenza Vaccine: Nov 17, 2018 Seasonal Allergies Seasonal Allergies: No Surgeries History of Surgeries: Yes Surgeries: Section (2 years ago this March) Respiratory History of Respiratory Disorde: No Cardiovascular History of Cardiac Disorders: No Neurological History of Neurological Disord: No Reproductive System : No Hx Reproductive Disorders: No Sexually Transmitted Disease: No HIV/AIDS: No Female Reproductive Disorders: Ovarian 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 Genitourinary History of Genitourinary Disor: No Gastrointestinal History of Gastrointestinal Di: Yes Gastrointestinal Disorders: Gastroesophageal Reflux Musculoskeletal History of Musculoskeletal Dis: No Endocrine History of Endocrine Disorders: No HEENT History of HEENT Disorders: No Loss of Vision: Denies Hearing Impairment: Denies Cancer History of Cancer: No Psychosocial History of Psychiatric Problem: No Integumentary History of Skin or Integumenta: No Blood Transfusions History of Blood Disorders: No Adverse Reaction to a Blood Tr: No Family Medical History Significant Family History: Cancer Family Medial History: Patient reports no known family medical history. Review of Systems-General Constitutional: No chills; dizziness, fever (Reports mild fevers) Respiratory: No cough; short of breath (During episodes of abdominal pain and nausea); No stridor, No wheezing Cardiovascular: No edema, No Hx of Intervention, No palpitations Gastrointestinal: abdominal pain (LUQ), constipation (No bowel movements for 2 days); No diarrhea; hematemesis, nausea, vomiting Psychiatric/Neurological: Headache Physical Exam-General Problems Physical Exam Vital Signs Vital Signs - First Documented 12/21/18 12:05 Temp 37.0 Pulse 78 Resp 16 B/P (MAP) 126/63 (84) Pulse Ox 97 O2 Delivery Room Air Capillary Refill : Less Than 3 Seconds General Appearance: WD/WN, mild distress Eyes: Bilateral Eye PERRL, Bilateral Eye EOMI HEENT: PERRL/EOMI; No scleral icterus (R), No scleral icterus (L) Respiratory: chest non-tender, normal breath sounds, no respiratory distress, no accessory muscle use Cardiovascular: normal peripheral pulses, regular rate, rhythm, no edema, no murmur Peripheral Pulses: 2+ Dorsalis Pedis (R), 2+ Left Dors-Pedis (L), 2+ Radial Pulses (R), 2+ Radial Pulses (L) Gastrointestinal: normal bowel sounds, soft, no organomegaly, tenderness Neurologic/Psychiatric: alert, normal mood/affect, oriented x 3 Skin: normal color, warm/dry; No diaphoresis Data Review Labs Laboratory Tests 12/21/18 12:40: White Blood Count 12.6H, Red Blood Count 5.08, Hemoglobin 14.3, Hematocrit 43, Mean Corpuscular Volume 85, Mean Corpuscular Hemoglobin 28, Mean Corpuscular Hemoglobin Concent 33, Red Cell Distribution Width 12.9, Platelet Count 412H, Mean Platelet Volume 9.8, Neutrophils (%) (Auto) 73, Lymphocytes (%) (Auto) 19, Monocytes (%) (Auto) 5, Eosinophils (%) (Auto) 3, Basophils (%) (Auto) 0, Neutrophils # (Auto) 9.3H, Lymphocytes # (Auto) 2.4, Monocytes # (Auto) 0.7, Eosinophils # (Auto) 0.3, Basophils # (Auto) 0.0, Sodium Level 139, Potassium Level 3.9, Chloride Level 105, Carbon Dioxide Level 23, Anion Gap 11, Blood Urea Nitrogen 11, Creatinine 0.71, Estimat Glomerular Filtration Rate > 60, BUN/Creatinine Ratio 15, Glucose Level 104, Calcium Level 9.6, Corrected Calcium 9.3, Total Bilirubin 0.5, Aspartate Amino Transf (AST/SGOT) 20, Alanine Aminotransferase (ALT/SGPT) 28, Alkaline Phosphatase 88, Total Protein 8.0, Albumin 4.4, Lipase 12 12/21/18 13:30: Urine Color YELLOW, Urine Clarity CLEAR, Urine pH 7, Urine Specific [place] 1.010L, Urine Protein NEGATIVE, Urine Glucose (UA) NEGATIVE, Urine Ketones NEGA TIVE, Urine Nitrite NEGATIVE, Urine Bilirubin NEGATIVE, Urine Urobilinogen NORMAL, Urine Leukocyte Esterase 1+H, Urine RBC (Auto) NEGATIVE, Urine RBC 0-2, Urine WBC 5-10H, Urine Squamous Epithelial Cells 5-10, Urine Crystals NONE, Urine Bacteria FEWH, Urine Casts NONE, Urine Mucus MODERATEH, Urine Culture Indicated YES Assessment/Plan Assessment/Plan Assessment/Plan Peptic ulcers Hematemesis Nausea Epigastric abdominal pain Clinical Quality Measures DVT/VTE Risk/Contraindication: RFS Level Per Nursing on Admit: 1=Low/No VTE PPX TOMAS MOREL DO 12/21/18 2323: History of Present Illness History of Present Illness Time Seen by Provider: 20:01 History of Present Illness Pt seen and examined. She is belizean speaking and obtained info/diplomatic interpreter/translator from language line. Pt stated she was feeling better, but then woke up "sick" Thursday and went to work. Symptoms got worse at work. She does not think the medications I prescribed have helped. States she is still vomiting blood. Has some lower abdominal pain and is asking if lifting is causing her ovarian cysts to cause this pain. Allergies and Home Medications Allergies Coded Allergies: No Known Drug Allergies (Unverified , 05/18/15) Home Medications Pantoprazole Sodium 40 Mg Tablet.dr, 40 MG PO DAILY Prescribed by: MELVIN COHEN on 12/03/18 1039 Sucralfate 1 Gm Tablet, 1 GM PO ACHS Prescribed by: MELVIN COHEN on 12/03/18 1039 Patient Home Medication List Home Medication List Reviewed: Yes Past Iozxhak-Deswbm-Ozftqz Hx Family Medical History Family Medial History: Patient reports no known family medical history. Review of Systems-General EENTM: No blurred vision, No double vision, No hoarseness, No mouth pain, No mouth swelling Genitourinary: No dysuria, No frequency, No hematuria Musculoskeletal: joint pain, joint swelling, muscle stiffness Skin: No change in color, No change in hair/nails Other pt denies any hx of abnormal bleeding or bruising Physical Exam-General Problems Physical Exam Neck: supple; No thyromegaly Gastrointestinal: tenderness (mainly lower abdomen), hernia (?small umbilical hernia) Back: no CVA tenderness, no vertebral tenderness Extremities: no pedal edema, no calf tenderness, normal capillary refill Lymphatic: no adenopathy (neck, axilla or groin) Assessment/Plan Assessment/Plan Assessment/Plan Hematemesis Abdominal pain Leukocytosis Pt was seen about 3 weeks ago in the hospital, with basically the same symptoms. EGD at that time showed gastritis, ?ulcers and she was place on PPI and I believe carafate. I saw her in the office and she was showing some improvement. She states she was taking the medications like she is supposed to. Plan to repeat the EGD tomorrow. Will order consent, already discussed procedure with pt (risks and complications not limited to pain, bleeding, infection, esophageal rupture and all questions answered to her satisfaction). Supervisory-Addendum Brief Verification & Attestation Participated in pt care: history, MDM, physical Personally performed: exam, history, MDM Care discussed with: Medical Student Procedures: n/a Verification and Attestation of Medical Student E/M Service A medical student performed and documented this service in my presence. I reviewed and verified all information documented by the medical student and made modifications to such information, when appropriate. I personally performed the physical exam and medical decision making. Tomas Morel, Dec 21, 2018,23:34 DOMENICO REYES,MED STUDENT Dec 21, 2018 19:03 TOMAS MOREL DO Dec 21, 2018 23:23
[2018-12-21 20:00] VITALS: BP 92/60
[2018-12-21 20:35] VITALS: BP 98/66
[2018-12-22] VITALS (9 sets, daily range): BP systolic 86–122; BP diastolic 42–82
[2018-12-22] MEDS: fentaNYL INJECTION 100 MCG/2 ML AMP IV PRN ×5 (03:20→22:19)
[2018-12-22] MEDS: NS IV 1000 ML 1,000 ML IV SCH ×3 (03:49→16:32)
[2018-12-22 05:39] LABS: BASOPHILS % (AUTO) 0 % (0-10); EOSINOPHILS # (AUTO) 0.6 10^3/uL (0.0-0.3); EOSINOPHILS % (AUTO) 8 % (0-10); HEMATOCRIT 40 % (35-52); HEMOGLOBIN 12.9 G/DL (11.5-16.0); LYMPHOCYTES % (AUTO) 41 % (12-44); MEAN CORPUSCULAR HEMOGLOBIN 29 PG (25-34); MEAN CORPUSCULAR HGB CONC 33 G/DL (32-36); MEAN CORPUSCULAR VOLUME 88 FL (80-99); MONOCYTES # (AUTO) 0.5 X 10^3 (0.0-1.0); MONOCYTES % (AUTO) 7 % (0-12); NEUTROPHILS # (AUTO) 3.1 X 10^3 (1.8-7.8); NEUTROPHILS % (AUTO) 43 % (42-75); PLATELET COUNT 321 10^3/uL (130-400); RED CELL DISTRIBUTION WIDTH 12.7 % (10.0-14.5); WHITE BLOOD COUNT 7.1 10^3/uL (4.3-11.0)
[2018-12-22 06:01] LABS: ALANINE AMINOTRANSFERASE 24 U/L (0-55); ALBUMIN 3.6 GM/DL (3.2-4.5); ALKALINE PHOSPHATASE 74 U/L (40-136); BILIRUBIN,TOTAL 0.4 MG/DL (0.1-1.0); BUN/CREATININE RATIO 15; CALCIUM 8.5 MG/DL (8.5-10.1); CARBON DIOXIDE 24 MMOL/L (21-32); CHLORIDE 108 MMOL/L (98-107); CREATININE SERUM 0.68 MG/DL (0.60-1.30); GFR ESTIMATED > 60; GLUCOSE 85 MG/DL (70-105); POTASSIUM 4.4 MMOL/L (3.6-5.0); SODIUM 139 MMOL/L (135-145); TOTAL PROTEIN 6.4 GM/DL (6.4-8.2)
[2018-12-22] MEDS ORDERED: SUCR1TAB PO (10:49)
[2018-12-22] MEDS ORDERED: PANT40TA2 PO (10:49)
[2018-12-22] MEDS ORDERED: IBUP-850 PO (10:49)
--- NOTE | 2018-12-22 10:49 | NUR ---
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 I SPOKE WITH THE PATIENT VIA AN ICE CREAM MACHINE OPERATOR ON THE TWO WAY PHONE AND SHE VERIFIED SHE IS TAKING THE CARAFATE AND PROTONIX PRESCRIBED. [facility] ALSO FILLED TRAMADOL 50MG Q4H PRN #15 12-03-18 - SHE STATES SHE IS OUT OF THAT PAIN MEDICATION BUT HAS A BOTTLE OF IBU 800MG HERE WITH HER FILLED AT [facility] 11-02-18 TID #42 - SHE STATES SHE HAS BEEN TAKING THAT NEEDED. SHE DOES NOT TAKE ANYTHING OTC.
--- NOTE | 2018-12-22 11:20 | NUR ---
TAKEN DOWN FOR EGD
[2018-12-22] MEDS ORDERED: LACTATED RINGERS 1,000 ML IV ONE (11:21)
[2018-12-22] MEDS ORDERED: MIDAZOLAM 2 MG/2 ML (VERSED) VIAL ONE (11:46)
[2018-12-22] MEDS ORDERED: proPOfol 200 MG/20 ML (DIPRIVAN) VIAL IV ONE (11:46)
[2018-12-22] MEDS: LACTATED RINGERS 1,000 ML IV SCH (11:50)
--- NOTE | 2018-12-22 12:20 | NUR ---
BACK TO ROOM -- REPORT FROM SAND CARRIER ---
--- NOTE | 2018-12-22 14:10 | History & Physical-Hospitalist ---
SHANICE SERRANO MED STUDENT 12/22/18 1409: History of Present Illness HPI/Chief Complaint CC: Abdominal pain, Nausea and vomiting When I saw Mrs. Tommy Diane today, she appeared to be in mild distress, and I spoke mostly with her . Neither of them spoke much Azerbaijani, and were not able to communicate to me the story of what brought them to the ER yesterday. They have four children, one of which is old enough to translate for them, but is in school. Based on prior notes on record, she had seen [facility] 2 months ago with similar symptoms, and underwent an EGD, after which she was prescribed sucralfate and omeprazole, which she reports have not eased her pain. She came back to the ER yesterday with abdominal pain, nausea, and vomiting. She was given morphine for pain but vomited after each dose, is now on fentanyl. She had a CT abdomen that was unremarkable. Her vitals today are BP 93/51, HR 62, RR 18. Latest CBC shows WBC 7.1, down from 12.6 initially, Hgb 12.9, Hct 40, platelet count 321, down from 412. CMP shows Cl 108, Cr 0.68, glucose 85. UA showed specific gravity of 1.010, 1+ leukocyte esterase, 5-10 WBC, few bacteria, moderate mucus. Conversing as best we could, they told me she was still feeling the abdominal pain and nausea this morning, and that she had been taking sucralfate, omprazole, and ibuprofen at home, and she had been taking them in the mornings. Source: patient, family Exam Limitations: language barrier Date Seen 12/22/18 Time Seen by a Provider: 08:00 Attending Physician Evi Ramirez DO [facility] Center/Count Includes [facility] Referring Physician Date of Admission Dec 21, 2018 at 15:00 Home Medications & Allergies Home Medications Reviewed patient Home Medication Reconciliation performed by pharmacy medication reconciliations operating room technician and/or nursing. Patients Allergies have been reviewed. Allergies Allergies Coded Allergies No Known Drug Allergies (Unverified05/18/15) Past Nhywuzw-Pxpsbz-Amwnlg Hx Past Med/Social Hx: Reviewed Nursing Past Med/Soc Hx Patient Social History Number of living children: 4 Alcohol Use: Denies Use Recreational Drug Use: No Smoking Status: Never a Smoker 2nd Hand Smoke Exposure: No Physical Abuse Screen: No Sexual Abuse: No Recent Foreign Travel: No Contact w/other who traveled: Yes Recent Hopitalizations: No Recent Infectious Disease Expo: No Immunizations Up To Date Date of Influenza Vaccine: Nov 17, 2018 Seasonal Allergies Seasonal Allergies: No Past Medical History Surgeries: Section (2 years ago march) : No Reproductive: No Sexually Transmitted Disease: No HIV/AIDS: No Female Reproductive Disorders: Ovarian Cyst IUD Gastrointestinal: Gastroesophageal Reflux Loss of Vision: Denies Hearing Impairment: Denies History of Blood Disorders: No Adverse Reaction to Blood Lees: No Family History Patient reports no known family medical history. Cancer Review of Systems ROS-Unable to Obtain: limited by language barrier, used [employer] phone daniel for assistance Constitutional: chills (this morning); No fever Respiratory: No cough, No short of breath Cardiovascular: No chest pain Gastrointestinal: abdominal pain (RUQ); No diarrhea; heartburn; No melena, No nausea (present yesterday, not today) Genitourinary: No dysuria, No hematuria Psychiatric/Neurological: Denies Numbness, Denies Paresthesia; Tingling (abdomen) Physical Exam Physical Exam Vital Signs Vital Signs - First Documented 12/21/18 12/22/18 12:05 12:00 Temp 37.0 Pulse 78 Resp 16 B/P (MAP) 126/63 (84) Pulse Ox 97 O2 Delivery Room Air O2 Flow Rate 9 Capillary Refill : Less Than 3 SecondsLess Than 3 Seconds Height, Weight, BMI Height: 4'11.00" Weight: 134lbs. 0oz. 60.368498vm; 30.20 BMI Method:Actual General Appearance: Mild Distress Respiratory: Lungs Clear, Normal Breath Sounds, No Accessory Muscle Use, No Respiratory Distress Cardiovascular: Regular Rate, Rhythm, No Gallop, No Murmur Gastrointestinal: Normal Bowel Sounds, Tenderness (epigastric and LLQ) Neurologic/Psychiatric: Alert, Oriented x3 Results Results/Procedures Labs Laboratory Tests 12/21/18 12:40 12/22/18 05:20 Patient resulted labs reviewed. Assessment/Plan Assessment and Plan Assessment: 1. Abdominal pain 2. Nausea/Vomiting 3. Abnormal UA Plan: 1. Await EGD results 2. Urine culture 3. Continue fentanyl for pain management 4. Continue ondansetron for N/V Clinical Quality Measures DVT/VTE Risk/Contraindication: RFS Level Per Nursing on Admit: 1=Low/No VTE PPX EVI RAMIREZ DO 12/22/182022: History of Present Illness HPI/Chief Complaint CC: Abdominal Pain HPI: This a 33yoHF who speaks no Azerbaijani I do confer with her in my limited medical canadian who presented with abdominal pain, CT was negative but she will undergo EGD today by Dr. Morel to evaluate the source of the abdominal pain. She hasn't vomited since last night. Past Oavjwow-Swxgpp-Eaghag Hx Past Med/Social Hx: Reviewed Nursing Past Med/Soc Hx, Reviewed and Corrections made Patient Social History Marrital Status: Family History Patient reports no known family medical history. Review of Systems Gastrointestinal: abdominal pain (RUQ), nausea (present yesterday, not today), vomiting Physical Exam Physical Exam General Appearance: No Apparent Distress, WD/WN, Chronically ill Respiratory: Lungs Clear Cardiovascular: Regular Rate, Rhythm Assessment/Plan Admission Diagnosis Assessment: Abdominal pain Plan: EGD Appreciate Dr Morel Admission Status: Observation Diagnosis/Problems Diagnosis/Problems (1) Abdominal pain Status: Acute Qualifiers: Abdominal location: upper abdomen, unspecified Qualified Codes: R10.10 - Upper abdominal pain, unspecified (2) Nausea and vomiting Status: Acute Qualifiers: Vomiting type: unspecified Vomiting Intractability: intractable Qualified Codes: R11.2 - Nausea with vomiting, unspecified Supervisory-Addendum Brief Verification & Attestation Participated in pt care: history, MDM, physical Personally performed: exam, history, MDM, supervision of care Care discussed with: Medical Student Procedures: n/a Results interpretation: Verified all documentation Verification and Attestation of Medical Student E/M Service A medical student performed and documented this service in my presence. I reviewed and verified all information documented by the medical student and made modifications to such information, when appropriate. I personally performed the physical exam and medical decision making. Evi Ramirez, Dec 22, 2018,20:23 SHANICE SERRANO MED STUDENT Dec 22, 2018 14:09 EVI RAMIREZ DO Dec 22, 2018 20:23
--- NOTE | 2018-12-22 14:22 | Anesthesia-General Post-Op ---
MAC Patient Condition Mental Status/LOC: Same as Preop Cardiovascular: Satisfactory Nausea/Vomiting: Absent Respiratory: Satisfactory Pain: Controlled Complications: Absent Post Op Complications Complications None Follow Up Care/Instructions Patient Instructions None needed. Anesthesiology Discharge Order Discharge Order Patient is doing well, no complaints, stable vital signs, no apparent adverse anesthesia problems. CAMPBELL LAGOS DO Dec 22, 2018 14:22
[2018-12-22] MEDS: ONDANSETRON 4 MG/2 ML (SDV) Z0FRAN IV PRN ×3 (16:55→22:19)
[2018-12-22] MEDS: HYDROcodone/APAP 5 MG/325 MG (LORTAB) TAB PO PRN ×2 (17:09→22:19)
--- NOTE | 2018-12-22 20:33 | Progress Note-Post Operative ---
Post-Operative Progess Note Surgeon (s)/Ed Tech (s) Surgeon TOMAS BOWERS DO Ed Tech: none Pre-Operative Diagnosis Hematemesis, Abd pain Post-Operative Diagnosis Same plus gastritis Hiatal Hernia Procedure & Operative Findings Date of Procedure 12/22/18 Procedure Performed/Findings EGD with bx Anesthesia Type IV sedation by Anesthesia Estimated Blood Loss Estimated blood loss (mL): scant Specimens/Packing Specimens Removed antral bx body of stomach bx x 2 TOMAS BOWERS DO Dec 22, 2018 20:33
[2018-12-23] MEDS: LACTATED RINGERS 1,000 ML IV SCH (00:19)
--- NOTE | 2018-12-23 00:23 | NUR ---
vs held at this time. pt resting and has been crying in pain before pain meds given Addendum: 12/23/18 at 0024 by SHANAE LOWERY RN Amended: Links added.
[2018-12-23 01:32] VITALS: BP 89/56
[2018-12-23] MEDS: NS IV 1000 ML 1,000 ML IV SCH (01:53)
[2018-12-23] MEDS: ONDANSETRON 4 MG/2 ML (SDV) Z0FRAN IV PRN (04:00)
--- NOTE | 2018-12-23 04:15 | OPERATIVE REPORT ---
DATE OF SERVICE: PREOPERATIVE DIAGNOSES: Severe abdominal pain and hematemesis. POSTOPERATIVE DIAGNOSES: 1. Severe abdominal pain and hematemesis. 2. Gastritis. PROCEDURE: EGD with biopsy. SURGEON: Chano Morel DO. REGIONAL COORDINATOR: None. ANESTHESIA: IV sedation by the anesthesia. SPECIMEN: Biopsy from antrum. Two biopsies from the body of stomach. BLOOD LOSS: Scant. FLUIDS: Per anesthesia. POSTOPERATIVE CONDITION: Stable. INDICATION FOR PROCEDURE: The patient is a 33-year-old female who has been in the hospital before with hematemesis and abdominal pain, diagnosed with some gastritis, esophagitis and placed on medicines. She returned with similar symptoms and severe abdominal pain, taken back to look to make sure she does not have any ulcers. FINDINGS: The patient had some mild gastritis in the antrum, but looked worse in the body of stomach; biopsy done, sent to pathology. PROCEDURE NOTE: After informed consent was obtained, the patient was brought to the endoscopy suite and placed on bed in the left lateral decubitus position. She was administered IV sedation by the anesthesiologist who then monitored her vitals the entire time, heart rate, blood pressure and pulse ox and the scope was inserted down the mouth through the esophagus into the stomach. Upon entering the stomach, noted some mild gastritis in the antrum, pushed into the duodenum. Duodenum looked fine. Pulled back and did a biopsy of the antrum and then retroflexed the scope, saw a small hiatal hernia. The body of stomach actually looked more red. Picture taken and two specimens were obtained here and then suctioned the air out of the stomach, pulled the scope into the esophagus and then up the esophagus and out the mouth. The patient tolerated the procedure, recovered in endoscopy suite. Job ID: [id number] DocumentID: [id number] Dictated Date: 12/22/2018 20:35:33 City Carrier Assistant Date: 12/23/2018 04:13:34 Dictated By: CHANO MOREL DO
[2018-12-23] MEDS: fentaNYL INJECTION 100 MCG/2 ML AMP IV PRN (05:53)
[2018-12-23 08:30] VITALS: BP 96/64
[2018-12-23] MEDS: HYDROcodone/APAP 5 MG/325 MG (LORTAB) TAB PO PRN ×2 (08:54→14:11)
--- NOTE | 2018-12-23 08:54 | Progress Note - Surgery ---
DOMENICO REYES,MED STUDENT 12/23/18 0854: Subjective Date Seen by a Provider: Dec 23, 2018 Time Seen by a Provider: 08:05 Subjective/Events-last exam This morning Ms. Tommy Diane is continuing to have headaches and abdominal pain. She describes her MATHEWS's as starting at the top of her head and then continuing to the back. She states the MATHEWS's last for approximately 10 minutes, resolve and then come back between 2 and 4 hours later. She notes one MATHEWS woke her up around 0600 this morning. She states her abdominal pain is still coming and going, but is slightly less severe than yesterday. She has urinated this am, but has not had a bowel movement. She has not eaten yet today. Objective Exam Vital Signs Date Time Temp Pulse Resp B/P (MAP) Pulse Ox O2 Delivery O2 Flow Rate FiO2 12/23/18 01:32 36.6 72 20 89/56 (67) 95 Room Air 12/23/18 00:24 18 12/22/18 22:19 37.0 12/22/18 22:19 37.0 12/22/18 20:00 97 Room Air 9.00 12/22/18 20:00 36.6 72 122/82 (95) 99 Room Air 12/22/18 19:37 18 12/22/18 17:40 37.0 12/22/18 17:09 37.0 12/22/18 16:00 37.0 76 18 86/42 (57) 97 Room Air 12/22/18 14:30 36.9 12/22/18 12:10 65 18 98 Room Air 12/22/18 12:05 67 18 99 OxyMask 9 12/22/18 12:00 79 18 99 OxyMask 9 12/22/18 11:34 36.9 63 18 96/54 (68) 97 Room Air I & O 12/23/18 07:00 Intake Total 2380 ml Balance 2380 ml Capillary Refill : Less Than 3 SecondsLess Than 3 Seconds General Appearance: No Apparent Distress, WD/WN Respiratory: Lungs Clear, Normal Breath Sounds, No Accessory Muscle Use Cardiovascular: Regular Rate, Rhythm, No Murmur, Normal Peripheral Pulses Peripheral Pulses: 2+ Dorsalis Pedis (R), 2+ Left Dors-Pedis (L), 2+ Radial Pulses (R), 2+ Radial Pulses (L) Gastrointestinal: tenderness (mainly lower abdomen), hernia (?small umbilical hernia) Neurologic/Psychiatric: Alert, Oriented x3 Results Lab Microbiology 12/21/18 Urine Culture - Final, Complete NO GROWTH Assessment/Plan Assessment/Plan Assessment/Plan Hematemesis Abdominal pain Leukocytosis Pt was seen about 3 weeks ago in the hospital, with basically the same symptoms. EGD at that time showed gastritis, ?ulcers and she was place on PPI and I believe carafate. Repeat EGD also revealed gastritis. I saw her in the office and she was showing some improvement. She states she was taking the medications like she is supposed to. Clinical Quality Measures DVT/VTE Risk/Contraindication: RFS Level Per Nursing on Admit: 1=Low/No VTE PPX CHANO BOWERS DO 12/23/18 1219: Subjective Time Seen by a Provider: 11:29 Subjective/Events-last exam Pt seen and examined, her main complaint today is of headache. She states that pain is severe. Assessment/Plan Assessment/Plan Assessment/Plan Pt needs to continue with carafate and PPI. I will see her as an outpt. Supervisory-Addendum Brief Verification & Attestation Participated in pt care: history, MDM, physical Personally performed: exam, history, MDM Care discussed with: Medical Student Procedures: n/a Verification and Attestation of Medical Student E/M Service A medical student performed and documented this service in my presence. I reviewed and verified all information documented by the medical student and made modifications to such information, when appropriate. I personally performed the physical exam and medical decision making. Chano Bowers, Dec 23, 2018,12:19 DOMENICO REYES,MED STUDENT Dec 23, 2018 08:54 CHANO BOWERS DO Dec 23, 2018 12:19
--- NOTE | 2018-12-23 09:22 | NUR ---
Patient up to bathroom complaining of head pain inthe back of the head rated at 10. Dr Tsang in room. New Orders for one time Dose of Toradol 30 mg IV and Dilaudid 0.5mg IV. Josephine VALDEZ also at bedside and notified of this order and pain level. Patient and fmily requesting pain medication also.
[2018-12-23] MEDS ORDERED: ACHD5005 PO (09:26)
[2018-12-23] MEDS ORDERED: HYOS0.1283 SL (09:27)
[2018-12-23] MEDS ORDERED: HYDROmorphone 2 MG/ML VIAL (DILAUDID) IV NR (09:36)
[2018-12-23] MEDS ORDERED: KETOROLAC 30 MG/ML VIAL IVP NR (09:37)
--- NOTE | 2018-12-23 10:11 | NUR ---
Patient resting in bed Blood Pressure 94/64 Dr Tsang notified I did not give Dilaudid and she agreed to not give it at this time. Josephine VALDEZ notified also.
--- NOTE | 2018-12-23 11:03 | Discharge Summary ---
SHANICE SERRANO MED STUDENT 12/23/18 1102: Diagnosis/Chief Complaint Date of Admission Dec 21, 2018 at 15:00 Date of Discharge Discharge Date: Dec 23, 2018 Admission Diagnosis Assessment: Abdominal pain Plan: EGD Appreciate Dr Morel [facility] Discharge Diagnosis Abdominal pain, Nausea and vomiting (1) Abdominal pain Status: Acute (2) Nausea and vomiting Status: Acute Discharge Summary Discharge Physical Exam Allergies: Coded Allergies: No Known Drug Allergies (Unverified , 05/18/15) Vitals & I&Os Vital Signs Date Time Temp Pulse Resp B/P (MAP) Pulse Ox O2 Delivery O2 Flow Rate FiO2 12/23/18 09:50 36.8 12/23/18 08:30 96 22 96/64 (75) 99 Room Air 12/22/18 20:00 9.00 General Appearance: Anxious, Moderate Distress Respiratory: Lungs Clear, Normal Breath Sounds, No Accessory Muscle Use, No Respiratory Distress Cardiovascular: Regular Rate, Rhythm, No Edema, No Gallop, No Murmur Gastrointestinal: Normal Bowel Sounds, Tenderness (epigastric to palpation and with deep breathing, lower quadrants to palpation) Neurologic/Psychiatric: Alert, Oriented x3 Hospital Course Mrs. Tommy Diane arrived in the ER 12/21 with abdominal pain and n/v, she had been in the ER 2 month ago with similar symptoms, had a negative EGD and was prescribed sucralfate and omeprazole, which she reports have not eased her pain. Underwent an EGD on 12/22, which revealed mild gastritis in the body of the stomach and to a lesser extent in the antrum, a biopsy was taken. When seen today she continues to have abdominal pain in her epigastric and lower quadrants of her abdomen. Reports having small amounts of blood in vomit and stool. Has developed headaches during her stay that she feels on top of her head and down the back of her neck, she was writhing and crying due to pain when I saw her. Pain controlled with hydromorphone and ketorolac injection. Labs (last 24 hrs) Microbiology 12/21/18 Urine Culture - Final, Complete NO GROWTH Patient resulted labs reviewed. Discharge Home Medications: Active Scripts Active Levsin-Sl (Hyoscyamine Sulfate) 0.125 Mg Tab.subl 0.125 Mg SL AC Hydrocodone/Acetaminophen 5/325mg Tablet (Acetaminophen/Hydrocodone Bitart) 1 Tab Tab 1 Tab PO Q4H PRN Reported Ibu (Ibuprofen) 800 Mg Tablet 800 Mg PO TID PRN Sucralfate 1 Gm Tablet 1 Gm PO ACHS Protonix (Pantoprazole Sodium) 40 Mg Tablet.dr 40 Mg PO DAILY Instructions to patient/family Please see electronic discharge instructions given to patient. Clinical Quality Measures DVT/VTE Risk/Contraindication: RFS Level Per Nursing on Admit: 1=Low/No VTE PPX EVI RAMIREZ DO 12/23/182116: Diagnosis/Chief Complaint Discharge Diagnosis (1) Nausea and vomiting Status: Acute (2) Abdominal pain Status: Acute Discharge Summary Discharge Physical Exam Allergies: Coded Allergies: No Known Drug Allergies (Unverified , 05/18/15) General Appearance: No Apparent Distress, WD/WN Respiratory: Normal Breath Sounds Cardiovascular: Regular Rate, Rhythm Neurologic/Psychiatric: Alert, Oriented x3, No Motor/Sensory Deficits, Normal Mood/Affect Hospital Course Was the Problem List Reviewed?: Yes Hospital course: Pt had an uneventful hospital course, she was admitted for abdominal pain, EGD did not show any pathology, she was maintained on Protonix and Carafate and Dr. Morel will see her in close follow-up. At day of discharge she began having a migraine headache, I did treat that with Toradol and Dilaudid which will be monitored and she will go home on a few pain medication pills of Lortab and Antiemetics just in case her headaches become worse, but no evidence of any organic based issues, and Pt was discharged in stable condition. Discussion & Recommendations Discharge Planning: <30 minutes discharge planning Supervisory-Addendum Brief Verification & Attestation Participated in pt care: history, MDM, physical Personally performed: exam, history, MDM, supervision of care Care discussed with: Medical Student Procedures: n/a Results interpretation: Verified all documentation Verification and Attestation of Medical Student E/M Service A medical student performed and documented this service in my presence. I reviewed and verified all information documented by the medical student and made modifications to such information, when appropriate. I personally performed the physical exam and medical decision making. Evi Ramirez, Dec 23, 2018,21:18 Problem Qualifiers (1) Abdominal pain: Abdominal location: upper abdomen, unspecified Qualified Codes: R10.10 - Upper abdominal pain, unspecified (2) Nausea and vomiting: Vomiting type: unspecified Vomiting Intractability: intractable Qualified Codes: R11.2 - Nausea with vomiting, unspecified SHANICE SERRANO MED STUDENT Dec 23, 2018 11:02 EVI RAMIREZ DO Dec 23, 2018 21:17
--- NOTE | 2018-12-23 14:08 | NUR ---
WHOLE VIAL OF FENTANIL WAS WASTED WITH KEVYN VALDEZCOURT ADMINISTRATOR NURSE. NONEWAS GIVEN TO PATIENT. ORAL MEDICATION WAS GIVEN INSTEAD.
[2018-12-23] MEDS ORDERED: FLU QUADRIvalent (5+ YOA) 2019-2020 (AFLURIA) 0.5 ML IM ONE (14:16)
--- NOTE | 2018-12-23 14:41 | NUR ---
PRESCRIPTION FOR HYDROCODONE WAS SENT WITH PATIENT. PRESCRIPTION FOR HYOSSCYAMINE WASELECTRONICALLY SENT TO [facility]
== END 2018-12-23 16:00 | disposition home or self-care (01) ==
LOC: EDUNIT# 10:44 → ER 10:45 → 4TH 15:00
PROVIDERS: ADMIT Internal Medicine; ATTEND Internal Medicine
DX: K29.50 Unspecified chronic gastritis without bleeding (principal); K92.0 Hematemesis; B96.81 Helicobacter pylori [H. pylori] as the cause of diseases classified elsewhere; Z79.899 Other long term (current) drug therapy
CPT/HCPCS: 36415; 74176; 80053; 81000; 83690; 84703; 85025; 87081; 87088; 96361; 96374; 96375; 96376

== ENCOUNTER 2020-05-09 17:00 | Emergency (ER) | payer SELFPAY ==
[~2020-05-09] VITALS: Ht 160 cm; Wt 62.0 kg
[~2020-05-09 17:00] MED LIST changes: +HYOS0.1283 SL; +IBUP-850 PO; +PANT40TA2 PO; -PANT40TA3 PO; +PANT40TA52 PO; -TRAM50TA2 PO; +TRM50T PO
[2020-05-09] MEDS ORDERED: ONDANSETRON 4 MG/2 ML (SDV) Z0FRAN IVP ONE (18:00)
[2020-05-09] MEDS ORDERED: LACTATED RINGERS 1,000 ML IV ONE (18:00)
[2020-05-09 18:05] LABS: BASOPHILS % (AUTO) 0 % (0-10); EOSINOPHILS # (AUTO) 0.2 10^3/uL (0.0-0.3); EOSINOPHILS % (AUTO) 2 % (0-10); HEMATOCRIT 46 % (35-52); LYMPHOCYTES # (AUTO) 3.4 10^3/uL (1.0-4.0); LYMPHOCYTES % (AUTO) 36 % (12-44); MEAN CORPUSCULAR HEMOGLOBIN 29 pg (25-34); MEAN CORPUSCULAR HGB CONC 33 g/dL (32-36); MEAN CORPUSCULAR VOLUME 88 fL (80-99); MEAN PLATELET VOLUME 10.1 fL (9.0-12.2); MONOCYTES # (AUTO) 0.5 10^3/uL (0.0-1.0); MONOCYTES % (AUTO) 5 % (0-12); NEUTROPHILS # (AUTO) 5.3 10^3/uL (1.8-7.8); NEUTROPHILS % (AUTO) 56 % (42-75); PLATELET COUNT 352 10^3/uL (130-400); WHITE BLOOD COUNT 9.4 10^3/uL (4.3-11.0)
[2020-05-09 18:15] LABS: BILIRUBIN,URINE NEGATIVE (NEGATIVE); CLARITY,URINE CLEAR; COLOR,URINE YELLOW; GLUCOSE, URINE (UA) NEGATIVE (NEGATIVE); KETONES,URINE NEGATIVE (NEGATIVE); LEUKOCYTE ESTERASE ,URINE NEGATIVE (NEGATIVE); NITRITE,URINE NEGATIVE (NEGATIVE); PROTEIN,URINE NEGATIVE (NEGATIVE)
[2020-05-09 18:25] LABS: ALBUMIN 4.6 GM/DL (3.2-4.5)
[2020-05-09 18:26] LABS: AMYLASE 88 U/L (25-125); CHLORIDE 102 MMOL/L (98-107); POTASSIUM 3.6 MMOL/L (3.6-5.0); SODIUM 137 MMOL/L (135-145)
[2020-05-09 18:27] LABS: CALCIUM 9.6 MG/DL (8.5-10.1)
[2020-05-09 18:28] LABS: GLUCOSE 87 MG/DL (70-105); TOTAL PROTEIN 8.5 GM/DL (6.4-8.2)
[2020-05-09 18:29] LABS: CARBON DIOXIDE 25 MMOL/L (21-32)
[2020-05-09 18:29] LABS: BACTERIA,URINE NEGATIVE /HPF; SQUAMOUS EPITHELIAL CELL,UR 0-2 /HPF
[2020-05-09 18:30] LABS: BILIRUBIN,TOTAL 0.5 MG/DL (0.1-1.0)
[2020-05-09 18:31] LABS: ALKALINE PHOSPHATASE 88 U/L (40-136)
[2020-05-09 18:32] LABS: GFR ESTIMATED > 60
[2020-05-09 18:33] LABS: BUN/CREATININE RATIO 13
[2020-05-09 18:35] LABS: ALANINE AMINOTRANSFERASE 25 U/L (0-55); LIPASE 17 U/L (8-78)
[2020-05-09] MEDS ORDERED: NS 100 ML (IVPB) BAG IV ONE (18:45)
[2020-05-09] MEDS ORDERED: HOLD METFORMIN - RECEIVED CONTRAST 20 ML VIAL IV SCH (18:45)
[2020-05-09] MEDS ORDERED: IOHEXOL 350 MG/ML 100 ML (OMNIPAQUE 350) VIAL IV ONE (18:45)
[2020-05-09] MEDS ORDERED: KETOROLAC 30 MG/ML VIAL IVP ONE (18:45)
--- NOTE | 2020-05-09 18:56 | ED Abdominal Pain ---
General Chief Complaint: Abdominal/GI Problems Stated Complaint: ABD PAIN Nursing Triage Note: Pt reports upper abd pain since this morning. Also reports nausea. 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 BOWERS, AND SHOWED GASTRITIS, ULCERS, DUODENITIS, ESOPHAGITIS, HIATAL HERNIA; GALLBLADDER ULTRASOUNDS HAVE BEEN NEGATIVE) AND HAS BEEN PRESCRIBED PPI AND CARAFATE I THE PAST. PT HAS NOT TAKEN ANY MEDICATIONS IN A LONG TIME. TOOK TYLENOL AT 1530-NO IMPROVEMENT LMP--UNKNOWN, HAS IUD IN PLACE, NO PERIOD FOR LONG TIME. PCP: RAMA Allergies and Home Medications Allergies Coded Allergies: No Known Drug Allergies (Unverified , 05/18/15) Home Medications Hydrocodone Bit/Acetaminophen 1 Tab Tab, 1 TAB PO Q4H PRN for PAIN-MODERATE Prescribed by: JACK RAMIREZ on 12/23/18925 Hyoscyamine Sulfate 0.125 Mg Tab.subl, 0.125 MG SL AC Prescribed by: JACK RAMIREZ on 12/23/18926 Ibuprofen 800 Mg Tablet, 800 MG PO TID PRN for PAIN-MILD, (Reported) Ondansetron 4 Mg Tab.rapdis, 4 MG PO Q4H Prescribed by: AMELIA LO on 05/09/201921 Pantoprazole Sodium 40 Mg Tablet., 40 MG PO DAILY, (Reported) Pantoprazole Sodium 40 Mg Tablet., 40 MG PO DAILY Prescribed by: AMELIA LO on 05/09/201920 Sucralfate 1 Gm Tablet, 1 GM PO ACHS, (Reported) Sucralfate 1 Gm Tablet, 1 GM PO QID Prescribed by: AMELIA LO on 05/09/201920 Patient Home Medication List Home Medication List Reviewed: Yes Review of Systems Review of Systems Constitutional: no symptoms reported; No chills, No fever Respiratory: No Symptoms Reported Cardiovascular: No Symptoms Reported Gastrointestinal: See HPI, Abdominal Pain; Denies Constipated, Denies Diarrhea; Nausea; Denies Vomiting Genitourinary: No Symptoms Reported Musculoskeletal: no symptoms reported; No back pain Skin: no symptoms reported Psychiatric/Neurological: No Symptoms Reported Endocrine: No Symptoms Reported Hematologic/Lymphatic: No Symptoms Reported Past Ovorjss-Tcjqcp-Bwxbnk Hx Past Med/Social Hx: Reviewed and Corrections made Patient Social History Alcohol Use: Denies Use Drug of Choice: DENIES Smoking Status: Never a Smoker 2nd Hand Smoke Exposure: No Recent Infectious Disease Expo: No Recent Hopitalizations: No Immunizations Up To Date Date of Influenza Vaccine: Nov 17, 2018 Seasonal Allergies Seasonal Allergies: No Past Medical History Surgeries: Yes (EGD X 2 11/2018) Section Respiratory: No Cardiac: No Neurological: No Reproductive Disorders: No 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 Cancer Physical Exam Vital Signs Vital Signs - First Documented 05/09/20 17:06 Temp 36.7 Pulse 84 Resp 20 B/P (MAP) 132/103 (113) Pulse Ox 100 O2 Delivery Room Air Capillary Refill : Less Than 3 Seconds Height/Weight/BMI Height: 4'11.00" Weight: 134lbs. 0oz. 60.061998ac; 24.00 BMI Method:Actual General Appearance: WD/WN, no apparent distress HEENT: No scleral icterus (R), No scleral icterus (L) Neck: normal inspection Respiratory: normal breath sounds, no respiratory distress, no accessory muscle use Cardiovascular: regular rate, rhythm, no murmur Gastrointestinal: normal bowel sounds, soft, no organomegaly; No distended, No guarding, No rebound; tenderness (EPIGASTRIC); No hernia, No mass Extremities: normal inspection Back: no CVA tenderness Neurologic/Psychiatric: tie in hand II-XII nml as tested, no motor/sensory deficits, alert, normal mood/affect, oriented x 3 Skin: normal color (), warm/dry Progress/Results/Core Measures Results/Orders Lab Results Laboratory Tests Test 05/09/20 17:49 05/09/20 17:51 Range/Units Urine Color YELLOW Urine Clarity CLEAR Urine pH 7.0 5-9 Urine Specific [place] 1.010 L 1.016-1.022 Urine Protein NEGATIVE NEGATIVE Urine Glucose (UA) NEGATIVE NEGATIVE Urine Ketones NEGATIVE NEGATIVE Urine Nitrite NEGATIVE NEGATIVE Urine Bilirubin NEGATIVE NEGATIVE Urine Urobilinogen 0.2 < = 1.0 MG/DL Urine Leukocyte Esterase NEGATIVE NEGATIVE Urine RBC (Auto) NEGATIVE NEGATIVE Urine RBC NONE /HPF Urine WBC NONE /HPF Urine Squamous Epithelial Cells 0-2 /HPF Urine Renal Epithelial Cells NONE /HPF Urine Crystals NONE /LPF Urine Bacteria NEGATIVE /HPF Urine Casts NONE /LPF Urine Mucus NEGATIVE /LPF Urine Culture Indicated NO White Blood Count 9.4 4.3-11.0 10^3/uL Red Blood Count 5.21 H 3.80-5.11 10^6/uL Hemoglobin 15.0 11.5-16.0 g/dL Hematocrit 46 35-52 % Mean Corpuscular Volume 88 80-99 fL Mean Corpuscular Hemoglobin 29 25-34 pg Mean Corpuscular Hemoglobin Concent 33 32-36 g/dL Red Cell Distribution Width 12.3 10.0-14.5 % Platelet Count 352 130-400 10^3/uL Mean Platelet Volume 10.1 9.0-12.2 fL Immature Granulocyte % (Auto) 0 % Neutrophils (%) (Auto) 56 42-75 % Lymphocytes (%) (Auto) 36 12-44 % Monocytes (%) (Auto) 5 0-12 % Eosinophils (%) (Auto) 2 0-10 % Basophils (%) (Auto) 0 0-10 % Neutrophils # (Auto) 5.3 1.8-7.8 10^3/uL Lymphocytes # (Auto) 3.4 1.0-4.0 10^3/uL Monocytes # (Auto) 0.5 0.0-1.0 10^3/uL Eosinophils # (Auto) 0.2 0.0-0.3 10^3/uL Basophils # (Auto) 0.0 0.0-0.1 10^3/uL Immature Granulocyte # (Auto) 0.0 0.0-0.1 10^3/uL Sodium Level 137 135-145 MMOL/L Potassium Level 3.6 3.6-5.0 MMOL/L Chloride Level 102 98-107 MMOL/L Carbon Dioxide Level 25 21-32 MMOL/L Anion Gap 10 5-14 MMOL/L Blood Urea Nitrogen 9 7-18 MG/DL Creatinine 0.70 0.60-1.30 MG/DL Estimat Glomerular Filtration Rate > 60 BUN/Creatinine Ratio 13 Glucose Level 87 70-105 MG/DL Calcium Level 9.6 8.5-10.1 MG/DL Corrected Calcium 8.5-10.1 MG/DL Total Bilirubin 0.5 0.1-1.0 MG/DL Aspartate Amino Transf (AST/SGOT) 22 5-34 U/L Alanine Aminotransferase (ALT/SGPT) 25 0-55 U/L Alkaline Phosphatase 88 40-136 U/L Total Protein 8.5 H 6.4-8.2 GM/DL Albumin 4.6 H 3.2-4.5 GM/DL Amylase Level 88 25-125 U/L Lipase 17 8-78 U/L My Orders Orders - AMELIA LO DO Ed Iv/Invasive Line Start (05/09/20 17:46) Urine Bedside (05/09/20 17:46) Amylase (05/09/20 17:46) Cbc With Automated Diff (05/09/20 17:46) Comprehensive Metabolic Panel (05/09/20 17:46) Lipase (05/09/20 17:46) Ua Culture If Indicated (05/09/20 17:46) Ed Iv/Invasive Line Start (05/09/20 17:54) Lactated Ringers (Lr 1000 Ml Iv Solution (05/09/20 18:00) Ondansetron Injection (Zofran Injectio (05/09/20 18:00) Ketorolac Injection (Toradol Injection) (05/09/20 18:45) Ct Abdomen/Pelvis W (05/09/20 18:36) Acute Abd Series (05/09/20 18:36) Iohexol Injection (Omnipaque 350 Mg/Ml 1 (05/09/20 18:45) Received Contrast (Hold Metformin- Contr (05/09/20 18:45) Ns (Ivpb) (Sodium Chloride 0.9% Ivpb Bag (05/09/20 18:45) Pantoprazole Injection (Protonix Injecti (05/09/20 19:00) Lidocaine 2% Viscous 15 Ml (Xylocaine Vi (05/09/20 19:45) Antacid Suspension (Mylanta Suspension (05/09/20 19:45) Medications Given in ED Current Medications Medications Dose Ordered Sig/Luz Elena Route Start Time Stop Time Status Last Admin Dose Admin Al Hydrox/Mg Hydrox/Simethicone 30 ml ONCE ONCE PO 05/09/20 19:45 05/09/20 19:46 DC 05/09/20 19:46 30 ML Iohexol 75 ml ONCE ONCE IV 05/09/20 18:45 05/09/20 18:46 DC 05/09/20 19:00 75 ML Ketorolac Tromethamine 30 mg ONCE ONCE IVP 05/09/20 18:45 05/09/20 18:46 DC 05/09/20 18:40 30 MG Lactated Ringer's 1,000 ml @ 0 mls/hr Q0M ONCE IV 05/09/20 18:00 05/09/20 18:01 DC 05/09/20 18:20 1,000 MLS/HR Lidocaine HCl 15 ml ONCE ONCE PO 05/09/20 19:45 05/09/20 19:46 DC 05/09/20 19:46 15 ML Ondansetron HCl 4 mg ONCE ONCE IVP 05/09/20 18:00 05/09/20 18:01 DC 05/09/20 18:20 4 MG Pantoprazole 40 mg ONCE ONCE IV 05/09/20 19:00 05/09/20 19:01 DC 05/09/20 19:15 40 MG Sodium Chloride 100 ml ONCE ONCE IV 05/09/20 18:45 05/09/20 18:46 DC 05/09/20 19:00 100 ML Vital Signs/I&O 05/09/20 05/09/20 17:06 19:40 Temp 36.7 Pulse 84 66 Resp 20 20 B/P (MAP) 132/103 (113) 109/65 (113) Pulse Ox 100 96 O2 Delivery Room Air Blood Pressure Mean: 113 Progress Progress Note : Progress Note GIVEN IV FLUIDS, ZOFRAN, PROTONIX, TORADOL AND GI COCKTAIL NO DETERIORATION IN PT'S CONDITION DURING ER STAY Diagnostic Imaging Comments CT ABDOMEN/PELVIS--PER RADIOLOGIST REPORT AT 1918 INDICATION: Epigastric pain Lung bases are clear. Liver appears normal. Gallbladder is present. Portal vein is patent. Common duct is not dilated. Pancreas appears normal. Spleen is not enlarged. Adrenals are normal. Left kidney appears normal. There are numerous cortical cysts on the right kidney. There is no hydronephrosis, calculus or solid mass seen. The appendix is normal. Small bowel is not dilated. There is an IUD in the uterus. Colon appears normal. IMPRESSION: No acute abnormality seen in the abdomen or pelvis ABDOMEN XRAYS--NO ACUTE PROCESS, PER RADIOLOGIST REPORT AT 1918 Reviewed: Reviewed by Me Departure Impression Primary Impression: Epigastric abdominal pain Additional Impression: HX OF ULCERS, GASTRITIS, ESOPHAGITIS Disposition: HOME, SELF-CARE Condition: Stable Departure-Patient Inst. Referrals: [facility] [place]) Primary Care Physician TOMAS BOWERS DO Patient Instructions: Severe Abdominal Pain, Adult (DC), Gastritis (DC) Add. Discharge Instructions: CLEAR LIQUIDS--WATER, BROTH, JELLO, GATORADE TOMORROW IF YOU ARE BETTER, ADD BRATS DIET TO CLEAR LIQUIDS--BANANAS, RICE, APPLESAUCE, TOAST, SALTINES FOLLOW UP WITH DR. BOWERS THIS WEEK FOR FURTHER CARE All discharge instructions reviewed with patient and/or family. Voiced understanding. Scripts Ondansetron (Ondansetron Odt) 4 Mg Tab.rapdis 4 MG PO Q4H for Nausea/Vomiting, #10 TAB Prov: AMELIA LO DO 05/09/20 Sucralfate (Carafate) 1 Gm Tablet 1 GM PO QID, #60 TAB Prov: AMELIA LO DO 05/09/20 Pantoprazole Sodium (Protonix) 40 Mg Tablet.dr 40 MG PO DAILY, #15 TAB Prov: AMELIA LO DO 05/09/20 AMELIA LO DO May 09, 2020 18:56
[2020-05-09] MEDS ORDERED: PANTOPRAZOLE 40 MG (PROTONIX) VIAL IV ONE (19:00)
--- NOTE | 2020-05-09 19:00 | Diagnostic Imaging Report ---
INDICATION: Epigastric pain PA chest, supine and upright abdominal images are obtained. Lungs are clear. There is no intraperitoneal free air. Bowel gas pattern is normal. There is an IUD. There are no pathologic masses or calcifications. IMPRESSION: No acute abnormalities in the abdomen Dictated by: Dictated on workstation # [id number]
--- NOTE | 2020-05-09 19:14 | Diagnostic Imaging Report ---
PROCEDURE: CT abdomen and pelvis with contrast. TECHNIQUE: Multiple contiguous axial images were obtained through the abdomen and pelvis after administration of intravenous contrast. Auto Exposure Controls were utilized during the CT exam to meet ALARA standards for radiation dose reduction. All CT scans use one or more of the following dose optimizing techniques: automated exposure control, MA and/or KvP adjustment based on patient size and exam type or iterative reconstruction. INDICATION: Epigastric pain Lung bases are clear. Liver appears normal. Gallbladder is present. Portal vein is patent. Common duct is not dilated. Pancreas appears normal. Spleen is not enlarged. Adrenals are normal. Left kidney appears normal. There are numerous cortical cysts on the right kidney. There is no hydronephrosis, calculus or solid mass seen. The appendix is normal. Small bowel is not dilated. There is an IUD in the uterus. Colon appears normal. IMPRESSION: No acute abnormality seen in the abdomen or pelvis Dictated by: Dictated on workstation # [id number]
[2020-05-09] MEDS ORDERED: PANT40TA2 PO (19:21)
[2020-05-09] MEDS ORDERED: SUCR1TAB36 PO (19:21)
[2020-05-09] MEDS ORDERED: ONDA4TAB11 PO (19:22)
[2020-05-09 19:40] VITALS: BP 109/65
[2020-05-09] MEDS ORDERED: ANTACID SUSP 30 ML UDC (MYLANTA) PO ONE (19:45)
[2020-05-09] MEDS ORDERED: LIDOCAINE 2% VISCOUS 15 ML UDC PO ONE (19:45)
== END 2020-05-09 19:40 | disposition home or self-care (01) ==
LOC: EDUNIT# 17:00 → ER 17:01
DX: R10.13 Epigastric pain (principal); K21.9 Gastro-esophageal reflux disease without esophagitis; Z80.9 Family history of malignant neoplasm, unspecified
CPT/HCPCS: 36415; 74022; 74177; 80053; 81000; 82150; 83690; 84703; 85025

== ENCOUNTER 2021-10-01 12:23 | Emergency (ER) | payer SELFPAY ==
[~2021-10-01 12:23] MED LIST changes: +ONDA4TAB11 PO; +SUCR1TAB36 PO
[2021-10-01] MEDS ORDERED: ANTACID SUSP 30 ML UDC (MYLANTA) PO ONE (12:45)
[2021-10-01] MEDS ORDERED: LIDOCAINE 2% VISCOUS 15 ML UDC PO ONE (12:45)
--- NOTE | 2021-10-01 12:46 | ED Abdominal Pain ---
General Stated Complaint: ABD PAIN Source of Information: Patient Exam Limitations: No Limitations History of Present Illness Date Seen by Provider: Oct 01, 2021 Time Seen by Provider: 12:44 Initial Comments Patient is a 36-year-old female who presents ED with epigastric pain. Symptoms started last night. Described as sharp with radiation between the shoulder blade. She states the pain is intermittent and does have some radiation to the umbilicus. She reports nausea without vomiting or diarrhea. Patient worst with eating. She denies of any chest pain, shortness of breath. Denies of any indigestion. Patient states she has having pain currently. No exacerbating pain with exertion. Denies fever, dysuria, hematuria, increased urine frequency, vaginal bleeding, vaginal discharge. Allergies and Home Medications Allergies Coded Allergies: No Known Drug Allergies (Unverified , 05/18/15) Patient Home Medication List Home Medication List Reviewed: Yes Hydrocodone Bit/Acetaminophen (Lortab 5 Mg Tablet) 1 Tab Tab, 1 TAB PO Q4H PRN for PAIN-MODERATE Prescribed by: JACK RAMIREZ on 12/23/18 0926 Hyoscyamine Sulfate (Levsin-Sl) 0.125 Mg Tab.subl, 0.125 MG SL AC Prescribed by: JACK RAMIREZ on 12/23/18 09 Ibuprofen (Ibu) 800 Mg Tablet, 800 MG PO TID PRN for PAIN-MILD, (Reported) Entered as Reported by: AZAEL FISHER on 12/22/18 104 Ondansetron (Ondansetron Odt) 4 Mg Tab.rapdis, 4 MG PO Q4H Prescribed by: AMELIA LO on 05/09/201921 Pantoprazole Sodium (Protonix) 40 Mg Tablet.dr, 40 MG PO DAILY, (Reported) Entered as Reported by: AZAEL FISHER on 12/22/18 1049 Pantoprazole Sodium (Protonix) 40 Mg Tablet.dr, 40 MG PO DAILY Prescribed by: AMELIA LO on 05/09/201920 Pantoprazole Sodium (Protonix) 40 Mg Tablet.dr, 40 MG PO DAILY Prescribed by: KEYON TURK on 10/01/21 1454 Sucralfate (Sucralfate) 1 Gm Tablet, 1 GM PO ACHS, (Reported) Entered as Reported by: AZAEL FISHER on 12/22/18 1049 Sucralfate (Carafate) 1 Gm Tablet, 1 GM PO QID Prescribed by: AMELIA LO on 05/09/201920 Review of Systems Review of Systems Constitutional: No chills, No malaise, No weakness EENTM: No Double Vision, No Eye Pain Respiratory: Denies Cough, Denies Shortness of Air, Denies SOA With Exertion, Denies SOA at Rest Cardiovascular: Chest Pain Gastrointestinal: Abdominal Pain; Denies Diarrhea; Nausea; Denies Vomiting Genitourinary: Denies Burning, Denies Discharge, Denies Frequency, Denies Flank Pain Musculoskeletal: No back pain, No joint pain All Other Systems Reviewed Negative Unless Noted: Yes Past Rplbseu-Ytmyqr-Njcyvk Hx Seasonal Allergies Seasonal Allergies: No Past Medical History Surgeries: Yes (EGD X 2 11/2018) Section Respiratory: No Cardiac: No Neurological: No Reproductive Disorders: No 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 Cancer Physical Exam Vital Signs Vital Signs - First Documented 10/01/21 12:30 Temp 36.5 Pulse 76 Resp 18 B/P (MAP) 121/88 (99) Pulse Ox 98 O2 Delivery Room Air Capillary Refill : Height/Weight/BMI Height: 4'11.00" Weight: 134lbs. 0oz. 60.890216cs; 24.00 BMI Method:Actual General Appearance: WD/WN, no apparent distress HEENT: PERRL/EOMI, normal ENT inspection, TMs normal, pharynx normal Neck: non-tender, full range of motion, supple, normal inspection Respiratory: chest non-tender, lungs clear, normal breath sounds, no respiratory distress, no accessory muscle use Cardiovascular: regular rate, rhythm, no edema, no gallop, no JVD Gastrointestinal: normal bowel sounds, soft, tenderness (Epigastric tenderness, right upper quadrant tenderness) Extremities: normal range of motion, non-tender, normal inspection, no pedal edema Back: normal inspection, no CVA tenderness, no vertebral tenderness Neurologic/Psychiatric: 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 II-XII nml as tested, no motor/sensory deficits, alert, normal mood/affect, oriented x 3 Skin: normal color, warm/dry Progress/Results/Core Measures Results/Orders Lab Results Laboratory Tests Test 10/01/21 12:55 Range/Units White Blood Count 9.5 4.3-11.0 10^3/uL Red Blood Count 4.84 3.80-5.11 10^6/uL Hemoglobin 14.1 11.5-16.0 g/dL Hematocrit 41 35-52 % Mean Corpuscular Volume 85 80-99 fL Mean Corpuscular Hemoglobin 29 25-34 pg Mean Corpuscular Hemoglobin Concent 34 32-36 g/dL Red Cell Distribution Width 12.4 10.0-14.5 % Platelet Count 339 130-400 10^3/uL Mean Platelet Volume 9.6 9.0-12.2 fL Immature Granulocyte % (Auto) 0 % Neutrophils (%) (Auto) 58 42-75 % Lymphocytes (%) (Auto) 32 12-44 % Monocytes (%) (Auto) 7 0-12 % Eosinophils (%) (Auto) 3 0-10 % Basophils (%) (Auto) 0 0-10 % Neutrophils # (Auto) 5.5 1.8-7.8 10^3/uL Lymphocytes # (Auto) 3.1 1.0-4.0 10^3/uL Monocytes # (Auto) 0.6 0.0-1.0 10^3/uL Eosinophils # (Auto) 0.3 0.0-0.3 10^3/uL Basophils # (Auto) 0.0 0.0-0.1 10^3/uL Immature Granulocyte # (Auto) 0.0 0.0-0.1 10^3/uL Sodium Level 140 135-145 MMOL/L Potassium Level 3.8 3.6-5.0 MMOL/L Chloride Level 106 98-107 MMOL/L Carbon Dioxide Level 25 21-32 MMOL/L Anion Gap 9 5-14 MMOL/L Blood Urea Nitrogen 7 7-18 MG/DL Creatinine 0.70 0.60-1.30 MG/DL Estimat Glomerular Filtration Rate 115 BUN/Creatinine Ratio 10 Glucose Level 81 70-105 MG/DL Calcium Level 9.6 8.5-10.1 MG/DL Corrected Calcium 9.4 8.5-10.1 MG/DL Total Bilirubin 0.6 0.1-1.0 MG/DL Aspartate Amino Transf (AST/SGOT) 24 5-34 U/L Alanine Aminotransferase (ALT/SGPT) 38 0-55 U/L Alkaline Phosphatase 77 40-136 U/L Troponin I < 0.028 <0.028 NG/ML Total Protein 7.6 6.4-8.2 GM/DL Albumin 4.2 3.2-4.5 GM/DL Lipase 17 8-78 U/L My Orders Orders - CECILIA WILLIAMSON Lidocaine 2% Viscous 15 Ml (Xylocaine Vi (10/01/21 12:45) Antacid Suspension (Mylanta Suspension (10/01/21 12:45) Cbc With Automated Diff (10/01/21 12:42) Comprehensive Metabolic Panel (10/01/21 12:42) Lipase (10/01/21 12:42) Us Gallbladder [id number] (10/01/21 12:42) Iv/Invasive Line Insertion .IV start (10/01/21 12:42) Troponin I [place] (10/01/21 12:42) Chest 1 View, Ap/Pa Only (10/01/21 12:42) Ekg Tracing (10/01/21 12:42) Pantoprazole Injection (Protonix Injecti (10/01/21 14:45) Fentanyl Inj (Sublimaze Injection) (10/01/21 14:32) Medications Given in ED Current Medications Medications Dose Ordered Sig/Luz Elena Route Start Time Stop Time Status Last Admin Dose Admin Al Hydrox/Mg Hydrox/Simethicone 30 ml ONCE ONCE PO 10/01/21 12:45 10/01/21 12:46 DC 10/01/21 12:48 30 ML Lidocaine HCl 15 ml ONCE ONCE PO 10/01/21 12:45 10/01/21 12:46 DC 10/01/21 12:48 15 ML Pantoprazole 40 mg ONCE ONCE IV 10/01/21 14:45 10/01/21 14:46 DC 10/01/21 14:48 40 MG Vital Signs/I&O 10/01/21 10/01/21 12:30 15:10 Temp 36.5 36.4 Pulse 76 73 Resp 18 14 B/P (MAP) 121/88 (99) 109/72 Pulse Ox 98 98 O2 Delivery Room Air Room Air Departure Communication (PCP) Patient presents ED with epigastric abdominal pain. Pain started last night worse with eating. Pain radiates to shoulder blade. Patient reports nausea without vomiting or diarrhea. History of similar type pain in the past. History of esophagitis, gastritis or ulcers. No dark tarry stool or bloody stool. She was given GI cocktail and Protonix with improvement of pain. Will discharge with Protonix. Discussed diet changes avoid eating late at night, elevating bed at night. Recommend outpatient follow-up primary care physician for further evaluation. If this pain progress or worsen to return back to ED for further evaluation. May need further evaluation with EGD if pain progress. Her cardiac work-up was unremarkable. Ultrasound was negative for cholecy stitis, cholelithiasis. If any worsening symptoms return back to ED for further evaluation Impression Primary Impression: Epigastric abdominal pain Disposition: HOME, SELF-CARE Condition: Stable Departure-Patient Inst. Decision time for Depature: 14:53 Referrals: [facility] (PCP/Family) Primary Care Physician Patient Instructions: Gastritis ED Scripts Pantoprazole Sodium (Protonix) 40 Mg Tablet. 40 MG PO DAILY, #20 TAB Prov: CECILIA WILLIAMSON 10/01/21 CECILIA WILLIAMSON Oct 01, 2021 12:46
[2021-10-01 13:02] LABS: BASOPHILS % (AUTO) 0 % (0-10); EOSINOPHILS # (AUTO) 0.3 10^3/uL (0.0-0.3); EOSINOPHILS % (AUTO) 3 % (0-10); HEMATOCRIT 41 % (35-52); HEMOGLOBIN 14.1 g/dL (11.5-16.0); LYMPHOCYTES # (AUTO) 3.1 10^3/uL (1.0-4.0); LYMPHOCYTES % (AUTO) 32 % (12-44); MEAN CORPUSCULAR HEMOGLOBIN 29 pg (25-34); MEAN CORPUSCULAR HGB CONC 34 g/dL (32-36); MEAN CORPUSCULAR VOLUME 85 fL (80-99); MEAN PLATELET VOLUME 9.6 fL (9.0-12.2); MONOCYTES # (AUTO) 0.6 10^3/uL (0.0-1.0); MONOCYTES % (AUTO) 7 % (0-12); NEUTROPHILS # (AUTO) 5.5 10^3/uL (1.8-7.8); NEUTROPHILS % (AUTO) 58 % (42-75); PLATELET COUNT 339 10^3/uL (130-400); WHITE BLOOD COUNT 9.5 10^3/uL (4.3-11.0)
--- NOTE | 2021-10-01 13:19 | Diagnostic Imaging Report ---
INDICATION: Chest pain. FINDINGS: Cardiomediastinal and hilar contours were normal. The lungs are clear. No failure pattern, effusion or pneumothorax. No chest wall abnormality evident. IMPRESSION: Normal frontal chest. Dictated by: Dictated on workstation # [id number]
[2021-10-01 13:28] LABS: ALANINE AMINOTRANSFERASE 38 U/L (0-55); ALBUMIN 4.2 GM/DL (3.2-4.5); ALKALINE PHOSPHATASE 77 U/L (40-136); BILIRUBIN,TOTAL 0.6 MG/DL (0.1-1.0); BUN/CREATININE RATIO 10; CALCIUM 9.6 MG/DL (8.5-10.1); CARBON DIOXIDE 25 MMOL/L (21-32); CHLORIDE 106 MMOL/L (98-107); GFR ESTIMATED 115; GLUCOSE 81 MG/DL (70-105); LIPASE 17 U/L (8-78); POTASSIUM 3.8 MMOL/L (3.6-5.0); SODIUM 140 MMOL/L (135-145); TOTAL PROTEIN 7.6 GM/DL (6.4-8.2)
--- NOTE | 2021-10-01 14:21 | Diagnostic Imaging Report ---
PROCEDURE: US Gallbladder. TECHNIQUE: Multiple real-time grayscale images were obtained over the right upper quadrant in various projections. INDICATION: Right upper quadrant pain. COMPARISON: CT abdomen pelvis of 05/09/2020 FINDINGS: The liver is normal in size and echogenicity. There is no focal hepatic mass. The main portal vein is patent with antegrade flow. The gallbladder is distended without gallstones, wall thickening, or pericholecystic fluid. The common bile duct measures up to 0.4 cm in diameter. No intrahepatic biliary dilation. Pancreas is obscured by overlying bowel gas. The right kidney is normal in size. No hydronephrosis, shadowing calculi, or suspicious mass lesion. There are few simple cortical base cysts are stable and require no dedicated follow-up imaging. IMPRESSION: 1. No cholelithiasis or biliary obstruction. 2. Normal sonographic appearance of the liver. Dictated by: Dictated on workstation # [id number]
[2021-10-01] MEDS ORDERED: fentaNYL INJ 100 MCG/2 ML AMP IVP STA (14:32)
[2021-10-01] MEDS ORDERED: PANTOPRAZOLE 40 MG (PROTONIX) VIAL IV ONE (14:45)
[2021-10-01] MEDS ORDERED: PANT40TA2 PO (14:54)
[2021-10-01 15:10] VITALS: BP 109/72
== END 2021-10-01 15:10 | disposition home or self-care (01) ==
LOC: EDUNIT# 12:23 → ER 12:24
DX: R10.13 Epigastric pain (principal); R11.0 Nausea; Z87.19 Personal history of other diseases of the digestive system; Z97.5 Presence of (intrauterine) contraceptive device; Z28.310 Unvaccinated for COVID-19
CPT/HCPCS: 36415; 71045; 76705; 80053; 83690; 84484; 85025; 93005

== ENCOUNTER 2022-10-03 16:58 | Emergency (ER) | payer OTHER ==
[~2022-10-03] VITALS: Ht 154.9 cm; Wt 66.6 kg
--- NOTE | 2022-10-03 17:12 | ED Trauma-Multisystem ---
General Chief Complaint: Trauma-Non Activation Stated Complaint: FALL Source of Information: Patient Exam Limitations: No Limitations History of Present Illness Date Seen by Provider: Oct 03, 2022 Time Seen by Provider: 17:00 Initial Comments 37-year-old female presents from the [facility] clinic via EMS. 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 She tells me she fell down 4-5 stairs this morning while she was leaving her home to go to work. She denies hitting her head but has pretty significant cervical and thoracic neck and back pain as well as right shoulder and upper arm pain. She also complains of some left jaw pain. She loss of consciousness. She does have some tingling in her right arm if she moves it a certain way and has increasing pain with any movement of her right arm. She denies any left arm chest abdominal or lower extremity pain or trauma. She is not on any blood thinning medications. She has no medical comorbidities. All other systems reviewed and negative except documented per HPI. Voice recognition software was used to help create this chart Allergies and Home Medications Allergies Coded Allergies: No Known Drug Allergies (Unverified , 05/18/15) Patient Home Medication List Home Medication List Reviewed: Yes Cyclobenzaprine HCl (Cyclobenzaprine HCl) 5 Mg Tablet, 5 MG PO TID Prescribed by: SONYA BARONE MD on 10/03/22 174 Hydrocodone Bit/Acetaminophen (Lortab 5 Mg Tablet) 1 Tab Tab, 1 TAB PO Q4H PRN for PAIN-MODERATE Prescribed by: JACK RAMIREZ on 12/23/18 09 Hydrocodone/Acetaminophen (Hydrocodone-Acetamin 5-325 mg) 5 Mg-325 Mg Tablet, 1 TAB PO Q4H PRN for PAIN-MODERATE (5-7) Prescribed by: SNOYA BARONE MD on 10/03/22 174 Hyoscyamine Sulfate (Levsin-Sl) 0.125 Mg Tab.subl, 0.125 MG SL AC Prescribed by: JACK RAMIREZ on 12/23/18 09 Ibuprofen (Ibu) 800 Mg Tablet, 800 MG PO TID PRN for PAIN-MILD, (Reported) Entered as Reported by: AZAEL FISHER on 12/22/18 1049 Ondansetron (Ondansetron Odt) 4 Mg Tab.rapdis, 4 MG PO Q4H Prescribed by: AMELIA LO on 05/09/201921 Pantoprazole Sodium (Protonix) 40 Mg Tablet.dr, 40 MG PO DAILY, (Reported) Entered as Reported by: AZAEL FISHER on 12/22/18 1049 Pantoprazole Sodium (Protonix) 40 Mg Tablet.dr, 40 MG PO DAILY Prescribed by: AMELIA LO on 05/09/201920 Pantoprazole Sodium (Protonix) 40 Mg Tablet.dr, 40 MG PO DAILY Prescribed by: KEYON TURK on 10/01/21 1454 Sucralfate (Sucralfate) 1 Gm Tablet, 1 GM PO ACHS, (Reported) Entered as Reported by: AZAEL FISHER on 12/22/18 104 Sucralfate (Carafate) 1 Gm Tablet, 1 GM PO QID Prescribed by: AMELIA LO on 05/09/201920 Review of Systems Review of Systems Constitutional: see HPI Past Cmloqit-Hkaeap-Rtviwp Hx Patient Social History Tobacco Use?: No Substance use?: No Alcohol Use?: No Seasonal Allergies Seasonal Allergies: No Past Medical History Surgery/Hospitalization HX: Surgeries: Yes (EGD X 2 11/2018) Section Respiratory: No Cardiac: No Neurological: No Reproductive Disorders: No 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 Cancer Physical Exam Vital Signs Vital Signs - First Documented 10/03/22 16:59 Temp 37.4 Pulse 70 B/P (MAP) 127/102 (110) Pulse Ox 98 O2 Delivery Room Air Height, Weight, BMI Height: 4'11.00" Weight: 134lbs. 0oz. 60.141908cp; 24.00 BMI Method:Actual General Appearance: No Apparent Distress, WD/WN Head: No Evidence of Injury Eyes: Bilateral Eye Normal Inspection, Bilateral Eye PERRL, Bilateral Eye EOMI Ears, Nose, Throat: Hearing Grossly Normal, No Evidence of ENT Injury, No Dental Injury, Other (Mild tenderness to palpation left jaw. No swelling or deformity.) Neck: Supple, Tender Midline (Midline tenderness diffusely in the cervical and upper thoracic spine. Cervical collar is in place. No step-off or deformity.) Cardiovascular: Regular Rate, Rhythm, No Murmur Respiratory: Chest Non Tender, Lungs Clear, Normal Breath Sounds, No Accessory Muscle Use, No Respiratory Distress Gastrointestinal: Normal Bowel Sounds, No Organomegaly, Non Tender, Soft Extremity: Normal Capillary Refill, Other (Significant tenderness starting at the right elbow and going to the right shoulder. The point of most tenderness seems to be the posterior elbow. There is no obvious deformity but there is some mild swelling of the right upper arm. She is neurovascular and sensory intact. Good axillary sensation.) Neurologic/Psychiatric: Alert, Oriented x3, No Motor/Sensory Deficits Skin: Normal Color, Warm/Dry Progress/Results/Core Measures Results/Orders My Orders Orders - SONYA BARONE DO Ct Thoracic Spine Wo (10/03/22 17:06) Shoulder, Right, 3 Views (10/03/22 17:06) Humerus, Right, 2 Views (10/03/22 17:06) Elbow, Right, 3 Views (10/03/22 17:06) Iv/Invasive Line Insertion .IV INSERT (10/03/22 17:08) Fentanyl Inj (Sublimaze Injection) (10/03/22 17:15) Ct Head/Face/Cervical Wo (10/03/22 17:06) Medications Given in ED Vital Signs/I&O 10/03/22 10/03/22 16:59 18:04 Temp 37.4 Pulse 70 70 B/P (MAP) 127/102 (110) 123/72 Pulse Ox 98 98 O2 Delivery Room Air Room Air Departure Communication (Admissions) Patient is hemodynamically stable, neurologically intact. CT scan of her head and neck, thoracic spine are obtained and normal. I have independently reviewed all these images. She has significant pain from her shoulder to her elbow and this is all imaged and normal as well. Cervical collar was removed once CT scanning of her neck was read as negative by radiology. She did have a brief bout of vomiting after I gave her fentanyl, this is likely caused by narcotic itself. She was given Zofran and had no recurrence of vomiting. Tolerating p.o. prior to discharge. Discharged in stable condition. Impression Primary Impression: Fall Qualified Codes: W19.XXXA - Unspecified fall, initial encounter Additional Impressions: Neck pain Thoracic back pain Qualified Codes: M54.6 - Pain in thoracic spine Facial pain Right arm pain Disposition: HOME, SELF-CARE Condition: Stable Departure-Patient Inst. Referrals: [facility]/ (PCP/Family) Primary Care Physician Patient Instructions: Opioids for Short-Term Treatment of Pain ED Add. Discharge Instructions: You were seen in the emergency department today after a fall. CT scans of your face, neck upper back and head are negative for any serious injuries x-rays of your arm shoulder and elbow are negative as well. You will likely be more sore tomorrow than you are today which would be normal. I have provided you with pain medication which you can take as needed. I also provided you with a muscle relaxer, Flexeril, which she can take as needed. Both of these may make you drowsy so do not drive or make important decisions while taking them. He can u se ibuprofen in addition to the above medicines as needed. Return to the emergency department for any severe concerns. Follow with your primary doctor for any nonemergent needs. All discharge instructions reviewed with patient and/or family. Voiced unde rstanding. Usted fue visto en el departamento de emergencias hoy despus de maria esther cada. Las tomografas computarizadas de la lauryn, el west, la parte superior de la espalda y la damon son negativas para cualquier lesin grave. Las radiografas del brazo, el hombro y el codo tambin son negativas. Probablemente estar ms dolorido maana que hoy, lo cual sera normal. Le he proporcionado medicamentos para el dolor que puede ann segn sea necesario. Tambin le proporcion un relajante muscular, Flexeril, que puede ann segn lo necesite. Ambos pueden causarle somnolencia, as que no conduzca ni tome decisiones importantes mientr as los tori. Puede usar ibuprofeno adems de los medicamentos anteriores segn sea necesario. Regrese al departamento de emergencias por cualquier inquietud grave. Siga con rene mdico de cabecera para cualquier necesidad que no sea de emergencia. Todas las instrucciones de jorge revisadas con el paciente y/o la jerzy. Comprensin expresada. Scripts Cyclobenzaprine HCl (Cyclobenzaprine HCl) 5 Mg Tablet 5 MG PO TID for Muscle Spasms for 3 Days, #9 TAB Prov: SONYA BARONE DO 10/03/22 Hydrocodone/Acetaminophen (Hydrocodone-Acetamin 5-325 mg) 5 Mg-325 Mg Tablet 1 TAB PO Q4H PRN for PAIN-MODERATE (5-7) for 3 Days, #12 TAB Prov: SONYA BARONE DO 10/03/22 SONYA BARONE DO Oct 03, 2022 17:12
[2022-10-03] MEDS ORDERED: fentaNYL INJECTION 100 MCG/2 ML VIAL IVP ONE (17:15)
[2022-10-03] MEDS ORDERED: CYCL5TAB PO (17:48)
[2022-10-03] MEDS ORDERED: ACHD5005 PO (17:48)
[2022-10-03] MEDS ORDERED: ONDANSETRON 4 MG/2 ML (SDV) Z0FRAN ONE (17:51)
--- NOTE | 2022-10-03 17:51 | Diagnostic Imaging Report ---
EXAMINATION: CT head, face and CT cervical spine without contrast. TECHNIQUE: Multiple contiguous axial images were obtained through the face, brain and cervical spine without the use of intravenous contrast. Sagittal and coronal reformations through the cervical spine were then performed. All CT scans use one or more of the following dose optimizing techniques: automated exposure control, MA and/or KvP adjustment based on patient size and exam type or iterative reconstruction. HISTORY: Head, neck and face pain after injury COMPARISON: None available. FINDINGS: HEAD: The ventricles and sulci are normal. No abnormal attenuation of brain parenchyma is present. No acute intracranial hemorrhage or abnormal extra-axial fluid collections are present. No hyperdense vessel. The calvarium is intact. The mastoid air cells are clear. The visualized paranasal sinuses are clear. The orbits are normal. C-SPINE: Vertebral body height and alignment are preserved. No acute fracture, dislocation, or destructive osseous process. No significant facet hypertrophy. No significant central canal or neuroforaminal stenosis. The paraspinous soft tissues are normal. The visualized thyroid gland is normal. The visualized lung apices are normal. FACE: No fracture is seen in the face. The nasal bones are normal. Mandible and maxillae are normal. Zygomatic arches are normal. Pterygoid plates are normal. No soft tissue abnormality is seen. IMPRESSION: 1. No acute intracranial abnormality. 2. No cervical spine fracture. 3. No fracture in the face. Dictated by: Dictated on workstation # [id number]
--- NOTE | 2022-10-03 17:52 | Diagnostic Imaging Report ---
PROCEDURE: CT thoracic spine without contrast. TECHNIQUE: Multiple axial computerized tomography images were obtained from the base of the thoracic spine to the vertex without intravenous contrast. Auto Exposure Controls were utilized during the CT exam to meet ALARA standards for radiation dose reduction. INDICATION: Fell down stairs. Pain. EXAMINATION: Thoracic spine CT 10/03/2022 FINDINGS: Normal height and alignment of the vertebral bodies noted. No subluxations or acute fracture deformities appreciated. Visualized lungs demonstrate bilateral areas of atelectasis. Infiltrates difficult to exclude but findings may be accentuated by poor inspiratory volume at the time of imaging. Correlate clinically. Innumerable cysts noted in the right kidney. IMPRESSION: 1. No acute osseous abnormality within the spine. 2. Vague groundglass diffuse airspace opacities throughout the lung; see above discussion. Areas of contusion difficult to exclude but findings likely due to poor inspiratory volume. 3. Innumerable cystic lesions in the right kidney. Dictated by: Dictated on workstation # [id number]
--- NOTE | 2022-10-03 17:58 | Diagnostic Imaging Report ---
EXAMINATION: Right elbow radiographs. EXAM DATE: 10/03/2022 5:49 PM COMPARISON: None available. HISTORY: Right elbow pain. TECHNIQUE: 3 views. FINDINGS: There is no acute fracture, dislocation, or destructive osseous process. The joint spaces are normal. The soft tissues are normal. IMPRESSION: No acute osseous abnormality. Dictated by: Dictated on workstation # [id number]
--- NOTE | 2022-10-03 17:59 | Diagnostic Imaging Report ---
EXAMINATION: Right humerus radiographs. EXAM DATE: 10/03/2022 5:49 PM COMPARISON: None available. HISTORY: Right arm pain. TECHNIQUE: 2 views. FINDINGS: There is no acute fracture, dislocation, or destructive osseous process. The joint spaces are normal. The soft tissues are normal. IMPRESSION: No acute osseous abnormality. Dictated by: Dictated on workstation # [id number]
[2022-10-03] MEDS ORDERED: ONDANSETRON 4 MG/2 ML (SDV) Z0FRAN IVP ONE (18:00)
--- NOTE | 2022-10-03 18:00 | Diagnostic Imaging Report ---
EXAMINATION: Right shoulder radiographs. EXAM DATE: 10/03/2022 5:49 PM COMPARISON: None available. HISTORY: Right shoulder pain. TECHNIQUE: 3 views. FINDINGS: There is no acute fracture, dislocation or destructive osseous process. The joint spaces are normal. The soft tissues are normal. IMPRESSION: No acute osseous abnormality. Dictated by: Dictated on workstation # [id number]
[2022-10-03 18:04] VITALS: BP 123/72
== END 2022-10-03 18:10 | disposition home or self-care (01) ==
LOC: EDUNIT# 16:58 → ER 17:02
DX: M54.2 Cervicalgia (principal); M54.6 Pain in thoracic spine; M79.601 Pain in right arm; R68.84 Jaw pain; W10.9XXA Fall (on) (from) unspecified stairs and steps, initial encounter; Y92.009 Unspecified place in unspecified non-institutional (private) residence as the place of occurrence of the external cause
CPT/HCPCS: 70450; 70486; 72125; 72128; 73030; 73060; 73080; 96374; 96375